=== PATIENT | male | born 1935 | race Caucasian/White ===

== ENCOUNTER 2017-08-29 20:12 | Emergency (ER) | payer MEDICARE, BC ==
[2017-08-29 20:33] VITALS: BP 126/62
--- NOTE | 2017-08-29 21:19 | EDM.PDOC ---
ED HPI GENERAL MEDICAL PROBLEM - General Chief Complaint: Syncope Stated Complaint: DIZZY Time Seen by Provider: 08/29/17 21:05 Source of Information: Reports: Patient, Family () History Limitations: Reports: No Limitations - History of Present Illness INITIAL COMMENTS - FREE TEXT/NARRATIVE: The patient states that he felt lightheaded around 19:40 this evening, while walking from the bathroom. The symptoms came on suddenly, but only lasted for about 5 minutes, resolving when he sat down. He had a second episode around 20: 30, also lasting about 5 minutes. The patient denies any other symptoms, such as headache, chest pain, palpitations, dyspnea, nausea, emesis, constipation, diarrhea, abdominal pain, or urinary symptoms. No prior similar symptoms. The patient's PCP is Dr. Pepper. - Related Data Allergies Allergy/AdvReac Type Severity Reaction Status Date / Time Fish Containing Products Allergy Airway Verified 08/29/17 20:26 Tightness fish derived Allergy Airway Verified 08/29/17 20:26 Tightness fish oil Allergy Airway Verified 08/29/17 20:26 Tightness fish Allergy Airway Uncoded 08/29/17 20:26 Tightness Home Meds: Home Meds Aspirin [Ecotrin] 1 tab PO DAILY 11/12/13 [History] Finasteride [Proscar] 1 tab PO DAILY 11/12/13 [History] Hyalur Ac/Chond Sul/Colg II/AA [Hyaluronic Acid 40 MG] 120 mg PO DAILY 11/12/13 [History] Hydrochlorothiazide 1 cap PO BID 11/12/13 [History] Lutein/Min/Vit C/Vit E Acetate [Ocuvite Lutein] 2 cap PO DAILY 11/12/13 [History ] Niacin 1 cap PO BID 11/12/13 [History] Tamsulosin [Flomax] 1 cap PO DAILY 11/12/13 [History] Past Medical History HEENT History: Reports: Cataract, Glaucoma Cardiovascular History: Reports: High Cholesterol (resolved after weight loss), Hypertension Genitourinary History: Reports: BPH Musculoskeletal History: Reports: Osteoarthritis - Past Surgical History HEENT Surgical History: Reports: Cataract Surgery, Oral Surgery ([place] teeth extraction), Tonsillectomy GI Surgical History: Reports: Appendectomy, Cholecystectomy Neurological Surgical History: Reports: Lumbar Spine (Laminectomy) Musculoskeletal Surgical History: Reports: Hip Replacement (right) Social & Family History - Tobacco Use Smoking Status *Q: Former Smoker Years of Tobacco use: 2 Packs/Tins Daily: 1 Second Hand Smoke Exposure: No - Caffeine Use Caffeine Use: Reports: Coffee - Alcohol Use Alcohol Use History: Yes Date/Time of Last Drink Comment: None since 2010 - Recreational Drug Use Recreational Drug Use: No - Living Situation & Occupation Living situation: Reports: , with Spouse Occupation: Retired ED ROS GENERAL - Review of Systems Review Of Systems: ROS reveals no pertinent complaints other than HPI. ED EXAM, DIZZINESS - Physical Exam Exam: See Below Exam Limited By: No Limitations General Appearance: Alert, WD/WN, No Apparent Distress Eye Exam: Bilateral Eye: Normal Inspection Ears: Normal External Exam Nose: Normal Inspection, No Blood Throat/Mouth: Normal Inspection, Normal Lips, Normal Teeth, Normal Gums, Normal Oropharynx, Normal Voice, No Airway Compromise Head Exam: Atraumatic Neck: Normal Inspection, Full Range of Motion Respiratory/Chest: No Respiratory Distress, Lungs Clear, Normal Breath Sounds, No Accessory Muscle Use Cardiovascular: Normal Peripheral Pulses, Regular Rate, Rhythm, No Gallop, No JVD, No Murmur, No Rub, Other (Trace bilateral pretibial edema) GI/Abdominal: Normal Bowel Sounds, Soft, Non-Tender, No Organomegaly, No Distention, No Abnormal Bruit, No Mass (Male) Exam: Deferred Rectal (Males) Exam: Deferred Neurological: Alert, No Motor/Sensory Deficits, Oriented x 3 Back Exam: Normal Inspection, Full Range of Motion, NT Extremities: Normal Inspection, Normal Range of Motion, No Pedal Edema, Normal Capillary Refill Psychiatric: Normal Affect Skin Exam: Warm, Dry, Intact, Normal Color, No Rash EKG INTERPRETATION EKG Date: 08/29/17 Time: 21:08 Rhythm: Other (Sinus bradycardia) Rate (Beats/Min): 57 [place]: Normal P-Wave: Present QRS: RBBB ST-T: Normal QT: Normal Comparison: No Change (11/12/2013) Course - Vital Signs Last Recorded V/S: Last Vital Signs Temp 36.1 C 08/29/17 20:28 Pulse 64 08/29/17 20:28 Resp 14 08/29/17 20:28 BP 126/62 08/29/17 20:28 Pulse Ox 96 08/29/17 20:28 Orthostatic Blood Pressure [ 142/67 Standing] Orthostatic Blood Pressure [ 149/78 Sitting] Orthostatic Blood Pressure [ 138/67 Supine] - Orders/Labs/Meds Orders: Active Orders 24 hr Category Date Time Status EKG Documentation Completion [RC] STAT Care 08/29/17 21:06 Active Orthostatic Vital Signs [RC] STAT Care 08/29/17 21:06 Active UA W/MICROSCOPIC [URIN] Stat Lab 08/29/17 21:56 Ordered Labs: Laboratory Tests 08/29/17 08/29/17 08/29/17 Range/Units 21:30 21:30 21:56 WBC 8.00 (4.23-9.07) K/mm3 RBC 4.27 L (4.63-6.08) M/mm3 Hgb 13.4 L (13.7-17.5) gm/L Hct 40.4 (40.1-51.0) % MCV 94.6 H (79.0-92.2) fl MCH 31.4 (25.7-32.2) pg MCHC 33.2 (32.2-35.5) g/dl RDW Std Deviation 44.4 H (35.1-43.9) fL Plt Count 200 (163-337) K/mm3 MPV 9.5 (9.4-12.3) fl Neutrophils % (Manual) 67 H (40-60) % Band Neutrophils % 0 (0-10) % Lymphocytes % (Manual) 24 (20-40) % Atypical Lymphs % 0 % Monocytes % (Manual) 5 (2-10) % Eosinophils % (Manual) 4 (0.8-7.0) % Basophils % (Manual) 0 L (0.2-1.2) Platelet Estimate Adequate RBC Morph Comment Normal Sodium 142 (136-145) mEq/L Potassium 3.3 L (3.5-5.1) mEq/L Chloride 108 H (98-107) mEq/L Carbon Dioxide 28 (21-32) mEq/L Anion Gap 9.3 (5-15) BUN 24 H (7-18) mg/dL Creatinine 1.0 (0.7-1.3) mg/dL Est Cr Clr Drug Dosing 61.70 mL/min Estimated GFR (MDRD) > 60 (>60) mL/min BUN/Creatinine Ratio 24.0 H (14-18) Glucose 102 (83-115) mg/dL Calcium 8.1 L (8.5-10.1) mg/dL Magnesium 1.8 (1.8-2.4) mg/dl Total Bilirubin 0.6 (0.2-1.0) mg/dL AST 17 (15-37) U/L ALT 16 (16-63) U/L Alkaline Phosphatase 71 (46-116) U/L Troponin I < 0.017 (0.00-0.056) ng/mL Total Protein 6.4 (6.4-8.2) g/dl Albumin 3.3 L (3.4-5.0) g/dl Globulin 3.1 gm/dL Albumin/Globulin Ratio 1.1 (1-2) Urine Color Yellow (Yellow) Urine Appearance Clear (Clear) Urine pH 7.0 (5.0-8.0) Ur Specific [place] 1.025 (1.005-1.030) Urine Protein Negative (Negative) Urine Glucose (UA) Negative (Negative) Urine Ketones Negative (Negative) Urine Occult Blood Negative (Negative) Urine Nitrite Negative (Negative) Urine Bilirubin Negative (Negative) Urine Urobilinogen 1.0 (0.2-1.0) Ur Leukocyte Esterase Negative (Negative) Urine RBC Not seen (0-5) /hpf Urine WBC 0-5 (0-5) /hpf Ur Epithelial Cells 0-5 (0-5) /hpf Urine Bacteria Not seen (FEW) /hpf Urine Mucus Not seen (FEW) /hpf - Re-Assessments/Exams Free Text/Narrative Re-Assessment/Exam: 08/29/17 21:08 The patient is not orthostatic. 08/29/17 22:28 Case discussed with the patient and his . Today's workup is unremarkable, and does not explain the cause of his symptoms. The patient feels well enough to go home. I am recommending that if his symptoms recur, that he either returns to the ED or follows up with his PCP, Dr. Pepper. Departure - Departure Time of Disposition: 22:30 Disposition: Home, Self-Care 01 Condition: Good Clinical Impression: Intermittent lightheadedness - Discharge Information Referrals: Trevor Pepper MD [Primary Care Provider] - Forms: ED Department Discharge Additional Instructions: You were seen in the emergency room for 2 brief episodes of lightheadedness. Workup in the ER included blood work, a urinalysis, positional blood pressure checks, and an ECG. Your entire workup was unremarkable, and does not explain the cause of your symptoms. If your symptoms persist, either return to the ER for reevaluation, or follow- up with your PCP, Dr. Pepper. - My Orders Last 24 Hours: My Active Orders 08/29/17 21:06 EKG Documentation Completion [RC] STAT Orthostatic Vital Signs [RC] STAT 08/29/17 21:56 UA W/MICROSCOPIC [URIN] Stat - Assessment/Plan Last 24 Hours: My Active Orders 08/29/17 21:06 EKG Documentation Completion [RC] STAT Orthostatic Vital Signs [RC] STAT 08/29/17 21:56 UA W/MICROSCOPIC [URIN] Stat
== END 2017-08-29 22:43 | disposition home or self-care (01) ==
LOC: JD.ED 20:12
DX: R42 Dizziness and giddiness (principal); E78.00 Pure hypercholesterolemia, unspecified; Z91.013 Allergy to seafood; Z79.82 Long term (current) use of aspirin; Z79.899 Other long term (current) drug therapy; Z87.891 Personal history of nicotine dependence
CPT/HCPCS: 36415; 80053; 81001; 83735; 84484; 85007; 85027; 93005; 93010; 99284-25

== ENCOUNTER 2017-10-21 17:45 | Emergency (ER) | payer MEDICARE, BC ==
[2017-10-21 17:55] VITALS: BP 148/74
[2017-10-21] MEDS ORDERED: Sodium Chloride 0.9% 10 ML Syringe FLUSH PRN (18:22)
[2017-10-21] MEDS ORDERED: Sodium Chloride 0.9% 500 ML IV ONE (18:30)
--- NOTE | 2017-10-21 18:33 | EDM.PDOC ---
ED HPI GENERAL MEDICAL PROBLEM - General Chief Complaint: General Stated Complaint: DIZZYNESS Time Seen by Provider: 10/21/17 18:22 Source of Information: Reports: Patient, RN Notes Reviewed - History of Present Illness INITIAL COMMENTS - FREE TEXT/NARRATIVE: 82-year-old male comes in with symptoms of weakness lightheadedness, near syncope. States this initially had him about an hour and a half ago when he had just stood up and walked into the kitchen. Started feeling lightheaded and dizzy and had to sit down. He felt better with some rest and time but then when he went towards a short time later sputum again. Vertigo. He denies chest pain or difficulty breathing. No abdominal pain nausea vomiting or diarrhea. He has no known history for coronary artery disease. He is on hydrochlorothiazide for hypertension. - Related Data Allergies Allergy/AdvReac Type Severity Reaction Status Date / Time Fish Containing Products Allergy Airway Verified 10/21/17 17:54 Tightness fish derived Allergy Airway Verified 10/21/17 17:54 Tightness fish oil Allergy Airway Verified 10/21/17 17:54 Tightness fish Allergy Airway Uncoded 10/21/17 17:54 Tightness Home Meds: Home Meds Finasteride [Proscar] 1 tab PO DAILY 11/12/13 [History] Tamsulosin [Flomax] 2 cap PO BEDTIME 11/12/13 [History] hydroCHLOROthiazide [Hydrochlorothiazide] 1 cap PO DAILY 11/12/13 [History] Bimatoprost [LUMIGAN 0.01% Ophth Soln] 1 drop EYERT DAILY 10/21/17 [History] Brimonidine [Alphagan 0.2% Ophth Soln] 1 drop EYEBOTH BID 10/21/17 [History] Ciprofloxacin [Ciprofloxacin 0.3% Ophth Soln] 1 drop EYERT TID 10/21/17 [History ] Flu Vaccin [id number] Up/Pf [Afluria [id number] Syringe] 1 injection INJECT ASDIRECTED 10/21/17 [History] Gentamicin [Gentak 0.3% Ophth Oint] 1 drop EYERT Q4H 10/21/17 [History] Ketoconazole [Nizoral 2% Crm] 1 applic TOP BID 10/21/17 [History] Latanoprost/Pf [Latanoprost 0.005% Eye Drop] 1 drop EYEBOTH BEDTIME 10/21/17 [ History] Timolol Maleate [Timoptic 0.5% Ophth Soln] 1 drop EYEBOTH DAILY 10/21/17 [ History] Triamcinolone Acetonide [Triamcinolone Acetonide 0.1% Crm] 1 applic TOP BID [History] Past Medical History HEENT History: Reports: Cataract, Glaucoma Cardiovascular History: Reports: High Cholesterol, Hypertension Other Cardiovascular History: Had hypercholesteremia but got his weight under control and no longer needed medication. Genitourinary History: Reports: BPH Musculoskeletal History: Reports: Osteoarthritis - Past Surgical History HEENT Surgical History: Reports: Cataract Surgery, Oral Surgery, Tonsillectomy GI Surgical History: Reports: Appendectomy, Cholecystectomy Neurological Surgical History: Reports: Lumbar Spine Musculoskeletal Surgical History: Reports: Hip Replacement Social & Family History - Tobacco Use Smoking Status *Q: Former Smoker Used Tobacco, but Quit: Yes Month/Year Tobacco Last Used: 30 years - Caffeine Use Caffeine Use: Reports: Coffee, Tea - Recreational Drug Use Recreational Drug Use: No - Living Situation & Occupation Living situation: Reports: , with Spouse Occupation: Retired ED ROS GENERAL - Review of Systems Review Of Systems: See Below Constitutional: Denies: Fever, Chills, Diaphoresis HEENT: Reports: No Symptoms Respiratory: Denies: Shortness of Breath Cardiovascular: Denies: Chest Pain GI/Abdominal: Denies: Abdominal Pain, Hematemesis, Hematochezia, Melena, Vomiting Musculoskeletal: Reports: No Symptoms Skin: Reports: No Symptoms Neurological: Reports: Dizziness. Denies: Numbness, Tingling, Trouble Speaking , Difficulty Walking ED EXAM, GENERAL - Physical Exam Exam: See Below General Appearance: Alert, No Apparent Distress Throat/Mouth: Normal Inspection, Normal Oropharynx Head: Atraumatic Neck: Supple, Full Range of Motion Respiratory/Chest: No Respiratory Distress, Lungs Clear, Normal Breath Sounds Cardiovascular: Regular Rate, Rhythm GI/Abdominal: Soft, Non-Tender Back Exam: No: CVA Tenderness (L), CVA Tenderness (R) Extremities: Normal Inspection. No: Pedal Edema, Leg Pain Neurological: Alert, Oriented, No Motor/Sensory Deficits Skin Exam: Warm, Dry, Normal Color EKG INTERPRETATION EKG Date: 10/21/17 Rhythm: NSR [place]: Normal P-Wave: Present QRS: RBBB ST-T: Other (T-wave inversion V2 and V3) Course - Vital Signs Last Recorded V/S: Last Vital Signs Temp 98.5 F 10/21/17 17:52 Pulse 63 10/21/17 17:52 Resp 18 10/21/17 17:52 BP 148/74 H 10/21/17 17:52 Pulse Ox 94 L 10/21/17 17:52 Orthostatic Blood Pressure [ 142/76 Standing] Orthostatic Blood Pressure [ 146/83 Sitting] Orthostatic Blood Pressure [ 146/74 Supine] - Orders/Labs/Meds Orders: Active Orders 24 hr Category Date Time Status EKG 12 Lead [EKG Documentation Completion] [RC] STAT Care 10/21/17 18:22 Active Orthostatic Vital Signs [RC] ASDIRECTED Care 10/21/17 18:03 Active Peripheral IV Care [RC] . DIRECTED Care 10/21/17 18:23 Active Sodium Chloride 0.9% [Saline Flush] Med 10/21/17 18:22 Active 10 ml FLUSH ASDIRECTED PRN Peripheral IV Insertion Adult [OM.PC] Stat Oth 10/21/17 18:22 Ordered Medication Orders Sodium Chloride (Saline Flush) 10 ml FLUSH ASDIRECTED PRN PRN Reason: Keep Vein Open Labs: Laboratory Tests 10/21/17 10/21/17 Range/Units 18:54 18:54 WBC 10.30 H (4.23-9.07) K/mm3 RBC 4.45 L (4.63-6.08) M/mm3 Hgb 14.0 (13.7-17.5) gm/L Hct 42.5 (40.1-51.0) % MCV 95.5 H (79.0-92.2) fl MCH 31.5 (25.7-32.2) pg MCHC 32.9 (32.2-35.5) g/dl RDW Std Deviation 45.2 H (35.1-43.9) fL Plt Count 208 (163-337) K/mm3 MPV 9.6 (9.4-12.3) fl Neut % (Auto) 71.5 H (34.0-67.9) % Lymph % (Auto) 16.5 L (21.8-53.1) % [place] % (Auto) 8.3 (5.3-12.2) % Eos % (Auto) 2.9 (0.8-7.0) Baso % (Auto) 0.4 (0.1-1.2) % Neut # (Auto) 7.37 H (1.78-5.38) K/mm3 Lymph # (Auto) 1.70 (1.32-3.57) K/mm3 [place] # (Auto) 0.85 H (0.30-0.82) K/mm3 Eos # (Auto) 0.30 (0.04-0.54) K/mm3 Baso # (Auto) 0.04 (0.01-0.08) K/mm3 Sodium 143 (136-145) mEq/L Potassium 3.8 (3.5-5.1) mEq/L Chloride 107 (98-107) mEq/L Carbon Dioxide 28 (21-32) mEq/L Anion Gap 11.8 (5-15) BUN 22 H (7-18) mg/dL Creatinine 0.9 (0.7-1.3) mg/dL Est Cr Clr Drug Dosing 68.56 mL/min Estimated GFR (MDRD) > 60 (>60) mL/min BUN/Creatinine Ratio 24.4 H (14-18) Glucose 107 (83-115) mg/dL Calcium 8.4 L (8.5-10.1) mg/dL Total Bilirubin 0.8 (0.2-1.0) mg/dL AST 17 (15-37) U/L ALT 20 (16-63) U/L Alkaline Phosphatase 74 (46-116) U/L Troponin I < 0.017 (0.00-0.056) ng/mL Total Protein 6.9 (6.4-8.2) g/dl Albumin 3.4 (3.4-5.0) g/dl Globulin 3.5 gm/dL Albumin/Globulin Ratio 1.0 (1-2) Meds: Medications Generic Name Dose Route Start Last Admin Trade Name Freq PRN Reason Stop Dose Admin Sodium Chloride 10 ml 10/21/17 18:22 Saline Flush FLUSH ASDIRECTED PRN Keep Vein Open Discontinued Medications Generic Name Dose Route Start Last Admin Trade Name Freq PRN Reason Stop Dose Admin Sodium Chloride 500 mls @ 999 mls/hr 10/21/17 18:30 08/16/18 19:10 Normal Saline IV 10/21/17 19:00 999 mls/hr .BOLUS ONE Administration Departure - Departure Time of Disposition: 19:37 Disposition: Home, Self-Care 01 Condition: Fair Clinical Impression: Near syncope - Discharge Information Referrals: Trevor Pepper MD [Primary Care Provider] - Forms: ED Department Discharge Additional Instructions: Drink plenty of water to maintain hydration, continue current medications as prescribed. Carotid ultrasound test to look for possible blockage of your carotid arteries. Order has been written and sent over to Radiology. They will call you in the morning to set up a time. You can than obtain results when you see Dr. Thompson later next week. If you do get dizzy standing at any time be sure to sit or lay down and be sure to get your head down as low as possible as discussed. Return to ED as needed if symptoms worsening in any way. - My Orders Last 24 Hours: My Active Orders 10/21/17 18:22 EKG 12 Lead [EKG Documentation Completion] [RC] STAT Sodium Chloride 0.9% [Saline Flush] 10 ml FLUSH ASDIRECTED PRN Peripheral IV Insertion Adult [OM.PC] Stat 10/21/17 18:23 Peripheral IV Care [RC] . DIRECTED - Assessment/Plan Last 24 Hours: My Active Orders 10/21/17 18:22 EKG 12 Lead [EKG Documentation Completion] [RC] STAT Sodium Chloride 0.9% [Saline Flush] 10 ml FLUSH ASDIRECTED PRN Peripheral IV Insertion Adult [OM.PC] Stat 10/21/17 18:23 Peripheral IV Care [RC] . DIRECTED
== END 2017-10-21 19:50 | disposition home or self-care (01) ==
LOC: JD.ED 17:45
DX: R55 Syncope and collapse (principal); I10 Essential (primary) hypertension; Z79.899 Other long term (current) drug therapy; Z87.891 Personal history of nicotine dependence; Z91.013 Allergy to seafood
CPT/HCPCS: 36415; 80053; 84484; 85025; 93005; 96360; 99284; J7040

== ENCOUNTER 2019-09-12 15:50 | Emergency (ER) | payer MEDICARE, BC ==
[2019-09-12] MEDS ORDERED: Sodium Chloride 0.9% 10 ML Syringe FLUSH PRN (16:06)
[2019-09-12] MEDS ORDERED: Diltiazem 50 MG/10 ML SDV IVPUSH ONE (16:08)
[2019-09-12] MEDS ORDERED: Diltiazem 100 MG in Sodium Chloride 0.9% 100 ML IV SCH (16:15)
--- NOTE | 2019-09-12 16:51 | CR ---
Chest: Portable view of the chest was obtained. Comparison: Prior chest x-ray of 02/03/18. Heart size is within normal limits for portable technique. Tortuous thoracic aorta is seen. Lungs are clear with no acute parenchymal change. Bony structures are grossly intact. Impression: 1. Nothing acute is identified on portable chest x-ray. 2. No change from previous chest x-ray is seen. Diagnostic code #1 This report was dictated in MDT
--- NOTE | 2019-09-12 17:57 | EDM.PDOC ---
ED HPI GENERAL MEDICAL PROBLEM - General Chief Complaint: Chest Pain Stated Complaint: CHEST PAIN Time Seen by Provider: 09/12/19 16:03 Source of Information: Reports: Patient History Limitations: Reports: No Limitations - History of Present Illness INITIAL COMMENTS - FREE TEXT/NARRATIVE: The patient presents with chest pain. He was picking weeds today and he developed some chest pain. He also has a fast heart rate. He did not notice it was fast. He has no fever, chills, cough, congestion, runny nose, shortness of breath, abdominal pain, nausea or vomiting. He has no history of A-fib or heart disease. He does have hypertension. Onset: Sudden Duration: Hour(s): Location: Reports: Chest Quality: Reports: Sharp Severity: Moderate Improves with: Reports: None Worsens with: Reports: None Associated Symptoms: Reports: Chest Pain. Denies: Confusion, Cough, Fever/Chills, Headaches, Nausea/Vomiting, Shortness of Breath Mid-Sternal Pain Score (Numeric/FACES): 6 - Related Data Allergies Allergy/AdvReac Type Severity Reaction Status Date / Time Fish Containing Products Allergy Airway Verified 02/03/18 07:41 Tightness fish derived Allergy Airway Verified 02/03/18 07:41 Tightness fish oil Allergy Airway Verified 02/03/18 07:41 Tightness fish Allergy Airway Uncoded 02/03/18 07:41 Tightness Home Meds: Home Meds Finasteride [Proscar] 5 mg PO DAILY 11/12/13 [History] Tamsulosin [Flomax] 0.8 mg PO BEDTIME 11/12/13 [History] hydroCHLOROthiazide [Hydrochlorothiazide] 1 cap PO DAILY 11/12/13 [History] Ketoconazole [Nizoral 2% Crm] 1 applic TOP BID 10/21/17 [History] Latanoprost/Pf [Latanoprost 0.005% Eye Drop] 1 drop EYEBOTH BEDTIME 10/21/17 [History] Aspirin 325 mg PO DAILY 02/03/18 [History] Niacin [Niacin ER] 750 mg PO BEDTIME 02/03/18 [History] Metoprolol Succinate 25 mg PO DAILY #30 tab.er.24h 09/12/19 [Rx] Rivaroxaban [Xarelto] 20 mg PO DAILY #30 tablet 09/12/19 [Rx] Past Medical History HEENT History: Reports: Cataract, Glaucoma Cardiovascular History: Reports: High Cholesterol, Hypertension Other Cardiovascular History: Had hypercholesteremia but got his weight under control and no longer needed medication. Genitourinary History: Reports: BPH Musculoskeletal History: Reports: Osteoarthritis Neurological History: Reports: Alzheimers Disease - Infectious Disease History Infectious Disease History: Reports: Chicken Pox, Measles, Mumps - Past Surgical History HEENT Surgical History: Reports: Cataract Surgery, Oral Surgery, Tonsillectomy GI Surgical History: Reports: Appendectomy, Cholecystectomy Neurological Surgical History: Reports: Lumbar Spine Musculoskeletal Surgical History: Reports: Hip Replacement Social & Family History - Family History Family Medical History: Noncontributory - Tobacco Use Smoking Status *Q: Never Smoker Second Hand Smoke Exposure: No - Caffeine Use Caffeine Use: Reports: Coffee, Tea - Living Situation & Occupation Living situation: Reports: , with Spouse Occupation: Retired ED ROS GENERAL - Review of Systems Review Of Systems: See Below Constitutional: Reports: No Symptoms HEENT: Reports: No Symptoms Respiratory: Reports: No Symptoms Cardiovascular: Reports: Chest Pain Endocrine: Reports: No Symptoms GI/Abdominal: Reports: No Symptoms : Reports: No Symptoms Musculoskeletal: Reports: No Symptoms ED EXAM, GENERAL - Physical Exam Exam: See Below Exam Limited By: No Limitations General Appearance: Alert, No Apparent Distress Ears: Normal External Exam Nose: Normal Inspection Head: Atraumatic, Normocephalic Neck: Normal Inspection Respiratory/Chest: No Respiratory Distress, Lungs Clear, Normal Breath Sounds Cardiovascular: Tachycardia, Irregularly Irregular GI/Abdominal: Soft, Non-Tender, No Organomegaly, No Mass Back Exam: Normal Inspection Extremities: Normal Inspection EKG INTERPRETATION EKG Date: 09/12/19 Time: 16:04 Rhythm: A-Fib Rate (Beats/Min): 120 [place]: Normal QRS: Normal ST-T: Normal QT: Normal Course - Vital Signs Last Recorded V/S: Last Vital Signs Temp 97.6 F 09/12/19 16:03 Pulse 125 H 09/12/19 16:03 Resp 23 H 09/12/19 16:03 BP 131/88 09/12/19 16:03 Pulse Ox 97 09/12/19 16:03 - Orders/Labs/Meds Orders: Active Orders 24 hr Category Date Time Status Cardiac Monitoring [RC] . DIRECTED Care 09/12/19 16:06 Active EKG Documentation Completion [RC] ASDIRECTED Care 09/12/19 17:46 Active EKG Documentation Completion [RC] STAT Care 09/12/19 16:07 Active Peripheral IV Care [RC] . DIRECTED Care 09/12/19 16:07 Active TROPONIN I [CHEM] Stat Lab 09/12/19 18:03 Ordered Diltiazem [Cardizem] 100 mg Med 09/12/19 16:15 Active Sodium Chloride 0.9% [Normal Saline] 100 ml IV TITRATE Sodium Chloride 0.9% [Saline Flush] Med 09/12/19 16:06 Active 10 ml FLUSH ASDIRECTED PRN Peripheral IV Insertion Adult [OM.PC] Stat Oth 09/12/19 16:06 Ordered EKG 12 Lead [EK] Stat Ther 09/12/19 17:46 Ordered Medication Orders Diltiazem HCl 100 mg/ Sodium (Chloride) 100 mls @ 10 mls/hr IV TITRATE KI; Protocol Last Admin: 09/12/19 16:42 Dose: 10 mg/hr, 10 mls/hr Documented by: HERMMIC Sodium Chloride (Saline Flush) 10 ml FLUSH ASDIRECTED PRN PRN Reason: Keep Vein Open Last Admin: 09/12/19 17:12 Dose: 10 ml Documented by: HERMMIC Labs: Laboratory Tests 09/12/19 09/12/19 Range/Units 16:00 16:00 WBC 6.49 (4.23-9.07) K/mm3 RBC 4.33 L (4.63-6.08) M/mm3 Hgb 13.6 L (13.7-17.5) gm/dl Hct 41.7 (40.1-51.0) % MCV 96.3 H (79.0-92.2) fl MCH 31.4 (25.7-32.2) pg MCHC 32.6 (32.2-35.5) g/dl RDW Std Deviation 45.1 H (35.1-43.9) fL Plt Count 206 (163-337) K/mm3 MPV 10.3 (9.4-12.3) fl Neut % (Auto) 63.6 (34.0-67.9) % Lymph % (Auto) 22.2 (21.8-53.1) % [place] % (Auto) 9.6 (5.3-12.2) % Eos % (Auto) 3.5 (0.8-7.0) Baso % (Auto) 0.6 (0.1-1.2) % Neut # (Auto) 4.13 (1.78-5.38) K/mm3 Lymph # (Auto) 1.44 (1.32-3.57) K/mm3 [place] # (Auto) 0.62 (0.30-0.82) K/mm3 Eos # (Auto) 0.23 (0.04-0.54) K/mm3 Baso # (Auto) 0.04 (0.01-0.08) K/mm3 Sodium 144 (136-145) mEq/L Potassium 3.3 L (3.5-5.1) mEq/L Chloride 107 (98-107) mEq/L Carbon Dioxide 28 (21-32) mEq/L Anion Gap 12.3 (5-15) BUN 20 H (7-18) mg/dL Creatinine 1.0 (0.7-1.3) mg/dL Est Cr Clr Drug Dosing 59.61 mL/min Estimated GFR (MDRD) > 60 (>60) mL/min BUN/Creatinine Ratio 20.0 H (14-18) Glucose 126 H (83-115) mg/dL Calcium 8.7 (8.5-10.1) mg/dL Total Bilirubin 1.0 (0.2-1.0) mg/dL AST 16 (15-37) U/L ALT 20 (16-63) U/L Alkaline Phosphatase 64 (46-116) U/L Troponin I < 0.017 (0.00-0.056) ng/mL Total Protein 7.0 (6.4-8.2) g/dl Albumin 3.5 (3.4-5.0) g/dl Globulin 3.5 gm/dL Albumin/Globulin Ratio 1.0 (1-2) TSH 3rd Generation 1.582 (0.358-3.74) uIU/mL Meds: Medications Generic Name Dose Route Start Last Admin Trade Name Freq PRN Reason Stop Dose Admin Diltiazem HCl 100 mg/ Sodium 100 mls @ 10 mls/hr 09/12/19 16:15 09/12/19 16:42 Chloride IV 10 mg/hr TITRATE KI 10 mls/hr Administration Protocol 10 MG/HR Sodium Chloride 10 ml 09/12/19 16:06 09/12/19 17:12 Saline Flush FLUSH 10 ml ASDIRECTED PRN Administration Keep Vein Open Discontinued Medications Generic Name Dose Route Start Last Admin Trade Name [place] PRN Reason Stop Dose Admin Diltiazem HCl 10 mg 09/12/19 16:08 09/12/19 16:28 Cardizem IVPUSH 09/12/19 16:09 10 mg ONETIME ONE Administration Metoprolol Tartrate 25 mg 09/12/19 18:07 Lopressor PO 09/12/19 18:08 ONETIME ONE Rivaroxaban 20 mg 09/12/19 18:06 Xarelto PO 09/12/19 18:07 ONETIME ONE - Re-Assessments/Exams Free Text/Narrative Re-Assessment/Exam: 09/12/19 18:19 I ordered an IV saline lock, EKG, CXR, labs, cardizem bolus of 10mg IV and a drip at 10mg/hr. His EKG shows atrial fibrillation at 120. His CXR looks good. His CBC and CMP look good. His troponin is negative. His TSH is normal. 09/12/19 18:20 He converted to a NSR with RBBB. He is feeling good now. I will get a repeat troponin. I will give him a dose of xarelto and some lopressor. I will discharge him home and get him on those medications and have him follow up with Dr Thompson. Departure - Departure Time of Disposition: 18:25 Disposition: Home, Self-Care 01 Condition: Good Clinical Impression: Atrial fibrillation with RVR Prescriptions: Metoprolol Succinate 25 mg PO DAILY #30 tab.er.24h Rivaroxaban [Xarelto] 20 mg PO DAILY #30 tablet Referrals: Trevor Pepper MD [Primary Care Provider] - 3 Days Forms: ED Department Discharge Additional Instructions: Drink plenty of fluids. Take your medications as prescribed. Take the xarelto at dinner. Take the metoprlol 25mg daily. Follow up with Dr Thompson. Please return if you are worse. Sepsis Event Note (ED) - Evaluation Sepsis Screening Result: No Definite Risk - Focused Exam Vital Signs: Vital Signs Temp Pulse Resp BP Pulse Ox 09/12/19 16:03 97.6 F 125 H 23 H 131/88 97 - My Orders Last 24 Hours: My Active Orders 09/12/19 16:06 Cardiac Monitoring [RC] . DIRECTED Sodium Chloride 0.9% [Saline Flush] 10 ml FLUSH ASDIRECTED PRN Peripheral IV Insertion Adult [OM.PC] Stat 09/12/19 16:07 EKG Documentation Completion [RC] STAT Peripheral IV Care [RC] . DIRECTED 09/12/19 16:15 Diltiazem [Cardizem] 100 mg Sodium Chloride 0.9% [Normal Saline] 100 ml IV TITRATE 09/12/19 17:46 EKG Documentation Completion [RC] ASDIRECTED EKG 12 Lead [EK] Stat 09/12/19 18:03 TROPONIN I [CHEM] Stat - Assessment/Plan Last 24 Hours: My Active Orders 09/12/19 16:06 Cardiac Monitoring [RC] . DIRECTED Sodium Chloride 0.9% [Saline Flush] 10 ml FLUSH ASDIRECTED PRN Peripheral IV Insertion Adult [OM.PC] Stat 09/12/19 16:07 EKG Documentation Completion [RC] STAT Peripheral IV Care [RC] . DIRECTED 09/12/19 16:15 Diltiazem [Cardizem] 100 mg Sodium Chloride 0.9% [Normal Saline] 100 ml IV TITRATE 09/12/19 17:46 EKG Documentation Completion [RC] ASDIRECTED EKG 12 Lead [EK] Stat 09/12/19 18:03 TROPONIN I [CHEM] Stat
[2019-09-12] MEDS ORDERED: Rivaroxaban 10 MG Tab PO ONE (18:06)
[2019-09-12] MEDS ORDERED: Metoprolol Tartrate 25 MG Tab PO ONE (18:07)
[2019-09-12 18:49] VITALS: BP 140/74; PULSE 60
== END 2019-09-12 19:00 | disposition home or self-care (01) ==
LOC: JD.ED 15:50
DX: I48.91 Unspecified atrial fibrillation (principal); I10 Essential (primary) hypertension; M19.90 Unspecified osteoarthritis, unspecified site; G30.9 Alzheimer's disease, unspecified; F02.80 Dementia in other diseases classified elsewhere, unspecified severity, without behavioral disturbance, psychotic disturbance, mood disturbance, and anxiety; Z91.013 Allergy to seafood; Z79.82 Long term (current) use of aspirin; Z79.899 Other long term (current) drug therapy; Z79.01 Long term (current) use of anticoagulants
CPT/HCPCS: 36415; 71045; 80053; 84443; 84484; 85025; 93005; 96365; 96366; 96376; 99285; A9270; J3490; J7050; 93010; 99284

== ENCOUNTER 2019-09-27 16:22 | Emergency (ER) | payer MEDICARE, BC ==
[2019-09-27 16:37] VITALS: BP 147/67; PULSE 58
[2019-09-27] MEDS ORDERED: Sodium Chloride 0.9% 10 ML Syringe FLUSH PRN (16:47)
--- NOTE | 2019-09-27 17:08 | EDM.PDOC ---
<Lam Jacobson - Last Filed: 09/27/19 17:00> ED HPI GENERAL MEDICAL PROBLEM - General Chief Complaint: Chest Pain Stated Complaint: CHEST PAIN Time Seen by Provider: 09/27/19 16:38 Source of Information: Reports: Patient, Family History Limitations: Reports: No Limitations - History of Present Illness INITIAL COMMENTS - FREE TEXT/NARRATIVE: Mr. Pérez is an 84 YO male that presents to the ED with a sudden onset of crushing chest pain while playing cards. Pain started approximately 30 minutes prior to arrival. Nothing makes pain better or worse. When asked to rate the pain he stated, "the pain is pretty much gone now." Does not radiate to other locations. There was a brief period of shortness of breath when pain began. He was seen approximately 4 weeks ago for a similar event. Diagnosed with atrial fibrillation at that time and was prescribed Xeralto and metoprolol. At today's visit, he denies dizziness, syncope, fatigue, diaphoresis, nausea, vomiting, abdominal pain, orthopnea, PND, dyspnea on exertion. Has not taken OTC medication for pain relief. No history of cardiovascular disease or heart failure. Onset: Today, Sudden Onset Date: 09/27/19 Onset Time: 16:00 Duration: Hour(s): Location: Reports: Chest Quality: Reports: Dull, Pressure Severity: Mild Associated Symptoms: Reports: Shortness of Breath Middle Chest Pain Score (Numeric/FACES): 3 - Related Data Allergies Allergy/AdvReac Type Severity Reaction Status Date / Time Fish Containing Products Allergy Severe Airway Verified 09/27/19 16:37 Tightness fish derived Allergy Severe Airway Verified 09/27/19 16:37 Tightness fish oil Allergy Severe Airway Verified 09/27/19 16:37 Tightness fish Allergy Severe Airway Uncoded 09/27/19 16:37 Tightness Home Meds: Home Meds Finasteride [Proscar] 5 mg PO DAILY 11/12/13 [History] Tamsulosin [Flomax] 0.8 mg PO BEDTIME 11/12/13 [History] hydroCHLOROthiazide [Hydrochlorothiazide] 1 cap PO DAILY 11/12/13 [History] Ketoconazole [Nizoral 2% Crm] 1 applic TOP BID 10/21/17 [History] Latanoprost/Pf [Latanoprost 0.005% Eye Drop] 1 drop EYEBOTH BEDTIME 10/21/17 [History] Aspirin 325 mg PO DAILY 02/03/18 [History] Niacin [Niacin ER] 750 mg PO BEDTIME 02/03/18 [History] Metoprolol Succinate 25 mg PO DAILY #30 tab.er.24h 09/12/19 [Rx] Rivaroxaban [Xarelto] 20 mg PO DAILY #30 tablet 09/12/19 [Rx] Past Medical History HEENT History: Reports: Cataract, Glaucoma Cardiovascular History: Reports: High Cholesterol, Hypertension Other Cardiovascular History: Had hypercholesteremia but got his weight under control and no longer needed medication. Genitourinary History: Reports: BPH Musculoskeletal History: Reports: Osteoarthritis Neurological History: Reports: Alzheimers Disease - Infectious Disease History Infectious Disease History: Reports: Chicken Pox, Measles, Mumps - Past Surgical History HEENT Surgical History: Reports: Cataract Surgery, Oral Surgery, Tonsillectomy GI Surgical History: Reports: Appendectomy, Cholecystectomy Neurological Surgical History: Reports: Lumbar Spine Musculoskeletal Surgical History: Reports: Hip Replacement Social & Family History - Family History Family Medical History: Noncontributory - Caffeine Use Caffeine Use: Reports: Coffee, Tea - Living Situation & Occupation Living situation: Reports: , with Spouse Occupation: Retired ED ROS GENERAL - Review of Systems Review Of Systems: See Below Constitutional: Denies: Fatigue, Diaphoresis, Decreased Appetite, Weight Loss, Weight Gain Respiratory: Reports: Shortness of Breath Cardiovascular: Reports: Chest Pain. Denies: Dyspnea on Exertion, Lightheadedness, Orthopnea, PND, Syncope GI/Abdominal: Denies: Abdominal Pain, Nausea, Vomiting Skin: Denies: Diaphoresis Neurological: Denies: Dizziness, Syncope ED EXAM, GENERAL - Physical Exam Exam: See Below Exam Limited By: No Limitations General Appearance: Alert, No Apparent Distress Head: Atraumatic, Normocephalic Respiratory/Chest: No Respiratory Distress, Lungs Clear, Normal Breath Sounds, No Accessory Muscle Use, Chest Non-Tender Cardiovascular: Regular Rate, Rhythm, No Gallop, No Murmur, No Rub Peripheral Pulses: 2+: Posterior Tibial (L), Posterior Tibial (R), Dorsalis Pedis (L), Dorsalis Pedis (R) GI/Abdominal: Normal Bowel Sounds, Soft, Non-Tender, No Distention Extremities: Pedal Edema (Minor edema up to ankles bilaterally.) Neurological: Alert, Oriented Skin Exam: Warm, Dry, Intact, Normal Color Departure - Departure Disposition: Home, Self-Care 01 Clinical Impression: Atypical chest pain Referrals: Trevor Pepper MD [Primary Care Provider] - 1 Week Forms: ED Department Discharge Additional Instructions: Take your medication as prescribed. Follow up with Dr Thompson within a week. Please return if you are worse. Sepsis Event Note (ED) - Evaluation Sepsis Screening Result: No Definite Risk <Terry Lee - Last Filed: 09/27/19 18:08> EKG INTERPRETATION EKG Date: 09/27/19 Time: 16:30 Rhythm: Other (sinus bradycardia) Rate (Beats/Min): 59 [place]: Normal P-Wave: Present QRS: RBBB ST-T: Normal QT: Normal Course - Vital Signs Last Recorded V/S: Last Vital Signs Temp 97.7 F 09/27/19 16:33 Pulse 58 L 09/27/19 16:33 Resp 22 H 09/27/19 16:33 BP 147/67 H 09/27/19 16:33 Pulse Ox 99 09/27/19 16:33 - Orders/Labs/Meds Orders: Active Orders 24 hr Category Date Time Status Cardiac Monitoring [RC] . DIRECTED Care 09/27/19 16:47 Active EKG Documentation Completion [RC] STAT Care 09/27/19 16:47 Active Peripheral IV Care [RC] . DIRECTED Care 09/27/19 16:47 Active Chest 1V Frontal [CR] Stat Exams 09/27/19 16:48 Taken Sodium Chloride 0.9% [Saline Flush] Med 09/27/19 16:47 Active 10 ml FLUSH ASDIRECTED PRN Peripheral IV Insertion Adult [OM.PC] Stat Oth 09/27/19 16:47 Ordered Medication Orders Sodium Chloride (Saline Flush) 10 ml FLUSH ASDIRECTED PRN PRN Reason: Keep Vein Open Last Admin: 09/27/19 17:00 Dose: 10 ml Documented by: VAISHNAVI Labs: Laboratory Tests 09/27/19 09/27/19 Range/Units 16:42 16:42 WBC 9.67 H (4.23-9.07) K/mm3 RBC 4.02 L (4.63-6.08) M/mm3 Hgb 12.9 L (13.7-17.5) gm/dl Hct 38.8 L (40.1-51.0) % MCV 96.5 H (79.0-92.2) fl MCH 32.1 (25.7-32.2) pg MCHC 33.2 (32.2-35.5) g/dl RDW Std Deviation 44.7 H (35.1-43.9) fL Plt Count 208 (163-337) K/mm3 MPV 10.0 (9.4-12.3) fl Neut % (Auto) 72.5 H (34.0-67.9) % Lymph % (Auto) 14.8 L (21.8-53.1) % [place] % (Auto) 8.6 (5.3-12.2) % Eos % (Auto) 3.5 (0.8-7.0) Baso % (Auto) 0.4 (0.1-1.2) % Neut # (Auto) 7.01 H (1.78-5.38) K/mm3 Lymph # (Auto) 1.43 (1.32-3.57) K/mm3 [place] # (Auto) 0.83 H (0.30-0.82) K/mm3 Eos # (Auto) 0.34 (0.04-0.54) K/mm3 Baso # (Auto) 0.04 (0.01-0.08) K/mm3 Sodium 141 (136-145) mEq/L Potassium 3.4 L (3.5-5.1) mEq/L Chloride 103 (98-107) mEq/L Carbon Dioxide 33 H (21-32) mEq/L Anion Gap 8.4 (5-15) BUN 17 (7-18) mg/dL Creatinine 0.9 (0.7-1.3) mg/dL Est Cr Clr Drug Dosing 72.31 mL/min Estimated GFR (MDRD) > 60 (>60) mL/min BUN/Creatinine Ratio 18.9 H (14-18) Glucose 93 (83-115) mg/dL Calcium 8.6 (8.5-10.1) mg/dL Total Bilirubin 1.3 H (0.2-1.0) mg/dL AST 16 (15-37) U/L ALT 21 (16-63) U/L Alkaline Phosphatase 62 (46-116) U/L Troponin I < 0.017 (0.00-0.056) ng/mL Total Protein 6.9 (6.4-8.2) g/dl Albumin 3.5 (3.4-5.0) g/dl Globulin 3.4 gm/dL Albumin/Globulin Ratio 1.0 (1-2) Meds: Medications Generic Name Dose Route Start Last Admin Trade Name Freq PRN Reason Stop Dose Admin Sodium Chloride 10 ml 09/27/19 16:47 09/27/19 17:00 Saline Flush FLUSH 10 ml ASDIRECTED PRN Administration Keep Vein Open - Re-Assessments/Exams Free Text/Narrative Re-Assessment/Exam: 09/27/19 18:04 I examined the patient myself and I agree with Lam's assessment and plan. I ordered an IV saline lock, EKG, CXR and labs. His EKG shows a sinus bradycardia and RBBB. His CXR looks good. His WBC was elevated slightly at 9.67. His Hgb was 12.9. His K was a little low at 3.4. His troponin is negative. He still feels good. I will discharge him home and he has an echocardiogram tomorrow. Departure - Departure Time of Disposition: 18:10 Condition: Good Sepsis Event Note (ED) - Focused Exam Vital Signs: Vital Signs Temp Pulse Resp BP Pulse Ox 09/27/19 16:33 97.7 F 58 L 22 H 147/67 H 99 - My Orders Last 24 Hours: My Active Orders 09/27/19 16:47 Cardiac Monitoring [RC] . DIRECTED EKG Documentation Completion [RC] STAT Peripheral IV Care [RC] . DIRECTED Sodium Chloride 0.9% [Saline Flush] 10 ml FLUSH ASDIRECTED PRN Peripheral IV Insertion Adult [OM.PC] Stat 09/27/19 16:48 Chest 1V Frontal [CR] Stat - Assessment/Plan Last 24 Hours: My Active Orders 09/27/19 16:47 Cardiac Monitoring [RC] . DIRECTED EKG Documentation Completion [RC] STAT Peripheral IV Care [RC] . DIRECTED Sodium Chloride 0.9% [Saline Flush] 10 ml FLUSH ASDIRECTED PRN Peripheral IV Insertion Adult [OM.PC] Stat 09/27/19 16:48 Chest 1V Frontal [CR] Stat
--- NOTE | 2019-09-28 08:20 | CR ---
Chest: Portable view of the chest was obtained. Comparison: Prior chest x-ray of 09/12/19. Heart size is normal. Upper mediastinum is normal. Stable tortuosity of the thoracic aorta is seen. Lungs are clear with no acute parenchymal change. Bony structures are grossly intact. Impression: 1. Nothing acute is seen on portable chest x-ray. Diagnostic code #1 This report was dictated in MDT
== END 2019-09-27 18:19 | disposition home or self-care (01) ==
LOC: JD.ED 16:22
DX: R07.89 Other chest pain (principal); M19.90 Unspecified osteoarthritis, unspecified site; G30.9 Alzheimer's disease, unspecified; F02.80 Dementia in other diseases classified elsewhere, unspecified severity, without behavioral disturbance, psychotic disturbance, mood disturbance, and anxiety; I10 Essential (primary) hypertension; Z91.013 Allergy to seafood; Z79.82 Long term (current) use of aspirin; Z79.01 Long term (current) use of anticoagulants; Z79.899 Other long term (current) drug therapy
CPT/HCPCS: 36415; 71045; 71045-26; 80053; 84484; 85025; 93005; 93010; 99283; 99285-25

== ENCOUNTER 2020-02-05 11:01 | Emergency (ER) | payer MEDICARE, BC ==
[2020-02-05] MEDS ORDERED: HYDROmorphone 0.5 MG/0.5 ML Syringe IVPUSH ONE (11:33)
[2020-02-05] MEDS ORDERED: Ondansetron 4 MG/2 ML SDV IVPUSH ONE (11:33)
[2020-02-05] MEDS ORDERED: Sodium Chloride 0.9% 1,000 ML IV SCH (11:45)
--- NOTE | 2020-02-05 11:47 | EDM.PDOC ---
ED HPI GENERAL MEDICAL PROBLEM - General Chief Complaint: Trauma Stated Complaint: FALL /RIB INJURY Time Seen by Provider: 02/05/20 11:30 Source of Information: Reports: Patient History Limitations: Reports: No Limitations - History of Present Illness INITIAL COMMENTS - FREE TEXT/NARRATIVE: 85-year-old male presents to the ED after falling outside on concrete sidewalk this morning. Patient has impaired vision with impaired depth perception and macular degeneration and diplopia. He does not usually walk with a cane or a walker although this has been suggested to him in the past. He states he went to reach for the wall at the [employer] this morning and missed falling flat on his back. He did strike the back of his head on the concrete as well as injured his neck and mid back. No reported loss of consciousness but patient was dazed and slightly confused apparently after the injury. Most of his pain however is in his posterior lateral and anterior ribs particular on the left side. Apparently he could walk after the people helped him up from the concrete but he was unable to get up on his own volition. Of concern the patient is on Xarelto 20 mg once daily. Trauma alert was called on this fellow. Of note this fellow is a very poor historian. He states his knows most of his history and has the answers to my questions. For example he does not know that he is on Xarelto or why he is taking this medication. Onset: Today, Sudden Onset Date: 02/05/20 Onset Time: 11:00 Duration: Minutes:, Getting Worse Location: Reports: Head, Neck, Chest (Severe pain posterior lateral chest wall left side), Back (Thoracic and lumbar spine pain.) Quality: Reports: Ache, Sharp, Stabbing, Other Severity: Moderate (Pleuritic type pain when he tries to breathe deeply due to injury to his left ribs.) Improves with: Reports: Rest Worsens with: Reports: Other, Movement Context: Reports: Trauma (Fall outside on concrete sidewalk this morning). Denies: Activity, Exercise (Deep breathing or coughing.), Lifting, Sick Contact Associated Symptoms: Reports: Chest Pain, Malaise, Shortness of Breath, Weakness. Denies: Confusion, Cough, cough w sputum, Diaphoresis, Fever/Chills, Headaches, Loss of Appetite, Nausea/Vomiting, Rash, Seizure, Syncope (Panting respirations cannot take a full deep breath due to pain in his left ribs.) Treatments MILL MANAGER: Reports: Other (see below) (None.) Right Chest Pain Score (Numeric/FACES): 8 - Related Data Allergies Allergy/AdvReac Type Severity Reaction Status Date / Time Fish Containing Products Allergy Severe Airway Verified 02/05/20 11:28 Tightness fish derived Allergy Severe Airway Verified 02/05/20 11:28 Tightness fish oil Allergy Severe Airway Verified 02/05/20 11:28 Tightness fish Allergy Severe Airway Uncoded 09/27/19 16:37 Tightness Home Meds: Home Meds Finasteride [Proscar] 5 mg PO DAILY 11/12/13 [History] Tamsulosin [Flomax] 0.4 mg PO BEDTIME 11/12/13 [History] hydroCHLOROthiazide [Hydrochlorothiazide] 12.5 mg PO DAILY 11/12/13 [History] Latanoprost/Pf [Latanoprost 0.005% Eye Drop] 1 drop EYEBOTH BEDTIME 10/21/17 [History] Metoprolol Succinate 25 mg PO DAILY #30 tab.er.24h 09/12/19 [Rx] Rivaroxaban [Xarelto] 20 mg PO DAILY #30 tablet 09/12/19 [Rx] Acetaminophen/HYDROcodone [Winfield 325-5 MG] 1 tab PO Q4H #20 tablet 02/05/20 [Rx] Citalopram Hydrobromide [Celexa] 10 mg PO DAILY 02/05/20 [History] Donepezil [Aricept] 5 mg PO BEDTIME 02/05/20 [History] Netarsudil Mesylate [Rhopressa] 1 drop EYERT DAILY 02/05/20 [History] Past Medical History HEENT History: Reports: Cataract, Glaucoma, Impaired Vision (Large diplopia and associated macular degeneration. This impairs his depth perception.) Cardiovascular History: Reports: Afib (She has a history of paroxysmal atrial fibrillation and therefore he is on Xarelto 20 mg daily.), High Cholesterol, Hypertension Other Cardiovascular History: Had hypercholesteremia but got his weight under control and no longer needed medication. Genitourinary History: Reports: BPH Musculoskeletal History: Reports: Osteoarthritis Neurological History: Reports: Alzheimers Disease Psychiatric History: Reports: Dementia - Infectious Disease History Infectious Disease History: Reports: Chicken Pox, Measles, Mumps - Past Surgical History HEENT Surgical History: Reports: Cataract Surgery, Oral Surgery, Tonsillectomy GI Surgical History: Reports: Appendectomy, Cholecystectomy Neurological Surgical History: Reports: Lumbar Spine Musculoskeletal Surgical History: Reports: Hip Replacement Other Musculoskeletal Surgeries/Procedures:: spurs taken off of back Social & Family History - Family History Family Medical History: No Pertinent Family History - Tobacco Use Tobacco Use Status *Q: Never Tobacco User - Caffeine Use Caffeine Use: Reports: Coffee - Recreational Drug Use Recreational Drug Use: No - Living Situation & Occupation Living situation: Reports: , with Spouse Occupation: Retired Review of Systems - Review of Systems Review Of Systems: See Below Constitutional: Reports: Weakness. Denies: Chills, Diaphoresis, Fever Eyes: Reports: Decreased Acuity (Chronically due to combination of macular degeneration and diplopia of unclear etiology. He doesn't report a occipital lobe infarct to his knowledge.), Glasses Ears: Reports: No Symptoms, Other Nose: Reports: No Symptoms (No blood or blood behind the tympanic membranes.) Mouth/Throat: Reports: Other (No evidence of) Respiratory: Reports: Shortness of Breath, Cough (Patient no sputum production in the mornings. Primarily cough in the morning.), Sputum. Denies: Wheezing, Pleuritic Chest Pain Cardiovascular: Reports: Chest Pain (Chest pain since falling today.), Palpitations (History of paroxysmal atrial fibrillation.). Denies: Lightheadedness GI/Abdominal: Denies: Abdominal Pain, Bloody Stool, Hematemesis Genitourinary: Reports: Other (Urinary frequency with known BPH. Nocturia usually x3.) Musculoskeletal: Reports: Back Pain, Joint Pain (He sips shoulders and neck.) Skin: Reports: No Symptoms Neurological: Reports: Confusion (Poor memory.), Dizziness ( States his knows all the answers.), Headache, Difficulty Walking, Weakness. Denies: Syncope, Tingling Psychiatric: Reports: No Symptoms ED EXAM, GENERAL - Physical Exam Exam: See Below Exam Limited By: Other General Appearance: Alert, WD/WN (Poor historian.), Moderate Distress, Other (Patient is splinting respirations. Temperature is 37.2. He does feel mildly warm to palpation particularly his anterior chest. Heart rate was 68 and regular on the monitor. Respiratory to 16 with O2 sats of 94 to 95% room air. BP 133/73.) Eye Exam: Bilateral Eye: Normal Inspection (Patient does not clinically to have a peer to have a gaze palsy.), PERRL Ears: Normal TMs (There was no blood behind either tympanic membrane on exam.) Nose: Normal Inspection Throat/Mouth: Other (No evidence of dental or tongue injury.) Head: Other (He has some tenderness to the scalp left occipital area. No hematoma evident.) Neck: Limited Range of Motion (Patient has significant limited range of motion of cervical spine with loss of 10 degrees to 15 degrees of lateral flexion. Lost to 10 degrees flexion and 10 degrees extension.), Tender Lateral ( Crepitus on examination), Tender Midline ( tender laterally as well is tender in the midline on examination. Particularly lower mid cervical spine.) Respiratory/Chest: Decreased Breath Sounds (Decreased air entry to the lower 30% lung gonzalez bilaterally.), Splinting (Splinting respirations.). No: Rhonchi, Wheezing Cardiovascular: Regular Rate, Rhythm, No Edema, No Gallop, No Murmur, No Rub, Other (History has). No: Normal Peripheral Pulses Course - Vital Signs Last Recorded V/S: Last Vital Signs Temp 36.8 C 02/05/20 12:33 Pulse 69 02/05/20 12:33 Resp 14 02/05/20 12:33 BP 119/61 02/05/20 12:33 Pulse Ox 91 L 02/05/20 12:33 - Orders/Labs/Meds Labs: Laboratory Tests 02/05/20 02/05/20 02/05/20 Range/Units 11:36 11:40 11:40 WBC 6.03 (4.23-9.07) K/mm3 RBC 4.18 L (4.63-6.08) M/mm3 Hgb 13.4 L (13.7-17.5) gm/dl Hct 39.3 L (40.1-51.0) % MCV 94.0 H (79.0-92.2) fl MCH 32.1 (25.7-32.2) pg MCHC 34.1 (32.2-35.5) g/dl RDW Std Deviation 44.8 H (35.1-43.9) fL Plt Count 166 (163-337) K/mm3 MPV 9.9 (9.4-12.3) fl Neut % (Auto) 67.0 (34.0-67.9) % Lymph % (Auto) 14.9 L (21.8-53.1) % Dale % (Auto) 14.9 H (5.3-12.2) % Eos % (Auto) 2.5 (0.8-7.0) Baso % (Auto) 0.7 (0.1-1.2) % Neut # (Auto) 4.04 (1.78-5.38) K/mm3 Lymph # (Auto) 0.90 L (1.32-3.57) K/mm3 Dale # (Auto) 0.90 H (0.30-0.82) K/mm3 Eos # (Auto) 0.15 (0.04-0.54) K/mm3 Baso # (Auto) 0.04 (0.01-0.08) K/mm3 PT (9.7-12.0) SECONDS INR APTT (21.7-31.4) SECONDS Sodium 141 (136-145) mEq/L Potassium 3.4 L (3.5-5.1) mEq/L Chloride 102 (98-107) mEq/L Carbon Dioxide 30 (21-32) mEq/L Anion Gap 12.4 (5-15) BUN 15 (7-18) mg/dL Creatinine 1.1 (0.7-1.3) mg/dL Est Cr Clr Drug Dosing 53.24 mL/min Estimated GFR (MDRD) > 60 (>60) mL/min BUN/Creatinine Ratio 13.6 L (14-18) Glucose 100 (83-115) mg/dL Calcium 8.8 (8.5-10.1) mg/dL Magnesium 1.9 (1.8-2.4) mg/dl Total Bilirubin 1.1 H (0.2-1.0) mg/dL AST 16 (15-37) U/L ALT 17 (16-63) U/L Alkaline Phosphatase 65 (46-116) U/L Troponin I 0.018 (0.00-0.056) ng/mL C-Reactive Protein 1.9 H* (<1.0) mg/dL NT-Pro-B Natriuret Pep 2390 H (0-450) pg/mL Total Protein 6.8 (6.4-8.2) g/dl Albumin 3.4 (3.4-5.0) g/dl Globulin 3.4 gm/dL Albumin/Globulin Ratio 1.0 (1-2) Urine Color (Yellow) Urine Appearance (Clear) Urine pH (5.0-8.0) Ur Specific Henry (1.005-1.030) Urine Protein (Negative) Urine Glucose (UA) (Negative) Urine Ketones (Negative) Urine Occult Blood (Negative) Urine Nitrite (Negative) Urine Bilirubin (Negative) Urine Urobilinogen (0.2-1.0) Ur Leukocyte Esterase (Negative) Urine RBC (0-5) /hpf Urine WBC (0-5) /hpf Ur Squamous Epith Cells (0-5) /hpf Urine Bacteria (FEW) /hpf Urine Mucus (FEW) /hpf SARS-CoV-2 RNA (HOWARD) (NEGATIVE) 02/05/20 02/05/20 02/05/20 Range/Units 12:05 12:15 13:28 WBC (4.23-9.07) K/mm3 RBC (4.63-6.08) M/mm3 Hgb (13.7-17.5) gm/dl Hct (40.1-51.0) % MCV (79.0-92.2) fl MCH (25.7-32.2) pg MCHC (32.2-35.5) g/dl RDW Std Deviation (35.1-43.9) fL Plt Count (163-337) K/mm3 MPV (9.4-12.3) fl Neut % (Auto) (34.0-67.9) % Lymph % (Auto) (21.8-53.1) % Dale % (Auto) (5.3-12.2) % Eos % (Auto) (0.8-7.0) Baso % (Auto) (0.1-1.2) % Neut # (Auto) (1.78-5.38) K/mm3 Lymph # (Auto) (1.32-3.57) K/mm3 Dale # (Auto) (0.30-0.82) K/mm3 Eos # (Auto) (0.04-0.54) K/mm3 Baso # (Auto) (0.01-0.08) K/mm3 PT 14.0 H (9.7-12.0) SECONDS INR 1.32 APTT 31.3 (21.7-31.4) SECONDS Sodium (136-145) mEq/L Potassium (3.5-5.1) mEq/L Chloride (98-107) mEq/L Carbon Dioxide (21-32) mEq/L Anion Gap (5-15) BUN (7-18) mg/dL Creatinine (0.7-1.3) mg/dL Est Cr Clr Drug Dosing mL/min Estimated GFR (MDRD) (>60) mL/min BUN/Creatinine Ratio (14-18) Glucose (83-115) mg/dL Calcium (8.5-10.1) mg/dL Magnesium (1.8-2.4) mg/dl Total Bilirubin (0.2-1.0) mg/dL AST (15-37) U/L ALT (16-63) U/L Alkaline Phosphatase (46-116) U/L Troponin I (0.00-0.056) ng/mL C-Reactive Protein (<1.0) mg/dL NT-Pro-B Natriuret Pep (0-450) pg/mL Total Protein (6.4-8.2) g/dl Albumin (3.4-5.0) g/dl Globulin gm/dL Albumin/Globulin Ratio (1-2) Urine Color Yellow (Yellow) Urine Appearance Clear (Clear) Urine pH 5.5 (5.0-8.0) Ur Specific Henry > or = 1.030 (1.005-1.030) Urine Protein Trace H (Negative) Urine Glucose (UA) Negative (Negative) Urine Ketones 1+ H (Negative) Urine Occult Blood Negative (Negative) Urine Nitrite Negative (Negative) Urine Bilirubin Negative (Negative) Urine Urobilinogen 0.2 (0.2-1.0) Ur Leukocyte Esterase Negative (Negative) Urine RBC 0-5 (0-5) /hpf Urine WBC 0-5 (0-5) /hpf Ur Squamous Epith Cells 0-5 (0-5) /hpf Urine Bacteria Few (FEW) /hpf Urine Mucus Few (FEW) /hpf SARS-CoV-2 RNA (HOWARD) Negative (NEGATIVE) Meds: Medications Discontinued Medications Generic Name Dose Route Start Last Admin Trade Name Freq PRN Reason Stop Dose Admin Hydromorphone HCl 0.5 mg 02/05/20 11:33 02/05/20 12:16 Dilaudid IVPUSH 02/05/20 11:34 0.5 mg ONETIME ONE Administration Sodium Chloride 1,000 mls @ 100 mls/hr 02/05/20 11:45 02/05/20 12:16 Normal Saline IV 100 mls/hr ASDIRECTED KI Administration Ondansetron HCl 4 mg 02/05/20 11:33 02/05/20 12:16 Zofran IVPUSH 02/05/20 11:34 4 mg ONETIME ONE Administration - Radiology Interpretation Free Text/Narrative:: 85-year-old male presents to the ED after suffering a fall outside the [employer] this morning.Patient has visual impairment. He states he often sees double and has depth perception problems. He states he went to put his hand up on the wall outside of the bank and missed it. Ended up falling hard on his back on the concrete sidewalk. States that knocked the wind out of him for short period of time. He does remember hitting his head on the concrete but did not lose consciousness. Of concern the patient is on Xarelto 20 mg once daily for intermittent atrial fibrillation. He is complaining of pain primarily in his anterior thorax particular ribs 9 and 10 adjacent to the lower sternum. Denies any significant pain in his left lateral ribs. He does have cervical neck pain mid thoracic back pain. Plan he will have CT head, CT cervical, thoracic, lumbar spine performed. We will also have CT of the chest performed without contrast. - Re-Assessments/Exams Free Text/Narrative Re-Assessment/Exam: 02/05/20 13:24 Hematology reveals a normal white count at 6.03. Differential shows 67% neutrophils. Hemoglobin is 13.4 with a hematocrit of 39.3. Platelet count is 166,000. PT is 14.0 with an INR of 1.32 i.e. mildly elevated. PTT is 31.3. Sodium 141 with potassium low normal at 3.4. Chloride 102 with a bicarb of 30. Anion gap is 12.4 with a BUN of 15 and a creatinine of 1.1. GFR remains greater than 60. Glucose 100 with a calcium of 8.8. Magnesium 1.9. Total bilirubin is mildly elevated at 1.1. AST is 16 with an ALT of 17 and alk phosphatase of 65. Troponin I is less than 0.018. C-reactive protein 1.9. BNP is elevated at 2390. Total protein is 6.8 albumin is normal at 3.4. Urinalysis shows trace of protein 1+ ketones negative for any signs of infection and COVID-19 screen is negative. 02/05/20 14:00: CT of the head reveals a moderate amount of decreased attenuation consistent with diffuse periventricular white matter ischemic change. No acute hemorrhage or infarct identified. There is no intracranial mass, mass-effect or midline shift or edema. There are no abnormal extra-axial fluid collections. No fractures of the skull appreciated.CT cervical spine reveals body height and alignment are well-maintained. Large flowing anterior osteophytes are present combined with diffuse idiopathic skeletal hyperostosis. No fractures are identified. Facet joints remain in anatomic alignment. C1-C2 relationship is preserved. There is no significant disc protrusion, severe spinal canal stenosis or neuroforaminal narrowing at any level. CT of the thoracic spine carried out shows mild to moderate grade degenerative changes throughout the thoracic spine.No compression fractures identified. There are flowing anterior osteophytes compared with diffuse idiopathic skeletal hyperostosis. Facet joints remain in anatomic alignment. No facet fractures appreciated. There is no significant disc protrusion, spinal severe spinal canal stenosis or neuroforaminal narrowing at any level. CT of the lumbar spine reveals mild to moderate grade degenerative changes throughout the lumbar spine with disc space narrowing and endplate osteophyte formation. No compression fractures identified. Facet joints are in anatomic alignment.There is no significant disc protrusion, severe spinal canal stenosis or significant neuroforaminal narrowing at any level. CT of the chest done without contrast reveals the lungs to appear unremarkable with no consolidation or masses. Pleural space is unremarkable with no pneumothorax no pleural effusion. Heart size is mildly prominent with diffuse mild coronary atherosclerosis evident.Aorta is unremarkable with no aortic aneurysm. Lymph nodes are normal no fractured ribs were identified or injury to the sternum on CT exam. Patient advised of the findings including a negative COVID-19 screen to account for his weakness. Plan Dean wrap to support his lower ribs. Incentive spirometer sent home with the patient to be used every 2-3 hours while awake. He will use Tylenol primarily for pain relief however Winfield tabs 07/08/2024 were also sent home with the patient.To be taken 1 or 2 tablets every 4-6 hours if needed for pain. Advised they will cause constipation and he has an issue with this already. He will stay on stool softeners on a daily basis. Advised follow-up with his primary care physician if not markedly improved in 10 to 12 days time. Departure - Departure Time of Disposition: 14:15 Disposition: Home, Self-Care 01 Condition: Fair Clinical Impression: Fall Qualifiers: Encounter type: initial encounter Qualified Code(s): W19.XXXA - Unspecified fall, initial encounter Contusion of chest wall Qualifiers: Encounter type: initial encounter Laterality: left Qualified Code(s): S20.212A - Contusion of left front wall of thorax, initial encounter - Discharge Information *PRESCRIPTION DRUG MONITORING PROGRAM REVIEWED*: Not Applicable *COPY OF PRESCRIPTION DRUG MONITORING REPORT IN PATIENT ADRIANO: Not Applicable Prescriptions: Acetaminophen/HYDROcodone [Winfield 325-5 MG] 1 tab PO Q4H #20 tablet Instructions: Contusion, [id number] Referrals: Trevor Pepper MD [Primary Care Provider] - Forms: ED Department Discharge Additional Instructions: Evaluation in the emergency room this morning in regards to a fall outside the [employer] [facility] [employer] today. Landed hard on the concrete on your back. Noted that you may have banged the back of your head as well although no loss of consciousness occurred. Due to being on Xarelto 20 mg a day which places you at high risk of bleeding internally CT scan of your head was performed which does not show any intracranial bleeding or skull fractures. CT scan of your neck mid back and low back was carried out and revealed diffuse degenerative arthritic changes throughout all levels but no significant disc herniation or entrapment of the nerve as it exits the spinal cord. No fractures were identified. Primary injury was to the chest wall particularly anterior left side adjacent to your lower breastbone or sternum. CT scan of the chest revealed heart to be mildly enlarged.But no fractures were identified in the ribs and the heart and lungs otherwise looked okay. Expect to have increased pain over the next 48 hours due to swelling inside from the fall today. May use Tylenol 650 mg every 4 hours as needed for pain relief. If Tylenol is not strong enough may use prescribed medication Winfield 5/325 mg 1 tablet every 4 to 6 hours as needed. Follow-up with personal care physician if not markedly improved in 10 days time. Suggest using a spirometer at home to make sure that you inflate your lower lungs and prevent pneumonia from occurring. Suggest using it once every 2-3 hours while awake. Dean wrap may be used around her lower ribs for comfort until feeling better. Sepsis Event Note (ED) - Evaluation Sepsis Screening Result: No Definite Risk - Focused Exam Vital Signs: Vital Signs Temp Pulse Resp BP Pulse Ox 02/05/20 12:33 36.8 C 69 14 119/61 91 L 02/05/20 11:23 37.2 C 68 16 133/73 95
[2020-02-05 12:34] VITALS: BP 119/61; PULSE 69
--- NOTE | 2020-02-05 14:18 | CT ---
PROCEDURE INFORMATION: Exam: CT Cervical Spine Without Contrast Exam date and time: 02/05/2020 11:54 AM Age: 85 years old Clinical indication: Patient HX: Patient fell and hit head, complaining of neck pain TECHNIQUE: Imaging protocol: Computed tomography images of the cervical spine without contrast. COMPARISON: CT Cervical Spine wo Cont 11/12/2013 7:55 PM FINDINGS: Vertebrae: Cervical vertebral body height and alignment are well maintained. Large flowing anterior osteophytes are present compatible with diffuse idiopathic skeletal hyperostosis. No fractures are identified. Facet joints remain in anatomic alignment. C1-C2 relationship is well preserved. C2-C3: No significant disc protrusion. No severe spinal canal stenosis. No significant neural foraminal narrowing. C3-C4: No significant disc protrusion. No severe spinal canal stenosis. No significant neural foraminal narrowing. C4-C5: No significant disc protrusion. No severe spinal canal stenosis. No significant neural foraminal narrowing. C5-C6: No significant disc protrusion. No severe spinal canal stenosis. No significant neural foraminal narrowing. C6-C7: No significant disc protrusion. No severe spinal canal stenosis. No significant neural foraminal narrowing. C7-T1: No significant disc protrusion. No severe spinal canal stenosis. No significant neural foraminal narrowing. Soft tissues: Unremarkable. Lungs: Lung apices are normal. IMPRESSION: 1. Degenerative change and diffuse idiopathic skeletal hyperostosis. No acute fracture or subluxation present. Thank you for allowing us to participate in the care of your patient. Dictated and Authenticated by: Paul Lehman MD 02/05/2020 1:34 PM Central Time ([place] & [place]) RAVI
--- NOTE | 2020-02-05 14:19 | CT ---
PROCEDURE INFORMATION: Exam: CT Head Without Contrast Exam date and time: 02/05/2020 11:54 AM Age: 85 years old Clinical indication: Pain; Other: Fell and hit head TECHNIQUE: Imaging protocol: Computed tomography of the head without contrast. COMPARISON: CT Cervical Spine wo Cont 11/12/2013 7:55 PM FINDINGS: Brain: A mild amount of decreased attenuation is present within the periventricular white matter. Finding is nonspecific but most often seen in chronic small-vessel ischemic change. No acute hemorrhage or infarct identified. There is no intracranial mass, mass effect, midline shift or edema. There are no abnormal extra-axial fluid collections. Cerebral ventricles: The ventricles and sulci are mildly prominent consistent with global volume loss/atrophy. Bones/joints: Unremarkable. No acute fracture. Paranasal sinuses: Visualized sinuses are unremarkable. No fluid levels. Mastoid air cells: Visualized mastoid air cells are well aerated. Soft tissues: Unremarkable. IMPRESSION: 1. Atrophy and nonspecific chronic white matter change. No acute intracranial injury present. Thank you for allowing us to participate in the care of your patient. Dictated and Authenticated by: Paul Lehman MD 02/05/2020 1:33 PM Central Time ([place] & [place]) RAVI
--- NOTE | 2020-02-05 14:19 | CT ---
PROCEDURE INFORMATION: Exam: CT Chest Without Contrast; Diagnostic Exam date and time: 02/05/2020 11:54 AM Age: 85 years old Clinical indication: Chest pain; Patient HX: Patient fell and complaining of rib pain TECHNIQUE: Imaging protocol: Diagnostic computed tomography of the chest without contrast. COMPARISON: CR Chest 1V Frontal 09/27/2019 4:47 PM FINDINGS: Lungs: Unremarkable. No consolidation. No masses. Pleural space: Unremarkable. No pneumothorax. No pleural effusion. Heart: Heart size is mildly prominent with mild coronary atherosclerosis noted. Aorta: Unremarkable. No aortic aneurysm. Lymph nodes: Unremarkable. No enlarged lymph nodes. Bones/joints: Unremarkable. No acute fracture. Soft tissues: Unremarkable. IMPRESSION: 1. No acute intrathoracic injury identified. 2. Mild cardiomegaly and coronary atherosclerosis. Thank you for allowing us to participate in the care of your patient. Dictated and Authenticated by: Paul Lehman MD 02/05/2020 1:38 PM Central Time ([place] & [place]) RAVI
--- NOTE | 2020-02-05 14:21 | CT ---
PROCEDURE INFORMATION: Exam: CT Lumbar Spine Without Contrast Exam date and time: 02/05/2020 11:54 AM Age: 85 years old Clinical indication: Low back pain; Patient HX: Fell outside, back PX TECHNIQUE: Imaging protocol: Computed tomography images of the lumbar spine without contrast. COMPARISON: MR Lumbar Spine Comp wo Cont 06/25/2014 2:55 PM FINDINGS: Vertebrae: [id number] grade degenerative changes are present within the lumbar spine with disc space narrowing and endplate osteophyte formation. No compression fractures identified. Facet joints are in anatomic alignment. L1-L2: No significant disc protrusion. No severe spinal canal stenosis. No significant neural foraminal narrowing. L2-L3: No significant disc protrusion. No spinal canal stenosis. No neural foraminal narrowing. L3-L4: No significant disc protrusion. No severe spinal canal stenosis. No significant neural foraminal narrowing. L4-L5: No significant disc protrusion. No severe spinal canal stenosis. No significant neural foraminal narrowing. L5-S1: No significant disc protrusion. No severe spinal canal stenosis. No significant neural foraminal narrowing. Soft tissues: Unremarkable. IMPRESSION: 1. Moderate grade degenerative change. No acute fracture or subluxation present. Thank you for allowing us to participate in the care of your patient. Dictated and Authenticated by: Paul Lehman MD 02/05/2020 1:43 PM Central Time ([place] & [place]) [facility]
--- NOTE | 2020-02-05 14:22 | CT ---
PROCEDURE INFORMATION: Exam: CT Thoracic Spine Without Contrast Exam date and time: 02/05/2020 11:54 AM Age: 85 years old Clinical indication: Pain in thoracic spine; Patient HX: Patient fell complaining of back/rib px TECHNIQUE: Imaging protocol: Computed tomography images of the thoracic spine without contrast. COMPARISON: No relevant prior studies available. FINDINGS: Vertebrae: Moderate grade degenerative changes are present within the thoracic spine. No compression fracture is identified. There are flowing anterior osteophytes compatible with diffuse idiopathic skeletal hyperostosis. Facet joints remain in anatomic alignment. No facet fracture present. T1-T2: No significant disc protrusion. No severe spinal canal stenosis. No significant neural foraminal narrowing. T2-T3: No significant disc protrusion. No severe spinal canal stenosis. No significant neural foraminal narrowing. T3-T4: No significant disc protrusion. No severe spinal canal stenosis. No significant neural foraminal narrowing. T4-T5: No significant disc protrusion. No severe spinal canal stenosis. No significant neural foraminal narrowing. T5-T6: No significant disc protrusion. No severe spinal canal stenosis. No significant neural foraminal narrowing. T6-T7: No significant disc protrusion. No severe spinal canal stenosis. No significant neural foraminal narrowing. T7-T8: No significant disc protrusion. No severe spinal canal stenosis. No significant neural foraminal narrowing. T8-T9: No significant disc protrusion. No severe spinal canal stenosis. No significant neural foraminal narrowing. T9-T10: No significant disc protrusion. No severe spinal canal stenosis. No significant neural foraminal narrowing. T10-T11: No significant disc protrusion. No severe spinal canal stenosis. No significant neural foraminal narrowing. T11-T12: No significant disc protrusion. No severe spinal canal stenosis. No significant neural foraminal narrowing. T12-L1: No significant disc protrusion. No severe spinal canal stenosis. No significant neural foraminal narrowing. IMPRESSION: 1. Degenerative change without acute thoracic spine injury or subluxation present. Thank you for allowing us to participate in the care of your patient. Dictated and Authenticated by: Paul Lehman MD 02/05/2020 1:40 PM Central Time ([place] & [place]) [facility]
== END 2020-02-05 14:43 | disposition home or self-care (01) ==
LOC: JD.ED 11:01
DX: S20.212A Contusion of left front wall of thorax, initial encounter (principal); N40.0 Benign prostatic hyperplasia without lower urinary tract symptoms; I48.91 Unspecified atrial fibrillation; I10 Essential (primary) hypertension; G30.9 Alzheimer's disease, unspecified; F02.80 Dementia in other diseases classified elsewhere, unspecified severity, without behavioral disturbance, psychotic disturbance, mood disturbance, and anxiety; Z91.018 Allergy to other foods; Z79.01 Long term (current) use of anticoagulants; Z79.899 Other long term (current) drug therapy; Z20.828 Contact with and (suspected) exposure to other viral communicable diseases; W10.1XXA Fall (on)(from) sidewalk curb, initial encounter
CPT/HCPCS: 36415; 70450; 71250; 72125; 72128; 72131; 80053; 81001; 83735; 83880; 84484; 85025; 85610; 85730; 86140; 93005; 96374; 96375; 99284; J1170; J2405; J7030; U0002; 93010

== ENCOUNTER 2021-01-02 00:10 | Emergency (ER) | payer MEDICARE, BC ==
[2021-01-02 00:37] VITALS: BP 143/62; PULSE 73
--- NOTE | 2021-01-02 01:05 | EDM.PDOC ---
ED HPI GENERAL MEDICAL PROBLEM - General Chief Complaint: Chest Pain Stated Complaint: UPPER ABDOMINAL/CHEST/LEFT ARM PAIN Time Seen by Provider: 01/02/21 00:59 - History of Present Illness INITIAL COMMENTS - FREE TEXT/NARRATIVE: 85-year-old male presents the emergency room with some upper abdominal pain and some chest concerns. Shortly before arrival patient had some upper abdominal discomfort. Patient has had a history of going into [employer] when he has gotten upset in the past and the was concerned that maybe that is what was going on. Gentleman does have some dementia but he is pleasant at this time and answers q uestions reasonably well. At this moment he denies any pain or concerns he has no breathing difficulties chest pain or shortness of breath. Apparently the patient and his ate at [employer] this evening and they wonder if maybe this caused some brief stomach upset for him. The patient had to be awoken after he fell asleep to take some medications that he became upset which may have triggered everything. He has not had any diarrhea nausea or vomiting or difficulty voiding Chest Pain Score (Numeric/FACES): 2 - Related Data Allergies Allergy/AdvReac Type Severity Reaction Status Date / Time Fish Containing Products Allergy Severe Airway Verified 01/02/21 00:37 Tightness fish derived Allergy Severe Airway Verified 01/02/21 00:37 Tightness fish oil Allergy Severe Airway Verified 01/02/21 00:37 Tightness fish Allergy Severe Airway Uncoded 01/02/21 00:37 Tightness Home Meds: Home Meds Finasteride [Proscar] 5 mg PO DAILY 11/12/13 [History] Tamsulosin [Flomax] 0.4 mg PO BEDTIME 11/12/13 [History] hydroCHLOROthiazide [Hydrochlorothiazide] 12.5 mg PO DAILY 11/12/13 [History] Latanoprost/Pf [Latanoprost 0.005% Eye Drop] 1 drop EYEBOTH BEDTIME 10/21/17 [History] Metoprolol Succinate 25 mg PO DAILY #30 tab.er.24h 09/12/19 [Rx] Rivaroxaban [Xarelto] 20 mg PO DAILY #30 tablet 09/12/19 [Rx] Acetaminophen/HYDROcodone [[place] 325-5 MG] 1 tab PO Q4H #20 tablet 02/05/20 [Rx] Citalopram Hydrobromide [Celexa] 10 mg PO DAILY 02/05/20 [History] Donepezil [Aricept] 5 mg PO BEDTIME 02/05/20 [History] Netarsudil Mesylate [Rhopressa] 1 drop EYERT DAILY 02/05/20 [History] Past Medical History HEENT History: Reports: Cataract, Glaucoma, Impaired Vision (Large diplopia and associated macular degeneration. This impairs his depth perception.) Cardiovascular History: Reports: Afib (She has a history of paroxysmal atrial fibrillation and therefore he is on Xarelto 20 mg daily.), High Cholesterol, Hypertension Other Cardiovascular History: Had hypercholesteremia but got his weight under control and no longer needed medication. Genitourinary History: Reports: BPH Musculoskeletal History: Reports: Osteoarthritis Neurological History: Reports: Alzheimers Disease Psychiatric History: Reports: Dementia - Infectious Disease History Infectious Disease History: Reports: Chicken Pox, Measles, Mumps - Past Surgical History HEENT Surgical History: Reports: Cataract Surgery, Oral Surgery, Tonsillectomy GI Surgical History: Reports: Appendectomy, Cholecystectomy Neurological Surgical History: Reports: Lumbar Spine Musculoskeletal Surgical History: Reports: Hip Replacement Other Musculoskeletal Surgeries/Procedures:: spurs taken off of back Social & Family History - Family History Family Medical History: No Pertinent Family History - Caffeine Use Caffeine Use: Reports: Coffee - Living Situation & Occupation Living situation: Reports: , with Spouse Occupation: Retired ED ROS GENERAL - Review of Systems Review Of Systems: See Below Constitutional: Reports: No Symptoms HEENT: Reports: No Symptoms Respiratory: Reports: No Symptoms Cardiovascular: Reports: No Symptoms Endocrine: Reports: No Symptoms, Polyuria GI/Abdominal: Reports: Abdominal Pain (He had some stomach upset that has already resolved) : Reports: No Symptoms Musculoskeletal: Reports: No Symptoms Skin: Reports: No Symptoms ED EXAM, GENERAL - Physical Exam Exam: See Below Exam Limited By: No Limitations General Appearance: Alert, No Apparent Distress Head: Atraumatic, Normocephalic Neck: Normal Inspection, Supple, Non-Tender, Full Range of Motion Respiratory/Chest: No Respiratory Distress, Lungs Clear, Normal Breath Sounds Cardiovascular: Regular Rate, Rhythm, No Edema, No Murmur GI/Abdominal: Normal Bowel Sounds, Soft, Non-Tender Back Exam: Normal Inspection. No: CVA Tenderness (L), CVA Tenderness (R) Extremities: Normal Inspection Skin Exam: Warm, Dry, Intact Course - Vital Signs Last Recorded V/S: Last Vital Signs Temp 36.0 C L 01/02/21 00:29 Pulse 73 01/02/21 00:29 Resp 22 H 01/02/21 00:29 BP 143/62 H 01/02/21 00:29 Pulse Ox 95 01/02/21 00:29 - Re-Assessments/Exams Free Text/Narrative Re-Assessment/Exam: 01/02/21 01:08 The patient is doing well at this time there is no changes on his EKG. Offered to do blood work and further evaluation however the patient think he is okay to go home. We will discharge at this time Departure - Departure Time of Disposition: 01:09 Disposition: Home, Self-Care 01 Clinical Impression: Upset stomach - Discharge Information Referrals: Trevor Pepper MD [Primary Care Provider] - Additional Instructions: Return to the emergency room with any questions problems or worsening symptoms. Follow-up with your regular healthcare provider as needed and as scheduled. Sepsis Event Note (ED) - Focused Exam Vital Signs: Vital Signs Temp Pulse Resp BP Pulse Ox 01/02/21 00:29 36.0 C L 73 22 H 143/62 H 95
== END 2021-01-02 01:38 | disposition home or self-care (01) ==
LOC: JD.ED 00:10
DX: R10.10 Upper abdominal pain, unspecified (principal); I48.0 Paroxysmal atrial fibrillation; E78.00 Pure hypercholesterolemia, unspecified; I10 Essential (primary) hypertension; M19.90 Unspecified osteoarthritis, unspecified site; N40.0 Benign prostatic hyperplasia without lower urinary tract symptoms; Z91.013 Allergy to seafood; Z79.01 Long term (current) use of anticoagulants; Z79.899 Other long term (current) drug therapy
CPT/HCPCS: 93005; 99284-25

== ENCOUNTER 2021-03-03 17:33 | Observation (INO) | payer MEDICARE, BC ==
[2021-03-03] MEDS ORDERED: Lactated Ringers 1,000 ML IV ONE (19:28)
[2021-03-03 19:35] LABS: CORONAVIRUS COVID-19 NAA NEGATIVE (NEGATIVE)
--- NOTE | 2021-03-03 20:22 | EDM.PDOC ---
ED HPI GENERAL MEDICAL PROBLEM - General Chief Complaint: General Stated Complaint: FAINT, WEAKNESS Time Seen by Provider: 03/03/21 20:19 Source of Information: Reports: Patient History Limitations: Reports: No Limitations - History of Present Illness INITIAL COMMENTS - FREE TEXT/NARRATIVE: Patient is an 86-year-old male presented to the emergency room with a chief complaint of weakness. Patient states the weakness occurred and started this evening. He reports feeling weak in his legs and barely able to walk. He states this morning, he shoveled snow for about 30 minutes and reports no chest pain, lightheadedness, shortness of breath with this. He went to play cards with friends and after leaving where he started feeling weak. He states that he has no pain anywhere. He states he maybe felt a little lightheaded but denies any palpitations. His is present with him and states that he does not drink enough water. He also did not eat very much today and only had a bowl of cereal for breakfast. Otherwise, has not been sick recently. Not experiencing any vomiting or diarrhea. - Related Data Allergies Allergy/AdvReac Type Severity Reaction Status Date / Time Fish Containing Products Allergy Severe Airway Verified 03/04/21 01:38 Tightness fish derived Allergy Severe Airway Verified 03/04/21 01:38 Tightness fish oil Allergy Severe Airway Verified 03/04/21 01:38 Tightness fish Allergy Severe Airway Uncoded 03/03/21 21:39 Tightness Home Meds: Home Meds Finasteride [Proscar] 5 mg PO DAILY 11/12/13 [History] Tamsulosin [Flomax] 0.4 mg PO BEDTIME 11/12/13 [History] hydroCHLOROthiazide [Hydrochlorothiazide] 12.5 mg PO DAILY 11/12/13 [History] Metoprolol Succinate 25 mg PO DAILY #30 tab.er.24h 09/12/19 [Rx] Rivaroxaban [Xarelto] 20 mg PO DAILY #30 tablet 09/12/19 [Rx] Citalopram Hydrobromide [Celexa] 10 mg PO DAILY 02/05/20 [History] Donepezil [Aricept] 5 mg PO BEDTIME 02/05/20 [History] Brimonidine Tartrate [Brimonidine Tartrate 0.2% Ophth Soln] 1 drop EYEBOTH ASDIRECTED 03/03/21 [History] Triamcinolone Acetonide [Kenalog 0.1% Crm] 1 applic TOP ASDIRECTED 03/03/21 [History] Past Medical History HEENT History: Reports: Cataract, Glaucoma, Impaired Vision Cardiovascular History: Reports: Afib, High Cholesterol, Hypertension Other Cardiovascular History: Had hypercholesteremia but got his weight under control and no longer needed medication. Genitourinary History: Reports: BPH Musculoskeletal History: Reports: Osteoarthritis Neurological History: Reports: Alzheimers Disease Psychiatric History: Reports: Dementia - Infectious Disease History Infectious Disease History: Reports: Chicken Pox, Measles, Mumps - Past Surgical History HEENT Surgical History: Reports: Cataract Surgery, Oral Surgery, Tonsillectomy GI Surgical History: Reports: Appendectomy, Cholecystectomy Neurological Surgical History: Reports: Lumbar Spine Musculoskeletal Surgical History: Reports: Hip Replacement Other Musculoskeletal Surgeries/Procedures:: spurs taken off of back Social & Family History - Family History Family Medical History: No Pertinent Family History - Tobacco Use Tobacco Use Status *Q: Former Tobacco User Used Tobacco, but Quit: Yes Month/Year Tobacco Last Used: 03/1979 - Caffeine Use Caffeine Use: Reports: Coffee, Soda - Recreational Drug Use Recreational Drug Use: No - Living Situation & Occupation Living situation: Reports: , with Spouse Occupation: Retired ED ROS GENERAL - Review of Systems Review Of Systems: See Below Free Text/Narrative/Comment: In addition to that documented in the HPI above, the additional ROS was obtained: Constitutional: Denies fevers or chills Eyes: Denies vision changes ENMT: Denies sore throat CV: Denies chest pain Resp: Denies SOB GI: Denies vomiting or diarrhea : Denies painful urination MSK: Denies recent trauma Skin: Denies new rashes Neuro: Denies new numbness or tingling or weakness Endocrine: Denies unexpected weight loss Heme: Denies bleeding disorders ED EXAM, GENERAL - Physical Exam Exam: See Below Free Text/Narrative:: I have reviewed the triage vital signs Const: Well nourished, well developed, appears stated age Eyes: Pupils Equal and reactive to light bilaterally, no conjunctival injection HENT: No signs of trauma or swelling, Neck supple without meningismus CV: Regular Rate Rhythm, Warm, well-perfused extremities RESP: Unlabored respiratory effort GI: soft, non-tender, non-distended, no masses MSK: No gross deformities appreciated Skin: Warm, dry. No rashes Neuro: Alert, family worker II-XII grossly intact. Sensation and motor function of extremities grossly intact. Psych: Appropriate mood and affect. #1 Interpretation EKG Date: 03/03/21 Time: 19:44 Rhythm: NSR Rate (Beats/Min): 49 [place]: RAD-Right [place] Deviation P-Wave: Present QRS: RBBB ST-T: Normal QT: Normal Comparison: No Change EKG Interpretation Comments: Abnormal EKG Course - Vital Signs Last Recorded V/S: Last Vital Signs Temp 36.4 C 03/04/21 02:42 Pulse 55 L 03/04/21 02:42 Resp 17 03/04/21 02:42 BP 136/80 03/04/21 02:42 Pulse Ox 97 03/04/21 02:42 - Orders/Labs/Meds Orders: Active Orders 24 hr Category Date Time Status Head wo Cont [CT] Stat Exams 03/03/21 21:11 Taken Brimonidine Tartrate Med 03/03/21 23:00 Pending 1 drop EYEBOTH ASDIRECTED Citalopram [Celexa] Med 03/04/21 09:00 Active 10 mg PO DAILY Donepezil [Aricept] Med 03/04/21 21:00 Active 5 mg PO BEDTIME Finasteride [Proscar] Med 03/04/21 09:00 Active 5 mg PO DAILY Metoprolol Succinate [Toprol XL] Med 03/04/21 09:00 Active 25 mg PO DAILY Rivaroxaban [Xarelto] Med 03/04/21 09:00 Active 20 mg PO DAILY Tamsulosin [Flomax] Med 03/04/21 21:00 Active 0.4 mg PO BEDTIME Triamcinolone Acetonide Med 03/03/21 23:00 Pending 1 applic TOP ASDIRECTED Medication Orders Acetaminophen (Acetaminophen 325 Mg Tab) 650 mg PO Q6H PRN PRN Reason: Pain (Mild 1-3)/fever Albuterol/Ipratropium (Albuterol/Ipratropium 3.0-0.5 Mg/3 Ml Neb Soln) 3 ml NEB Q4H PRN PRN Reason: Shortness Of Breath/wheezing Amlodipine Besylate (Amlodipine 5 Mg Tab) 2.5 mg PO DAILY KI Last Admin: 03/03/21 23:43 Dose: 2.5 mg Documented by: WAIDMIC Aspirin (Aspirin 81 Mg Tab.Ec) 81 mg PO DAILY [facility] Last Admin: 03/03/21 23:43 Dose: 81 mg Documented by: WAIDMIC Atorvastatin Calcium (Atorvastatin 40 Mg Tab) 40 mg PO BEDTIME [facility] Citalopram Hydrobromide (Citalopram 10 Mg Tab) 10 mg PO DAILY [facility] Donepezil HCl (Donepezil 10 Mg Tab) 5 mg PO BEDTIME [facility] Finasteride (Finasteride 5 Mg Tab) 5 mg PO DAILY [facility] Hydralazine HCl (Hydralazine 20 Mg/Ml Sdv) 10 mg IVPUSH Q4H PRN PRN Reason: Hypertension Lactated Ringer's (Ringers, Lactated) 1,000 mls @ 65 mls/hr IV ASDIRECTED [facility] Last Admin: 03/03/21 23:45 Dose: 65 mls/hr Documented by: WAIDMIC Metoprolol Succinate (Metoprolol Succinate 25 Mg Tab.Er) 25 mg PO DAILY [facility] Morphine Sulfate (Morphine 2 Mg/Ml Syringe) 2 mg IVPUSH Q4H PRN PRN Reason: Pain (severe 7-10) Stop: 03/04/21 23:01 Non-Formulary Medication (Brimonidine Tartrate) 1 drop EYEBOTH ASDIRECTED [facility] Non-Formulary Medication (Triamcinolone Acetonide) 1 applic TOP ASDIRECTED [facility] Ondansetron HCl (Ondansetron 4 Mg/2 Ml Sdv) 4 mg IV Q6H PRN PRN Reason: Nausea/Vomiting Oxycodone HCl (Oxycodone 5 Mg Tab) 5 mg PO Q4H PRN PRN Reason: Pain (moderate 4-6) Rivaroxaban (Rivaroxaban 10 Mg Tab) 20 mg PO DAILY [facility] Tamsulosin HCl (Tamsulosin 0.4 Mg Cap.Er) 0.4 mg PO BEDTIME [facility] Labs: Laboratory Tests 03/03/21 03/03/21 03/03/21 Range/Units 18:47 19:40 19:40 WBC 6.13 (4.23-9.07) K/mm3 RBC 3.73 L (4.63-6.08) M/mm3 Hgb 11.4 L D (13.7-17.5) gm/dl Hct 35.8 L (40.1-51.0) % MCV 96.0 H (79.0-92.2) fl MCH 30.6 (25.7-32.2) pg MCHC 31.8 L (32.2-35.5) g/dl RDW Std Deviation 48.2 H (35.1-43.9) fL Plt Count 179 (163-337) K/mm3 MPV 9.7 (9.4-12.3) fl Neut % (Auto) 60.6 (34.0-67.9) % Lymph % (Auto) 24.6 (21.8-53.1) % [place] % (Auto) 10.0 (5.3-12.2) % Eos % (Auto) 4.1 (0.8-7.0) Baso % (Auto) 0.5 (0.1-1.2) % Neut # (Auto) 3.72 (1.78-5.38) K/mm3 Lymph # (Auto) 1.51 (1.32-3.57) K/mm3 [place] # (Auto) 0.61 (0.30-0.82) K/mm3 Eos # (Auto) 0.25 (0.04-0.54) K/mm3 Baso # (Auto) 0.03 (0.01-0.08) K/mm3 Sodium 143 (136-145) mEq/L Potassium 3.9 (3.5-5.1) mEq/L Chloride 104 (98-107) mEq/L Carbon Dioxide 32 (21-32) mEq/L Anion Gap 10.9 (5-15) BUN 18 (7-18) mg/dL Creatinine 0.8 (0.7-1.3) mg/dL Est Cr Clr Drug Dosing 74.10 mL/min Estimated GFR (MDRD) > 60 (>60) mL/min BUN/Creatinine Ratio 22.5 H (14-18) Glucose 111 H (70-99) mg/dL Calcium 8.1 L (8.5-10.1) mg/dL Total Bilirubin 1.4 H (0.2-1.0) mg/dL AST 16 (15-37) U/L ALT 20 (16-63) U/L Alkaline Phosphatase 61 (46-116) U/L Troponin I < 0.017 (0.00-0.056) ng/mL Total Protein 6.2 L (6.4-8.2) g/dl Albumin 3.2 L (3.4-5.0) g/dl Globulin 3.0 gm/dL Albumin/Globulin Ratio 1.1 (1-2) Vitamin B12 (193-986) pg/ml Folate (8.6-58.9) ng/mL Urine Color (Yellow) Urine Appearance (Clear) Urine pH (5.0-8.0) Ur Specific [place] (1.005-1.030) Urine Protein (Negative) Urine Glucose (UA) (Negative) Urine Ketones (Negative) Urine Occult Blood (Negative) Urine Nitrite (Negative) Urine Bilirubin (Negative) Urine Urobilinogen (0.2-1.0) Ur Leukocyte Esterase (Negative) Influenza Type A RNA Negative (NEGATIVE) Influenza Type B RNA Negative (NEGATIVE) SARS-CoV-2 RNA (HOWARD) Negative (NEGATIVE) 03/03/21 03/03/21 Range/Units 19:40 19:42 WBC (4.23-9.07) K/mm3 RBC (4.63-6.08) M/mm3 Hgb (13.7-17.5) gm/dl Hct (40.1-51.0) % MCV (79.0-92.2) fl MCH (25.7-32.2) pg MCHC (32.2-35.5) g/dl RDW Std Deviation (35.1-43.9) fL Plt Count (163-337) K/mm3 MPV (9.4-12.3) fl Neut % (Auto) (34.0-67.9) % Lymph % (Auto) (21.8-53.1) % [place] % (Auto) (5.3-12.2) % Eos % (Auto) (0.8-7.0) Baso % (Auto) (0.1-1.2) % Neut # (Auto) (1.78-5.38) K/mm3 Lymph # (Auto) (1.32-3.57) K/mm3 [place] # (Auto) (0.30-0.82) K/mm3 Eos # (Auto) (0.04-0.54) K/mm3 Baso # (Auto) (0.01-0.08) K/mm3 Sodium (136-145) mEq/L Potassium (3.5-5.1) mEq/L Chloride (98-107) mEq/L Carbon Dioxide (21-32) mEq/L Anion Gap (5-15) BUN (7-18) mg/dL Creatinine (0.7-1.3) mg/dL Est Cr Clr Drug Dosing mL/min Estimated GFR (MDRD) (>60) mL/min BUN/Creatinine Ratio (14-18) Glucose (70-99) mg/dL Calcium (8.5-10.1) mg/dL Total Bilirubin (0.2-1.0) mg/dL AST (15-37) U/L ALT (16-63) U/L Alkaline Phosphatase (46-116) U/L Troponin I (0.00-0.056) ng/mL Total Protein (6.4-8.2) g/dl Albumin (3.4-5.0) g/dl Globulin gm/dL Albumin/Globulin Ratio (1-2) Vitamin B12 326 (193-986) pg/ml Folate 13.8 (8.6-58.9) ng/mL Urine Color Yellow (Yellow) Urine Appearance Clear (Clear) Urine pH 7.0 (5.0-8.0) Ur Specific [place] 1.020 (1.005-1.030) Urine Protein Negative (Negative) Urine Glucose (UA) Negative (Negative) Urine Ketones Negative (Negative) Urine Occult Blood Negative (Negative) Urine Nitrite Negative (Negative) Urine Bilirubin Negative (Negative) Urine Urobilinogen 2.0 H (0.2-1.0) Ur Leukocyte Esterase Negative (Negative) Influenza Type A RNA (NEGATIVE) Influenza Type B RNA (NEGATIVE) SARS-CoV-2 RNA (HOWARD) (NEGATIVE) Meds: Medications Generic Name Dose Route Start Last Admin Trade Name Freq PRN Reason Stop Dose Admin Acetaminophen 650 mg 03/03/21 22:57 Acetaminophen 325 Mg Tab PO Q6H PRN Pain (Mild 1-3)/fever Albuterol/Ipratropium 3 ml 03/03/21 22:57 Albuterol/Ipratropium 3.0-0.5 Mg/3 Ml Neb Soln NEB Q4H PRN Shortness Of Breath/wheezing Amlodipine Besylate 2.5 mg 03/03/21 23:15 03/03/21 23:43 Amlodipine 5 Mg Tab PO 2.5 mg DAILY KI Administration Aspirin 81 mg 03/03/21 23:15 03/03/21 23:43 Aspirin 81 Mg Tab.Ec PO 81 mg DAILY KI Administration Atorvastatin Calcium 40 mg 03/04/21 21:00 Atorvastatin 40 Mg Tab PO BEDTIME [facility] Citalopram Hydrobromide 10 mg 03/04/21 09:00 Citalopram 10 Mg Tab PO DAILY [facility] Donepezil HCl 5 mg 03/04/21 21:00 Donepezil 10 Mg Tab PO BEDTIME KI Finasteride 5 mg 03/04/21 09:00 Finasteride 5 Mg Tab PO DAILY [facility] Hydralazine HCl 10 mg 03/03/21 23:09 Hydralazine 20 Mg/Ml Sdv IVPUSH Q4H PRN Hypertension Lactated Ringer's 1,000 mls @ 65 mls/hr 03/03/21 23:00 03/03/21 23:45 Ringers, Lactated IV 65 mls/hr ASDIRECTED [facility] Administration Metoprolol Succinate 25 mg 03/04/21 09:00 Metoprolol Succinate 25 Mg Tab.Er PO DAILY [facility] Morphine Sulfate 2 mg 03/03/21 22:57 Morphine 2 Mg/Ml Syringe IVPUSH 03/04/21 23:01 Q4H PRN Pain (severe 7-10) Non-Formulary Medication 1 drop 03/03/21 23:00 Brimonidine Tartrate EYEBOTH ASDIRECTED [facility] Non-Formulary Medication 1 applic 03/03/21 23:00 Triamcinolone Acetonide TOP ASDIRECTED [facility] Ondansetron HCl 4 mg 03/03/21 22:57 Ondansetron 4 Mg/2 Ml Sdv IV Q6H PRN Nausea/Vomiting Oxycodone HCl 5 mg 03/03/21 22:57 Oxycodone 5 Mg Tab PO Q4H PRN Pain (moderate 4-6) Rivaroxaban 20 mg 03/04/21 09:00 Rivaroxaban 10 Mg Tab PO DAILY [facility] Tamsulosin HCl 0.4 mg 03/04/21 21:00 Tamsulosin 0.4 Mg Cap.Er PO BEDTIME KI Discontinued Medications Generic Name Dose Route Start Last Admin Trade Name Freq PRN Reason Stop Dose Admin Lactated Ringer's 1,000 mls @ 1,000 mls/hr 03/03/21 19:28 03/03/21 20:00 Ringers, Lactated IV 03/03/21 20:27 1,000 mls/hr .BOLUS ONE Administration Departure - Departure Time of Disposition: 22:00 Disposition: Admitted As Inpatient 67 Clinical Impression: Unsteady gait, Ataxia - Discharge Information Sepsis Event Note (ED) - Focused Exam Vital Signs: Vital Signs Temp Pulse Resp BP Pulse Ox 03/03/21 18:30 36.4 C 56 L 20 172/82 H 100 - My Orders Last 24 Hours: My Active Orders 03/03/21 21:11 Head wo Cont [CT] Stat - Assessment/Plan Last 24 Hours: My Active Orders 03/03/21 21:11 Head wo Cont [CT] Stat Assessment:: Patient 86-year-old male presenting to the emergency room with difficulty ambulating and unsteady gait. His work-up in the emergency room was entirely unremarkable. His neuro exam demonstrates a NIH stroke scale of 0. However, on ambulation, he was extremely unsteady on his feet. His laboratory studies and CT scan were unremarkable. At this point, I do believe patient needs admission to the hospital for MRI and PT OT evaluation. There is not appear to be e vidence of presyncope or syncope. No indication for emergent TPA administration. Patient was informed of this and is in agreement with this plan. Discussed this case with Dr. Marte who agreed accept patient for inpatient admission.
[2021-03-03] MEDS ORDERED: Albuterol/Ipratropium 3.0-0.5 MG/3 ML Neb Soln NEB PRN (22:57)
[2021-03-03] MEDS ORDERED: oxyCODONE 5 MG Tab PO PRN (22:57)
[2021-03-03] MEDS ORDERED: Ondansetron 4 MG/2 ML SDV IV PRN (22:57)
[2021-03-03] MEDS ORDERED: Morphine 2 MG/ML SYRINGE IVPUSH PRN (22:57)
[2021-03-03] MEDS ORDERED: Acetaminophen 325 MG Tab PO PRN (22:57)
[2021-03-03] MEDS ORDERED: Non-Formulary Medication 1 Each (Triamcinolone Acetonide 80 GM Tube) TOP SCH (23:00)
[2021-03-03] MEDS ORDERED: BRIMONIDINE TARTRATE EYEBOTH SCH (23:00)
[2021-03-03] MEDS ORDERED: Lactated Ringers 1,000 ML IV SCH (23:00)
[2021-03-03] MEDS ORDERED: hydrALAZINE 20 MG/ML SDV IVPUSH PRN (23:09)
--- NOTE | 2021-03-03 23:20 | PCM.HP.2 ---
H&P History of Present Illness - General Date of Service: 03/03/21 Admit Problem/Dx: Admission Diagnosis/Problem Admission Diagnosis/Problem Lightheadedness Source of Information: Patient, Provider - History of Present Illness Initial Comments - Free Text/Narative: Pt is an 86 year old male with a hx of HTN who was brought to the ER due to weakness of legs and lightheadedness. As per pt and ER provider, pt started to feel weak in his both legs this evening, causing difficulty walking. He also com [place] of highhandedness. He shoveled snow this morning but at that time he did not have chest pain, sob or palpitation. He has not been drinking and eating well today. He otherwise denies headache, chest pain, sob, abd pain, n/v/d, fever or chills. Denies hearing loss, tinnitus, or ear pain. In the ER, NIH score zero. His BP was not controlled. CT of head negative for acute change. - Related Data Allergies/Adverse Reactions: Allergies Allergy/AdvReac Type Severity Reaction Status Date / Time Fish Containing Products Allergy Severe Airway Verified 03/03/21 21:39 Tightness fish derived Allergy Severe Airway Verified 03/03/21 21:39 Tightness fish oil Allergy Severe Airway Verified 03/03/21 21:39 Tightness fish Allergy Severe Airway Uncoded 03/03/21 21:39 Tightness Home Medications: Home Meds Finasteride [Proscar] 5 mg PO DAILY 11/12/13 [History] Tamsulosin [Flomax] 0.4 mg PO BEDTIME 11/12/13 [History] hydroCHLOROthiazide [Hydrochlorothiazide] 12.5 mg PO DAILY 11/12/13 [History] Metoprolol Succinate 25 mg PO DAILY #30 tab.er.24h 09/12/19 [Rx] Rivaroxaban [Xarelto] 20 mg PO DAILY #30 tablet 09/12/19 [Rx] Citalopram Hydrobromide [Celexa] 10 mg PO DAILY 02/05/20 [History] Donepezil [Aricept] 5 mg PO BEDTIME 02/05/20 [History] Brimonidine Tartrate [Brimonidine Tartrate 0.2% Ophth Soln] 1 drop EYEBOTH ASDIRECTED 03/03/21 [History] Triamcinolone Acetonide [Kenalog 0.1% Crm] 1 applic TOP ASDIRECTED 03/03/21 [History] Past Medical History HEENT History: Reports: Cataract, Glaucoma, Impaired Vision Cardiovascular History: Reports: Afib, High Cholesterol, Hypertension Other Cardiovascular History: Had hypercholesteremia but got his weight under control and no longer needed medication. Genitourinary History: Reports: BPH Musculoskeletal History: Reports: Osteoarthritis Neurological History: Reports: Alzheimers Disease Psychiatric History: Reports: Dementia - Infectious Disease History Infectious Disease History: Reports: Chicken Pox, Measles, Mumps - Past Surgical History HEENT Surgical History: Reports: Cataract Surgery, Oral Surgery, Tonsillectomy GI Surgical History: Reports: Appendectomy, Cholecystectomy Neurological Surgical History: Reports: Lumbar Spine Musculoskeletal Surgical History: Reports: Hip Replacement Other Musculoskeletal Surgeries/Procedures:: spurs taken off of back Social & Family History - Family History Family Medical History: No Pertinent Family History (denies genetic disease in family) - Tobacco Use Tobacco Use Status *Q: Former Tobacco User Used Tobacco, but Quit: Yes Month/Year Tobacco Last Used: 03/1979 - Caffeine Use Caffeine Use: Reports: Coffee, Soda - Recreational Drug Use Recreational Drug Use: No - Living Situation & Occupation Living situation: Reports: , with Spouse Occupation: Retired H&P Review of Systems - Review of Systems: Review Of Systems: See Below General: Reports: Weakness HEENT: Reports: Other (lightheadedness) Pulmonary: Reports: No Symptoms Cardiovascular: Reports: Lightheadedness Gastrointestinal: Reports: No Symptoms Genitourinary: Reports: No Symptoms Musculoskeletal: Reports: No Symptoms Skin: Reports: No Symptoms Psychiatric: Reports: No Symptoms Neurological: Reports: No Symptoms Hematologic/Lymphatic: Reports: No Symptoms Immunologic: Reports: No Symptoms Exam - Exam Exam: See Below - Vital Signs Vital Signs: Last Vital Signs Temp 36.4 C 03/03/21 18:30 Pulse 56 L 03/03/21 18:30 Resp 20 03/03/21 18:30 BP 172/82 H 03/03/21 18:30 Pulse Ox 100 03/03/21 18:30 Weight: 83.915 kg - Exam General: Alert, Oriented, Cooperative HEENT: Conjunctiva Clear, EOMI, Pupils Equal, Pupils Reactive Neck: Supple, Full Range of Motion Lungs: Clear to Auscultation, Normal Respiratory Effort Cardiovascular: Irregular Rhythm, Bradycardia GI/Abdominal Exam: Normal Bowel Sounds, Soft, Non-Tender, No Organomegaly, No Distention Extremities: Normal Inspection, Normal Range of Motion, Non-Tender, No Pedal Edema Skin: Warm, Dry, Intact Neurological: Reflexes Equal Bilateral, Strength Equal Bilateral, Normal Tone, Sensation Intact Neuro Extensive - Mental Status: Normal Mood/Affect Psychiatric: Normal Mood - Patient Data Lab Results Last 24 hrs: Laboratory Results - last 24 hr 03/03/21 03/03/21 03/03/21 Range/Units 18:47 19:40 19:40 WBC 6.13 (4.23-9.07) K/mm3 RBC 3.73 L (4.63-6.08) M/mm3 Hgb 11.4 L D (13.7-17.5) gm/dl Hct 35.8 L (40.1-51.0) % MCV 96.0 H (79.0-92.2) fl MCH 30.6 (25.7-32.2) pg MCHC 31.8 L (32.2-35.5) g/dl RDW Std Deviation 48.2 H (35.1-43.9) fL Plt Count 179 (163-337) K/mm3 MPV 9.7 (9.4-12.3) fl Neut % (Auto) 60.6 (34.0-67.9) % Lymph % (Auto) 24.6 (21.8-53.1) % [place] % (Auto) 10.0 (5.3-12.2) % Eos % (Auto) 4.1 (0.8-7.0) Baso % (Auto) 0.5 (0.1-1.2) % Neut # (Auto) 3.72 (1.78-5.38) K/mm3 Lymph # (Auto) 1.51 (1.32-3.57) K/mm3 [place] # (Auto) 0.61 (0.30-0.82) K/mm3 Eos # (Auto) 0.25 (0.04-0.54) K/mm3 Baso # (Auto) 0.03 (0.01-0.08) K/mm3 Sodium 143 (136-145) mEq/L Potassium 3.9 (3.5-5.1) mEq/L Chloride 104 (98-107) mEq/L Carbon Dioxide 32 (21-32) mEq/L Anion Gap 10.9 (5-15) BUN 18 (7-18) mg/dL Creatinine 0.8 (0.7-1.3) mg/dL Est Cr Clr Drug Dosing 74.10 mL/min Estimated GFR (MDRD) > 60 (>60) mL/min BUN/Creatinine Ratio 22.5 H (14-18) Glucose 111 H (70-99) mg/dL Calcium 8.1 L (8.5-10.1) mg/dL Total Bilirubin 1.4 H (0.2-1.0) mg/dL AST 16 (15-37) U/L ALT 20 (16-63) U/L Alkaline Phosphatase 61 (46-116) U/L Troponin I < 0.017 (0.00-0.056) ng/mL Total Protein 6.2 L (6.4-8.2) g/dl Albumin 3.2 L (3.4-5.0) g/dl Globulin 3.0 gm/dL Albumin/Globulin Ratio 1.1 (1-2) Vitamin B12 (193-986) pg/ml Folate (8.6-58.9) ng/mL Urine Color (Yellow) Urine Appearance (Clear) Urine pH (5.0-8.0) Ur Specific [place] (1.005-1.030) Urine Protein (Negative) Urine Glucose (UA) (Negative) Urine Ketones (Negative) Urine Occult Blood (Negative) Urine Nitrite (Negative) Urine Bilirubin (Negative) Urine Urobilinogen (0.2-1.0) Ur Leukocyte Esterase (Negative) Influenza Type A RNA Negative (NEGATIVE) Influenza Type B RNA Negative (NEGATIVE) SARS-CoV-2 RNA (HOWARD) Negative (NEGATIVE) 03/03/21 03/03/21 Range/Units 19:40 19:42 WBC (4.23-9.07) K/mm3 RBC (4.63-6.08) M/mm3 Hgb (13.7-17.5) gm/dl Hct (40.1-51.0) % MCV (79.0-92.2) fl MCH (25.7-32.2) pg MCHC (32.2-35.5) g/dl RDW Std Deviation (35.1-43.9) fL Plt Count (163-337) K/mm3 MPV (9.4-12.3) fl Neut % (Auto) (34.0-67.9) % Lymph % (Auto) (21.8-53.1) % [place] % (Auto) (5.3-12.2) % Eos % (Auto) (0.8-7.0) Baso % (Auto) (0.1-1.2) % Neut # (Auto) (1.78-5.38) K/mm3 Lymph # (Auto) (1.32-3.57) K/mm3 [place] # (Auto) (0.30-0.82) K/mm3 Eos # (Auto) (0.04-0.54) K/mm3 Baso # (Auto) (0.01-0.08) K/mm3 Sodium (136-145) mEq/L Potassium (3.5-5.1) mEq/L Chloride (98-107) mEq/L Carbon Dioxide (21-32) mEq/L Anion Gap (5-15) BUN (7-18) mg/dL Creatinine (0.7-1.3) mg/dL Est Cr Clr Drug Dosing mL/min Estimated GFR (MDRD) (>60) mL/min BUN/Creatinine Ratio (14-18) Glucose (70-99) mg/dL Calcium (8.5-10.1) mg/dL Total Bilirubin (0.2-1.0) mg/dL AST (15-37) U/L ALT (16-63) U/L Alkaline Phosphatase (46-116) U/L Troponin I (0.00-0.056) ng/mL Total Protein (6.4-8.2) g/dl Albumin (3.4-5.0) g/dl Globulin gm/dL Albumin/Globulin Ratio (1-2) Vitamin B12 326 (193-986) pg/ml Folate 13.8 (8.6-58.9) ng/mL Urine Color Yellow (Yellow) Urine Appearance Clear (Clear) Urine pH 7.0 (5.0-8.0) Ur Specific [place] 1.020 (1.005-1.030) Urine Protein Negative (Negative) Urine Glucose (UA) Negative (Negative) Urine Ketones Negative (Negative) Urine Occult Blood Negative (Negative) Urine Nitrite Negative (Negative) Urine Bilirubin Negative (Negative) Urine Urobilinogen 2.0 H (0.2-1.0) Ur Leukocyte Esterase Negative (Negative) Influenza Type A RNA (NEGATIVE) Influenza Type B RNA (NEGATIVE) SARS-CoV-2 RNA (HOWARD) (NEGATIVE) Result Diagrams: 03/03/21 19:40 03/03/21 19:40 Sepsis Event Note - Focused Exam Vital Signs: Vital Signs Temp Pulse Resp BP Pulse Ox 03/03/21 18:30 36.4 C 56 L 20 172/82 H 100 Problem List Initiated/Reviewed/Updated: Yes Orders Last 24hrs: Active Orders 24 hr Category Date Time Status Patient Status [ADT] Routine ADT 03/03/21 22:57 Active Bedrest Bedside Commode [RC] ASDIRECTED Care 03/03/21 22:57 Active Cardiac Monitoring [RC] CONTINUOUS Care 03/03/21 22:59 Active Intake and Output [RC] 04,16 Care 03/03/21 22:59 Active Oxygen Therapy [RC] PRN Care 03/03/21 22:57 Active Pulse Oximetry [RC] CONTINUOUS Care 03/03/21 22:59 Active RT Aerosol Therapy [RC] ASDIRECTED Care 03/03/21 23:02 Active VTE/DVT Education [RC] PER UNIT ROUTINE Care 03/03/21 22:57 Active Vital Signs [RC] Q4HR Care 03/03/21 22:57 Active OT Evaluation and Treatment [CONS] Routine Cons 03/03/21 22:57 Active PT Evaluation and Treatment [CONS] Routine Cons 03/03/21 22:57 Active HEALTH SERVICES COORDINATOR Evaluation and Treatment [CONS] Routine Cons 03/03/21 22:57 Active Heart Healthy Diet [DIET] Diet 03/03/21 Breakfast Active Brain wo Cont [MR] Stat Exams 03/03/21 23:05 Ordered Carotid Comp [US] Stat Exams 03/03/21 23:08 Ordered Echo Comp wo Cont [US] Routine Exams 03/04/21 23:06 Ordered Head wo Cont [CT] Stat Exams 03/03/21 21:11 Taken A1C [GLYCOSYLATED HEMOGLOBIN,HGBA1C] [CHEM] Stat Lab 03/04/21 05:00 Ordered CBC WITH AUTO DIFF [HEME] DAILY Lab 03/08/21 05:00 Ordered CBC WITH AUTO DIFF [HEME] DAILY Lab 03/04/21 05:00 Ordered CBC WITH AUTO DIFF [HEME] DAILY Lab 03/05/21 05:00 Ordered CBC WITH AUTO DIFF [HEME] DAILY Lab 03/06/21 05:00 Ordered CBC WITH AUTO DIFF [HEME] DAILY Lab 03/07/21 05:00 Ordered COMPREHENSIVE METABOLIC PN,CMP [CHEM] DAILY Lab 03/08/21 05:00 Ordered COMPREHENSIVE METABOLIC PN,CMP [CHEM] DAILY Lab 03/04/21 05:00 Ordered COMPREHENSIVE METABOLIC PN,CMP [CHEM] DAILY Lab 03/05/21 05:00 Ordered COMPREHENSIVE METABOLIC PN,CMP [CHEM] DAILY Lab 03/06/21 05:00 Ordered COMPREHENSIVE METABOLIC PN,CMP [CHEM] DAILY Lab 03/07/21 05:00 Ordered INR,PT,PROTHROMBIN TIME [COAG] Routine Lab 03/03/21 22:57 Ordered LIPID PANEL [CHEM] Stat Lab 03/04/21 05:00 Ordered MAGNESIUM [CHEM] Routine Lab 03/03/21 22:57 Ordered PTT,PARTIAL THROMBOPLSTIN TIME [COAG] Routine Lab 03/03/21 22:57 Ordered TROPONIN I [CHEM] Routine Lab 03/03/21 22:57 Ordered Acetaminophen [TylenoL] Med 03/03/21 22:57 Active 650 mg PO Q6H PRN Albuterol/Ipratropium [DuoNeb 3.0-0.5 MG/3 ML] Med 03/03/21 22:57 Active 3 ml NEB Q4H PRN Aspirin [Halfprin] Med 03/03/21 23:15 Active 81 mg PO DAILY Brimonidine Tartrate Med 03/03/21 23:00 Pending 1 drop EYEBOTH ASDIRECTED Citalopram [Celexa] Med 03/04/21 09:00 Active 10 mg PO DAILY Donepezil [Aricept] Med 03/04/21 21:00 Active 5 mg PO BEDTIME Finasteride [Proscar] Med 03/04/21 09:00 Active 5 mg PO DAILY Lactated Ringers [Ringers, Lactated] 1,000 ml Med 03/03/21 23:00 Active IV ASDIRECTED Metoprolol Succinate [Toprol XL] Med 03/04/21 09:00 Active 25 mg PO DAILY Morphine Med 03/03/21 22:57 Active 2 mg IVPUSH Q4H PRN Ondansetron [Zofran] Med 03/03/21 22:57 Active 4 mg IV Q6H PRN Rivaroxaban [Xarelto] Med 03/04/21 09:00 Active 20 mg PO DAILY Tamsulosin [Flomax] Med 03/04/21 21:00 Active 0.4 mg PO BEDTIME Triamcinolone Acetonide Med 03/03/21 23:00 Pending 1 applic TOP ASDIRECTED amLODIPine [Norvasc] Med 03/03/21 23:15 Ordered 2.5 mg PO DAILY atorvaSTATin [Lipitor] Med 03/04/21 21:00 Active 40 mg PO BEDTIME hydrALAZINE [Apresoline] Med 03/03/21 23:09 Active 10 mg IVPUSH Q4H PRN oxyCODONE Med 03/03/21 22:57 Active 5 mg PO Q4H PRN Medication Orders Acetaminophen (Acetaminophen 325 Mg Tab) 650 mg PO Q6H PRN PRN Reason: Pain (Mild 1-3)/fever Albuterol/Ipratropium (Albuterol/Ipratropium 3.0-0.5 Mg/3 Ml Neb Soln) 3 ml NEB Q4H PRN PRN Reason: Shortness Of Breath/wheezing Amlodipine Besylate (Amlodipine 5 Mg Tab) 2.5 mg PO DAILY [facility] Aspirin (Aspirin 81 Mg Tab.Ec) 81 mg PO DAILY [facility] Atorvastatin Calcium (Atorvastatin 40 Mg Tab) 40 mg PO BEDTIME [facility] Citalopram Hydrobromide (Citalopram 10 Mg Tab) 10 mg PO DAILY [facility] Donepezil HCl (Donepezil 10 Mg Tab) 5 mg PO BEDTIME [facility] Finasteride (Finasteride 5 Mg Tab) 5 mg PO DAILY [facility] Hydralazine HCl (Hydralazine 20 Mg/Ml Sdv) 10 mg IVPUSH Q4H PRN PRN Reason: Hypertension Lactated Ringer's (Ringers, Lactated) 1,000 mls @ 65 mls/hr IV ASDIRECTED [facility] Metoprolol Succinate (Metoprolol Succinate 25 Mg Tab.Er) 25 mg PO DAILY [facility] Morphine Sulfate (Morphine 2 Mg/Ml Syringe) 2 mg IVPUSH Q4H PRN PRN Reason: Pain (severe 7-10) Stop: 03/04/21 23:01 Non-Formulary Medication (Brimonidine Tartrate) 1 drop EYEBOTH ASDIRECTED [facility] Non-Formulary Medication (Triamcinolone Acetonide) 1 applic TOP ASDIRECTED [facility] Ondansetron HCl (Ondansetron 4 Mg/2 Ml Sdv) 4 mg IV Q6H PRN PRN Reason: Nausea/Vomiting Oxycodone HCl (Oxycodone 5 Mg Tab) 5 mg PO Q4H PRN PRN Reason: Pain (moderate 4-6) Rivaroxaban (Rivaroxaban 10 Mg Tab) 20 mg PO DAILY [facility] Tamsulosin HCl (Tamsulosin 0.4 Mg Cap.Er) 0.4 mg PO BEDTIME [facility]I Assessment/Plan Comment:: Pt is an 86 year old male with a hx of HTN who was brought to the ER due to weakness of legs and lightheadedness. Assessment and plan: Lightheadedness Weakness, legs Etilogies unknown, including but not limited to TIA/stroke, infection, dehydration, drug abuse Influenza A and B negative Covid negative CT of head negative (formal report pending) NIH score 0 in the ER UDS Lipid panel A1c PT/INR, PTT Carotid artery, US doppler Echo MRI brain aspirin and lipitor PT/OT/SP Atrial fibrillation on Xaelto Bradycardia, 56 in the ER Continue metoprolol 25mg daily Continue Xarelto 20mg daily HTN, uncontrolled HCTZ 12.5mg daily is on hold Continue metoprolol 25mg daily added amlodipine 2.5mg daily Hydralazine prn Dehydration 1L was given in the ER Continue IVF Hyperbilirubinemia, 1.4 in the ER Repeat Bilirubin and liver function in am Dementia Continue donepezil 5mg at bedtime DVT prophylaxis: Xarelto Disposition: observation - Mortality Measure Prognosis:: Good
[2021-03-03] MEDS: Aspirin 81 MG Tab.EC PO SCH (23:43)
[2021-03-03] MEDS: amLODIPine 5 MG Tab PO SCH (23:43)
[2021-03-04 06:49] LABS: HEMOGLOBIN A1C 5.4 %
--- NOTE | 2021-03-04 08:00 | PCM.PN ---
<Nikolay Mclean - Last Filed: 03/04/21 13:06> - General Info Date of Service: 03/04/21 Admission Dx/Problem (Free Text): Admission Diagnosis/Problem Admission Diagnosis/Problem Lightheadedness - Patient Data Vitals - Most Recent: Last Vital Signs Temp 97.5 F 03/04/21 02:42 Pulse 55 L 03/04/21 02:42 Resp 17 03/04/21 02:42 BP 136/80 03/04/21 02:42 Pulse Ox 97 03/04/21 02:42 Weight - Most Recent: 81.783 kg I&O - Last 24 Hours: Intake & Output 03/03/21 03/04/21 03/04/21 22:59 06:59 14:59 Intake Total 325 Output Total 600 Balance -275 Lab Results Last 24 Hours: Laboratory Results - last 24 hr 03/03/21 03/03/21 03/03/21 Range/Units 18:47 19:40 19:40 WBC 6.13 (4.23-9.07) K/mm3 RBC 3.73 L (4.63-6.08) M/mm3 Hgb 11.4 L D (13.7-17.5) gm/dl Hct 35.8 L (40.1-51.0) % MCV 96.0 H (79.0-92.2) fl MCH 30.6 (25.7-32.2) pg MCHC 31.8 L (32.2-35.5) g/dl RDW Std Deviation 48.2 H (35.1-43.9) fL Plt Count 179 (163-337) K/mm3 MPV 9.7 (9.4-12.3) fl Neut % (Auto) 60.6 (34.0-67.9) % Lymph % (Auto) 24.6 (21.8-53.1) % [place] % (Auto) 10.0 (5.3-12.2) % Eos % (Auto) 4.1 (0.8-7.0) Baso % (Auto) 0.5 (0.1-1.2) % Neut # (Auto) 3.72 (1.78-5.38) K/mm3 Lymph # (Auto) 1.51 (1.32-3.57) K/mm3 [place] # (Auto) 0.61 (0.30-0.82) K/mm3 Eos # (Auto) 0.25 (0.04-0.54) K/mm3 Baso # (Auto) 0.03 (0.01-0.08) K/mm3 PT (9.7-12.0) SECONDS INR APTT (21.7-31.4) SECONDS Sodium 143 (136-145) mEq/L Potassium 3.9 (3.5-5.1) mEq/L Chloride 104 (98-107) mEq/L Carbon Dioxide 32 (21-32) mEq/L Anion Gap 10.9 (5-15) BUN 18 (7-18) mg/dL Creatinine 0.8 (0.7-1.3) mg/dL Est Cr Clr Drug Dosing 74.10 mL/min Estimated GFR (MDRD) > 60 (>60) mL/min BUN/Creatinine Ratio 22.5 H (14-18) Glucose 111 H (70-99) mg/dL Hemoglobin A1c ( - 5.6) % Calcium 8.1 L (8.5-10.1) mg/dL Magnesium (1.8-2.4) mg/dL Total Bilirubin 1.4 H (0.2-1.0) mg/dL AST 16 (15-37) U/L ALT 20 (16-63) U/L Alkaline Phosphatase 61 (46-116) U/L Troponin I < 0.017 (0.00-0.056) ng/mL NT-Pro-B Natriuret Pep (0-450) pg/mL Total Protein 6.2 L (6.4-8.2) g/dl Albumin 3.2 L (3.4-5.0) g/dl Globulin 3.0 gm/dL Albumin/Globulin Ratio 1.1 (1-2) Triglycerides (<150) mg/dL Cholesterol (<200) mg/dL LDL Cholesterol Direct (<100) mg/dL HDL Cholesterol (40-59) mg/dL Vitamin B12 (193-986) pg/ml Folate (8.6-58.9) ng/mL Urine Color (Yellow) Urine Appearance (Clear) Urine pH (5.0-8.0) Ur Specific [place] (1.005-1.030) Urine Protein (Negative) Urine Glucose (UA) (Negative) Urine Ketones (Negative) Urine Occult Blood (Negative) Urine Nitrite (Negative) Urine Bilirubin (Negative) Urine Urobilinogen (0.2-1.0) Ur Leukocyte Esterase (Negative) Influenza Type A RNA Negative (NEGATIVE) Influenza Type B RNA Negative (NEGATIVE) SARS-CoV-2 RNA (HOWARD) Negative (NEGATIVE) 03/03/21 03/03/21 03/03/21 Range/Units 19:40 19:42 23:19 WBC (4.23-9.07) K/mm3 RBC (4.63-6.08) M/mm3 Hgb (13.7-17.5) gm/dl Hct (40.1-51.0) % MCV (79.0-92.2) fl MCH (25.7-32.2) pg MCHC (32.2-35.5) g/dl RDW Std Deviation (35.1-43.9) fL Plt Count (163-337) K/mm3 MPV (9.4-12.3) fl Neut % (Auto) (34.0-67.9) % Lymph % (Auto) (21.8-53.1) % [place] % (Auto) (5.3-12.2) % Eos % (Auto) (0.8-7.0) Baso % (Auto) (0.1-1.2) % Neut # (Auto) (1.78-5.38) K/mm3 Lymph # (Auto) (1.32-3.57) K/mm3 [place] # (Auto) (0.30-0.82) K/mm3 Eos # (Auto) (0.04-0.54) K/mm3 Baso # (Auto) (0.01-0.08) K/mm3 PT 11.8 (9.7-12.0) SECONDS INR 1.07 APTT 29.3 (21.7-31.4) SECONDS Sodium (136-145) mEq/L Potassium (3.5-5.1) mEq/L Chloride (98-107) mEq/L Carbon Dioxide (21-32) mEq/L Anion Gap (5-15) BUN (7-18) mg/dL Creatinine (0.7-1.3) mg/dL Est Cr Clr Drug Dosing mL/min Estimated GFR (MDRD) (>60) mL/min BUN/Creatinine Ratio (14-18) Glucose (70-99) mg/dL Hemoglobin A1c ( - 5.6) % Calcium (8.5-10.1) mg/dL Magnesium (1.8-2.4) mg/dL Total Bilirubin (0.2-1.0) mg/dL AST (15-37) U/L ALT (16-63) U/L Alkaline Phosphatase (46-116) U/L Troponin I (0.00-0.056) ng/mL NT-Pro-B Natriuret Pep (0-450) pg/mL Total Protein (6.4-8.2) g/dl Albumin (3.4-5.0) g/dl Globulin gm/dL Albumin/Globulin Ratio (1-2) Triglycerides (<150) mg/dL Cholesterol (<200) mg/dL LDL Cholesterol Direct (<100) mg/dL HDL Cholesterol (40-59) mg/dL Vitamin B12 326 (193-986) pg/ml Folate 13.8 (8.6-58.9) ng/mL Urine Color Yellow (Yellow) Urine Appearance Clear (Clear) Urine pH 7.0 (5.0-8.0) Ur Specific [place] 1.020 (1.005-1.030) Urine Protein Negative (Negative) Urine Glucose (UA) Negative (Negative) Urine Ketones Negative (Negative) Urine Occult Blood Negative (Negative) Urine Nitrite Negative (Negative) Urine Bilirubin Negative (Negative) Urine Urobilinogen 2.0 H (0.2-1.0) Ur Leukocyte Esterase Negative (Negative) Influenza Type A RNA (NEGATIVE) Influenza Type B RNA (NEGATIVE) SARS-CoV-2 RNA (HOWARD) (NEGATIVE) 03/03/21 03/04/21 03/04/21 Range/Units 23:19 05:10 05:10 WBC 5.36 (4.23-9.07) K/mm3 RBC 3.71 L (4.63-6.08) M/mm3 Hgb 11.3 L (13.7-17.5) gm/dl Hct 35.7 L (40.1-51.0) % MCV 96.2 H (79.0-92.2) fl MCH 30.5 (25.7-32.2) pg MCHC 31.7 L (32.2-35.5) g/dl RDW Std Deviation 48.0 H (35.1-43.9) fL Plt Count 177 (163-337) K/mm3 MPV 10.1 (9.4-12.3) fl Neut % (Auto) 55.5 (34.0-67.9) % Lymph % (Auto) 26.3 (21.8-53.1) % [place] % (Auto) 11.4 (5.3-12.2) % Eos % (Auto) 6.0 (0.8-7.0) Baso % (Auto) 0.6 (0.1-1.2) % Neut # (Auto) 2.98 (1.78-5.38) K/mm3 Lymph # (Auto) 1.41 (1.32-3.57) K/mm3 [place] # (Auto) 0.61 (0.30-0.82) K/mm3 Eos # (Auto) 0.32 (0.04-0.54) K/mm3 Baso # (Auto) 0.03 (0.01-0.08) K/mm3 PT (9.7-12.0) SECONDS INR APTT (21.7-31.4) SECONDS Sodium 144 (136-145) mEq/L Potassium 3.6 (3.5-5.1) mEq/L Chloride 105 (98-107) mEq/L Carbon Dioxide 30 (21-32) mEq/L Anion Gap 12.6 (5-15) BUN 15 (7-18) mg/dL Creatinine 0.9 (0.7-1.3) mg/dL Est Cr Clr Drug Dosing 63.91 mL/min Estimated GFR (MDRD) > 60 (>60) mL/min BUN/Creatinine Ratio 16.7 (14-18) Glucose 93 (70-99) mg/dL Hemoglobin A1c ( - 5.6) % Calcium 8.4 L (8.5-10.1) mg/dL Magnesium 2.2 (1.8-2.4) mg/dL Total Bilirubin 1.3 H (0.2-1.0) mg/dL AST 18 (15-37) U/L ALT 15 L (16-63) U/L Alkaline Phosphatase 55 (46-116) U/L Troponin I < 0.017 (0.00-0.056) ng/mL NT-Pro-B Natriuret Pep (0-450) pg/mL Total Protein 5.9 L (6.4-8.2) g/dl Albumin 3.1 L (3.4-5.0) g/dl Globulin 2.8 gm/dL Albumin/Globulin Ratio 1.1 (1-2) Triglycerides 47 (<150) mg/dL Cholesterol 125 (<200) mg/dL LDL Cholesterol Direct 78 (<100) mg/dL HDL Cholesterol 38.0 L (40-59) mg/dL Vitamin B12 (193-986) pg/ml Folate (8.6-58.9) ng/mL Urine Color (Yellow) Urine Appearance (Clear) Urine pH (5.0-8.0) Ur Specific [place] (1.005-1.030) Urine Protein (Negative) Urine Glucose (UA) (Negative) Urine Ketones (Negative) Urine Occult Blood (Negative) Urine Nitrite (Negative) Urine Bilirubin (Negative) Urine Urobilinogen (0.2-1.0) Ur Leukocyte Esterase (Negative) Influenza Type A RNA (NEGATIVE) Influenza Type B RNA (NEGATIVE) SARS-CoV-2 RNA (HOWARD) (NEGATIVE) 03/04/21 03/04/21 Range/Units 05:10 05:10 WBC (4.23-9.07) K/mm3 RBC (4.63-6.08) M/mm3 Hgb (13.7-17.5) gm/dl Hct (40.1-51.0) % MCV (79.0-92.2) fl MCH (25.7-32.2) pg MCHC (32.2-35.5) g/dl RDW Std Deviation (35.1-43.9) fL Plt Count (163-337) K/mm3 MPV (9.4-12.3) fl Neut % (Auto) (34.0-67.9) % Lymph % (Auto) (21.8-53.1) % [place] % (Auto) (5.3-12.2) % Eos % (Auto) (0.8-7.0) Baso % (Auto) (0.1-1.2) % Neut # (Auto) (1.78-5.38) K/mm3 Lymph # (Auto) (1.32-3.57) K/mm3 [place] # (Auto) (0.30-0.82) K/mm3 Eos # (Auto) (0.04-0.54) K/mm3 Baso # (Auto) (0.01-0.08) K/mm3 PT (9.7-12.0) SECONDS INR APTT (21.7-31.4) SECONDS Sodium (136-145) mEq/L Potassium (3.5-5.1) mEq/L Chloride (98-107) mEq/L Carbon Dioxide (21-32) mEq/L Anion Gap (5-15) BUN (7-18) mg/dL Creatinine (0.7-1.3) mg/dL Est Cr Clr Drug Dosing mL/min Estimated GFR (MDRD) (>60) mL/min BUN/Creatinine Ratio (14-18) Glucose (70-99) mg/dL Hemoglobin A1c 5.4 ( - 5.6) % Calcium (8.5-10.1) mg/dL Magnesium (1.8-2.4) mg/dL Total Bilirubin (0.2-1.0) mg/dL AST (15-37) U/L ALT (16-63) U/L Alkaline Phosphatase (46-116) U/L Troponin I (0.00-0.056) ng/mL NT-Pro-B Natriuret Pep 832 H (0-450) pg/mL Total Protein (6.4-8.2) g/dl Albumin (3.4-5.0) g/dl Globulin gm/dL Albumin/Globulin Ratio (1-2) Triglycerides (<150) mg/dL Cholesterol (<200) mg/dL LDL Cholesterol Direct (<100) mg/dL HDL Cholesterol (40-59) mg/dL Vitamin B12 (193-986) pg/ml Folate (8.6-58.9) ng/mL Urine Color (Yellow) Urine Appearance (Clear) Urine pH (5.0-8.0) Ur Specific [place] (1.005-1.030) Urine Protein (Negative) Urine Glucose (UA) (Negative) Urine Ketones (Negative) Urine Occult Blood (Negative) Urine Nitrite (Negative) Urine Bilirubin (Negative) Urine Urobilinogen (0.2-1.0) Ur Leukocyte Esterase (Negative) Influenza Type A RNA (NEGATIVE) Influenza Type B RNA (NEGATIVE) SARS-CoV-2 RNA (HOWARD) (NEGATIVE) Med Orders - Current: Current Medications Acetaminophen (Acetaminophen 325 Mg Tab) 650 mg PO Q6H PRN PRN Reason: Pain (Mild 1-3)/fever Albuterol/Ipratropium (Albuterol/Ipratropium 3.0-0.5 Mg/3 Ml Neb Soln) 3 ml NEB Q4H PRN PRN Reason: Shortness Of Breath/wheezing Amlodipine Besylate (Amlodipine 5 Mg Tab) 2.5 mg PO DAILY [facility] Last Admin: 03/03/21 23:43 Dose: 2.5 mg Documented by: Aspirin (Aspirin 81 Mg Tab.Ec) 81 mg PO DAILY [facility] Last Admin: 03/03/21 23:43 Dose: 81 mg Documented by: Atorvastatin Calcium (Atorvastatin 40 Mg Tab) 40 mg PO BEDTIME [facility] Citalopram Hydrobromide (Citalopram 10 Mg Tab) 10 mg PO DAILY [facility] Donepezil HCl (Donepezil 10 Mg Tab) 5 mg PO BEDTIME [facility] Finasteride (Finasteride 5 Mg Tab) 5 mg PO DAILY [facility] Hydralazine HCl (Hydralazine 20 Mg/Ml Sdv) 10 mg IVPUSH Q4H PRN PRN Reason: Hypertension Lactated Ringer's (Ringers, Lactated) 1,000 mls @ 65 mls/hr IV ASDIRECTED [facility] Last Admin: 03/03/21 23:45 Dose: 65 mls/hr Documented by: Metoprolol Succinate (Metoprolol Succinate 25 Mg Tab.Er) 25 mg PO DAILY [facility] Morphine Sulfate (Morphine 2 Mg/Ml Syringe) 2 mg IVPUSH Q4H PRN PRN Reason: Pain (severe 7-10) Stop: 03/04/21 23:01 Ondansetron HCl (Ondansetron 4 Mg/2 Ml Sdv) 4 mg IV Q6H PRN PRN Reason: Nausea/Vomiting Oxycodone HCl (Oxycodone 5 Mg Tab) 5 mg PO Q4H PRN PRN Reason: Pain (moderate 4-6) Brimonidine Tartrate (15 Ml Bottle) 0 each EYEBOTH ASDIRECTED [facility] Rivaroxaban (Rivaroxaban 10 Mg Tab) 20 mg PO DAILY [facility] Tamsulosin HCl (Tamsulosin 0.4 Mg Cap.Er) 0.4 mg PO BEDTIME [facility] Discontinued Medications Lactated Ringer's (Ringers, Lactated) 1,000 mls @ 1,000 mls/hr IV .BOLUS ONE Stop: 03/03/21 20:27 Last Admin: 03/03/21 20:00 Dose: 1,000 mls/hr Documented by: Non-Formulary Medication (Triamcinolone Acetonide) 1 applic TOP ASDIRECTED [facility] - Patient Data Lab Results Last 24 hrs: Laboratory Results - last 24 hr 03/03/21 03/03/21 03/03/21 Range/Units 18:47 19:40 19:40 WBC 6.13 (4.23-9.07) K/mm3 RBC 3.73 L (4.63-6.08) M/mm3 Hgb 11.4 L D (13.7-17.5) gm/dl Hct 35.8 L (40.1-51.0) % MCV 96.0 H (79.0-92.2) fl MCH 30.6 (25.7-32.2) pg MCHC 31.8 L (32.2-35.5) g/dl RDW Std Deviation 48.2 H (35.1-43.9) fL Plt Count 179 (163-337) K/mm3 MPV 9.7 (9.4-12.3) fl Neut % (Auto) 60.6 (34.0-67.9) % Lymph % (Auto) 24.6 (21.8-53.1) % [place] % (Auto) 10.0 (5.3-12.2) % Eos % (Auto) 4.1 (0.8-7.0) Baso % (Auto) 0.5 (0.1-1.2) % Neut # (Auto) 3.72 (1.78-5.38) K/mm3 Lymph # (Auto) 1.51 (1.32-3.57) K/mm3 [place] # (Auto) 0.61 (0.30-0.82) K/mm3 Eos # (Auto) 0.25 (0.04-0.54) K/mm3 Baso # (Auto) 0.03 (0.01-0.08) K/mm3 PT (9.7-12.0) SECONDS INR APTT (21.7-31.4) SECONDS Sodium 143 (136-145) mEq/L Potassium 3.9 (3.5-5.1) mEq/L Chloride 104 (98-107) mEq/L Carbon Dioxide 32 (21-32) mEq/L Anion Gap 10.9 (5-15) BUN 18 (7-18) mg/dL Creatinine 0.8 (0.7-1.3) mg/dL Est Cr Clr Drug Dosing 74.10 mL/min Estimated GFR (MDRD) > 60 (>60) mL/min BUN/Creatinine Ratio 22.5 H (14-18) Glucose 111 H (70-99) mg/dL Hemoglobin A1c ( - 5.6) % Calcium 8.1 L (8.5-10.1) mg/dL Magnesium (1.8-2.4) mg/dL Total Bilirubin 1.4 H (0.2-1.0) mg/dL AST 16 (15-37) U/L ALT 20 (16-63) U/L Alkaline Phosphatase 61 (46-116) U/L Troponin I < 0.017 (0.00-0.056) ng/mL NT-Pro-B Natriuret Pep (0-450) pg/mL Total Protein 6.2 L (6.4-8.2) g/dl Albumin 3.2 L (3.4-5.0) g/dl Globulin 3.0 gm/dL Albumin/Globulin Ratio 1.1 (1-2) Triglycerides (<150) mg/dL Cholesterol (<200) mg/dL LDL Cholesterol Direct (<100) mg/dL HDL Cholesterol (40-59) mg/dL Vitamin B12 (193-986) pg/ml Folate (8.6-58.9) ng/mL Urine Color (Yellow) Urine Appearance (Clear) Urine pH (5.0-8.0) Ur Specific [place] (1.005-1.030) Urine Protein (Negative) Urine Glucose (UA) (Negative) Urine Ketones (Negative) Urine Occult Blood (Negative) Urine Nitrite (Negative) Urine Bilirubin (Negative) Urine Urobilinogen (0.2-1.0) Ur Leukocyte Esterase (Negative) Influenza Type A RNA Negative (NEGATIVE) Influenza Type B RNA Negative (NEGATIVE) SARS-CoV-2 RNA (HOWARD) Negative (NEGATIVE) 03/03/21 03/03/21 03/03/21 Range/Units 19:40 19:42 23:19 WBC (4.23-9.07) K/mm3 RBC (4.63-6.08) M/mm3 Hgb (13.7-17.5) gm/dl Hct (40.1-51.0) % MCV (79.0-92.2) fl MCH (25.7-32.2) pg MCHC (32.2-35.5) g/dl RDW Std Deviation (35.1-43.9) fL Plt Count (163-337) K/mm3 MPV (9.4-12.3) fl Neut % (Auto) (34.0-67.9) % Lymph % (Auto) (21.8-53.1) % [place] % (Auto) (5.3-12.2) % Eos % (Auto) (0.8-7.0) Baso % (Auto) (0.1-1.2) % Neut # (Auto) (1.78-5.38) K/mm3 Lymph # (Auto) (1.32-3.57) K/mm3 [place] # (Auto) (0.30-0.82) K/mm3 Eos # (Auto) (0.04-0.54) K/mm3 Baso # (Auto) (0.01-0.08) K/mm3 PT 11.8 (9.7-12.0) SECONDS INR 1.07 APTT 29.3 (21.7-31.4) SECONDS Sodium (136-145) mEq/L Potassium (3.5-5.1) mEq/L Chloride (98-107) mEq/L Carbon Dioxide (21-32) mEq/L Anion Gap (5-15) BUN (7-18) mg/dL Creatinine (0.7-1.3) mg/dL Est Cr Clr Drug Dosing mL/min Estimated GFR (MDRD) (>60) mL/min BUN/Creatinine Ratio (14-18) Glucose (70-99) mg/dL Hemoglobin A1c ( - 5.6) % Calcium (8.5-10.1) mg/dL Magnesium (1.8-2.4) mg/dL Total Bilirubin (0.2-1.0) mg/dL AST (15-37) U/L ALT (16-63) U/L Alkaline Phosphatase (46-116) U/L Troponin I (0.00-0.056) ng/mL NT-Pro-B Natriuret Pep (0-450) pg/mL Total Protein (6.4-8.2) g/dl Albumin (3.4-5.0) g/dl Globulin gm/dL Albumin/Globulin Ratio (1-2) Triglycerides (<150) mg/dL Cholesterol (<200) mg/dL LDL Cholesterol Direct (<100) mg/dL HDL Cholesterol (40-59) mg/dL Vitamin B12 326 (193-986) pg/ml Folate 13.8 (8.6-58.9) ng/mL Urine Color Yellow (Yellow) Urine Appearance Clear (Clear) Urine pH 7.0 (5.0-8.0) Ur Specific [place] 1.020 (1.005-1.030) Urine Protein Negative (Negative) Urine Glucose (UA) Negative (Negative) Urine Ketones Negative (Negative) Urine Occult Blood Negative (Negative) Urine Nitrite Negative (Negative) Urine Bilirubin Negative (Negative) Urine Urobilinogen 2.0 H (0.2-1.0) Ur Leukocyte Esterase Negative (Negative) Influenza Type A RNA (NEGATIVE) Influenza Type B RNA (NEGATIVE) SARS-CoV-2 RNA (HOWARD) (NEGATIVE) 03/03/21 03/04/21 03/04/21 Range/Units 23:19 05:10 05:10 WBC 5.36 (4.23-9.07) K/mm3 RBC 3.71 L (4.63-6.08) M/mm3 Hgb 11.3 L (13.7-17.5) gm/dl Hct 35.7 L (40.1-51.0) % MCV 96.2 H (79.0-92.2) fl MCH 30.5 (25.7-32.2) pg MCHC 31.7 L (32.2-35.5) g/dl RDW Std Deviation 48.0 H (35.1-43.9) fL Plt Count 177 (163-337) K/mm3 MPV 10.1 (9.4-12.3) fl Neut % (Auto) 55.5 (34.0-67.9) % Lymph % (Auto) 26.3 (21.8-53.1) % [place] % (Auto) 11.4 (5.3-12.2) % Eos % (Auto) 6.0 (0.8-7.0) Baso % (Auto) 0.6 (0.1-1.2) % Neut # (Auto) 2.98 (1.78-5.38) K/mm3 Lymph # (Auto) 1.41 (1.32-3.57) K/mm3 [place] # (Auto) 0.61 (0.30-0.82) K/mm3 Eos # (Auto) 0.32 (0.04-0.54) K/mm3 Baso # (Auto) 0.03 (0.01-0.08) K/mm3 PT (9.7-12.0) SECONDS INR APTT (21.7-31.4) SECONDS Sodium 144 (136-145) mEq/L Potassium 3.6 (3.5-5.1) mEq/L Chloride 105 (98-107) mEq/L Carbon Dioxide 30 (21-32) mEq/L Anion Gap 12.6 (5-15) BUN 15 (7-18) mg/dL Creatinine 0.9 (0.7-1.3) mg/dL Est Cr Clr Drug Dosing 63.91 mL/min Estimated GFR (MDRD) > 60 (>60) mL/min BUN/Creatinine Ratio 16.7 (14-18) Glucose 93 (70-99) mg/dL Hemoglobin A1c ( - 5.6) % Calcium 8.4 L (8.5-10.1) mg/dL Magnesium 2.2 (1.8-2.4) mg/dL Total Bilirubin 1.3 H (0.2-1.0) mg/dL AST 18 (15-37) U/L ALT 15 L (16-63) U/L Alkaline Phosphatase 55 (46-116) U/L Troponin I < 0.017 (0.00-0.056) ng/mL NT-Pro-B Natriuret Pep (0-450) pg/mL Total Protein 5.9 L (6.4-8.2) g/dl Albumin 3.1 L (3.4-5.0) g/dl Globulin 2.8 gm/dL Albumin/Globulin Ratio 1.1 (1-2) Triglycerides 47 (<150) mg/dL Cholesterol 125 (<200) mg/dL LDL Cholesterol Direct 78 (<100) mg/dL HDL Cholesterol 38.0 L (40-59) mg/dL Vitamin B12 (193-986) pg/ml Folate (8.6-58.9) ng/mL Urine Color (Yellow) Urine Appearance (Clear) Urine pH (5.0-8.0) Ur Specific [place] (1.005-1.030) Urine Protein (Negative) Urine Glucose (UA) (Negative) Urine Ketones (Negative) Urine Occult Blood (Negative) Urine Nitrite (Negative) Urine Bilirubin (Negative) Urine Urobilinogen (0.2-1.0) Ur Leukocyte Esterase (Negative) Influenza Type A RNA (NEGATIVE) Influenza Type B RNA (NEGATIVE) SARS-CoV-2 RNA (HOWARD) (NEGATIVE) 03/04/21 03/04/21 Range/Units 05:10 05:10 WBC (4.23-9.07) K/mm3 RBC (4.63-6.08) M/mm3 Hgb (13.7-17.5) gm/dl Hct (40.1-51.0) % MCV (79.0-92.2) fl MCH (25.7-32.2) pg MCHC (32.2-35.5) g/dl RDW Std Deviation (35.1-43.9) fL Plt Count (163-337) K/mm3 MPV (9.4-12.3) fl Neut % (Auto) (34.0-67.9) % Lymph % (Auto) (21.8-53.1) % [place] % (Auto) (5.3-12.2) % Eos % (Auto) (0.8-7.0) Baso % (Auto) (0.1-1.2) % Neut # (Auto) (1.78-5.38) K/mm3 Lymph # (Auto) (1.32-3.57) K/mm3 [place] # (Auto) (0.30-0.82) K/mm3 Eos # (Auto) (0.04-0.54) K/mm3 Baso # (Auto) (0.01-0.08) K/mm3 PT (9.7-12.0) SECONDS INR APTT (21.7-31.4) SECONDS Sodium (136-145) mEq/L Potassium (3.5-5.1) mEq/L Chloride (98-107) mEq/L Carbon Dioxide (21-32) mEq/L Anion Gap (5-15) BUN (7-18) mg/dL Creatinine (0.7-1.3) mg/dL Est Cr Clr Drug Dosing mL/min Estimated GFR (MDRD) (>60) mL/min BUN/Creatinine Ratio (14-18) Glucose (70-99) mg/dL Hemoglobin A1c 5.4 ( - 5.6) % Calcium (8.5-10.1) mg/dL Magnesium (1.8-2.4) mg/dL Total Bilirubin (0.2-1.0) mg/dL AST (15-37) U/L ALT (16-63) U/L Alkaline Phosphatase (46-116) U/L Troponin I (0.00-0.056) ng/mL NT-Pro-B Natriuret Pep 832 H (0-450) pg/mL Total Protein (6.4-8.2) g/dl Albumin (3.4-5.0) g/dl Globulin gm/dL Albumin/Globulin Ratio (1-2) Triglycerides (<150) mg/dL Cholesterol (<200) mg/dL LDL Cholesterol Direct (<100) mg/dL HDL Cholesterol (40-59) mg/dL Vitamin B12 (193-986) pg/ml Folate (8.6-58.9) ng/mL Urine Color (Yellow) Urine Appearance (Clear) Urine pH (5.0-8.0) Ur Specific [place] (1.005-1.030) Urine Protein (Negative) Urine Glucose (UA) (Negative) Urine Ketones (Negative) Urine Occult Blood (Negative) Urine Nitrite (Negative) Urine Bilirubin (Negative) Urine Urobilinogen (0.2-1.0) Ur Leukocyte Esterase (Negative) Influenza Type A RNA (NEGATIVE) Influenza Type B RNA (NEGATIVE) SARS-CoV-2 RNA (HOWARD) (NEGATIVE) Result Diagrams: 03/04/21 05:10 03/04/21 05:10 Sepsis Event Note - Evaluation Sepsis Screening Result: No Definite Risk - Focused Exam Vital Signs: Vital Signs Temp Pulse Resp BP Pulse Ox 03/04/21 02:42 97.5 F 55 L 17 136/80 97 03/03/21 23:43 154/76 H 03/03/21 23:35 97.3 F 52 L 14 154/76 H 98 - Problem List & Annotations (1) Lightheadedness SNOMED Code(s): 422258574 Code(s): R42 - DIZZINESS AND GIDDINESS Status: Resolved Priority: High Current Visit: Yes (2) Lower extremity weakness SNOMED Code(s): 576197908, 944212548 Code(s): R29.898 - OTH SYMPTOMS AND SIGNS INVOLVING THE MUSCULOSKELETAL SYSTEM Status: Resolved Priority: High Current Visit: Yes Qualifiers: Laterality: bilateral Qualified Code(s): R29.898 - Other symptoms and signs involving the musculoskeletal system (3) Alzheimer's dementia SNOMED Code(s): 95762602 Code(s): G30.9 - ALZHEIMER'S DISEASE, UNSPECIFIED; F02.80 - DEMENTIA IN OTH DISEASES CLASSD ELSWHR W/O BEHAVRL DISTURB Status: Chronic Priority: Medium Current Visit: Yes Qualifiers: Alzheimer's disease onset: unspecified onset Dementia behavioral disturbance: without behavioral disturbance Qualified Code(s): G30.9 - Alzheimer's disease, unspecified; F02.80 - Dementia in other diseases classified elsewhere without behavioral disturbance (4) A-fib SNOMED Code(s): 24138046 Code(s): I48.91 - UNSPECIFIED ATRIAL FIBRILLATION Status: Chronic Priority: Low Current Visit: No Qualifiers: Atrial fibrillation type: unspecified Qualified Code(s): I48.91 - Unspecified atrial fibrillation (5) Chronic anticoagulation SNOMED Code(s): 968287153 Code(s): Z79.01 - FPC (CURRENT) USE OF ANTICOAGULANTS Status: Chronic Priority: Low Current Visit: No (6) HTN (hypertension) SNOMED Code(s): 13155294 Code(s): I10 - ESSENTIAL (PRIMARY) HYPERTENSION Status: Chronic Priority: Medium Current Visit: Yes Qualifiers: Hypertension type: unspecified Qualified Code(s): I10 - Essential (primary) hypertension (7) Dehydration SNOMED Code(s): 00691785 Code(s): E86.0 - DEHYDRATION Status: Resolved Priority: High Current Visit: Yes (8) Hyperbilirubinemia SNOMED Code(s): 89276366 Code(s): E80.6 - OTHER DISORDERS OF BILIRUBIN METABOLISM Status: Chronic Priority: Low Current Visit: No - Problem List Review Problem List Initiated/Reviewed/Updated: Yes - My Orders Last 24 Hours: My Active Orders 03/04/21 07:38 Consult to Case Management/Track Repair Supervisor [CONS] Routine - Assessment Assessment:: 03/03/2021 Pt is an 86 year old male with a hx of HTN who was brought to the ER due to weakness of legs and lightheadedness. Assessment and plan: Lightheadedness Weakness, legs Etilogies unknown, including but not limited to TIA/stroke, infection, dehydration, drug abuse Influenza A and B negative Covid negative CT of head negative (formal report pending) NIH score 0 in the ER UDS Lipid panel A1c PT/INR, PTT Carotid artery, US doppler Echo MRI brain aspirin and lipitor PT/OT/SP Atrial fibrillation on Xaelto Bradycardia, 56 in the ER Continue metoprolol 25mg daily Continue Xarelto 20mg daily HTN, uncontrolled HCTZ 12.5mg daily is on hold Continue metoprolol 25mg daily added amlodipine 2.5mg daily Hydralazine prn Dehydration 1L was given in the ER Continue IVF Hyperbilirubinemia, 1.4 in the ER Repeat Bilirubin and liver function in am Dementia Continue donepezil 5mg at bedtime DVT prophylaxis: Xarelto Disposition: observation 03/04/2021 86-year-old male admitted to the floor due to weakness in his lower extremities. CT scan in the ED showed senescent change and sinus disease but nothing acute. Patient was admitted to the floor for TIA/CVA work-up. Labs today show a WBC of 5.36. Hemoglobin is 11.3. Platelet 177,000. Neutrophils are normal at 55.5%. INR obtained yesterday evening was 1.07 with a PTT of 29.3. Magnesium yesterday was 2.2 and repeat troponin was less than 0.017. Sodium 144. Potassium 3.6. Chloride 105. Carbon dioxide 30. Anion gap is 12.6. BUN is 15. Creatinine 0.9. GFR greater than 60. Glucose 93. A1c was 5.4. Calcium 8.4. Total bilirubin 1.3. AST is 18, ALT 15, alkaline phosphatase 55. proBNP was 832. Protein is 5.9. Albumin 3.1. Lipid panel showed triglycerides of 47, cholesterol 125. LDL was 78. HDL was 38.0. B12 obtained yesterday was 326. Folate 13.8. Will take patient off continuous pulse oximetry today. MRI of the brain was obtained showing senescent change and minimal sinus findings which are likely chronic but no acute diffusion abnormality is seen. Patient will undergo carotid artery ultrasound and echocardiogram today. Consider discharge tomorrow pending results of testing. - Plan Plan:: Lightheadedness Lower extremity weakness * CVA/TIA work-up * MRI obtainedsenescent change and chronic sinus findings. Nothing acute. * Lipid panel -within normal limits * Obtain bilateral carotid artery ultrasound * Telemetry -history of A. fib but no acute concerns * Obtain echocardiogram * PT/OT * [employer] C[employer]TER evaluation * A1C - WNL * Started on 81 mg aspirin and 40 mg Lipitorcontinue Alzheimer's dementia * Continue home Aricept * Let patient sleep protocol A-fib Chronic anticoagulation * No acute concerns * Telemetry * Continue home Xarelto HTN (hypertension) * Poorly controlled * Hold home HCTZ * Started on 2.5 mg Norvasc * PCP follow-up Dehydration * Resolved * Discontinue IV fluids Hyperbilirubinemia * Monitor daily labs Code status: Full code PCP: Dr. Pepper DVT prophylaxis: Home Xarelto Social: Patient resides at home with his . Disposition: Patient will remain in observation status pending further work-up to rule out CVA/TIA. Likely discharge tomorrow pending imaging results. <Abdullahi Mann E - Last Filed: 03/04/21 14:24> - Patient Data Vitals - Most Recent: Last Vital Signs Temp 36.4 C 03/04/21 02:42 Pulse 64 03/04/21 08:54 Resp 17 03/04/21 02:42 BP 155/88 H 03/04/21 08:59 Pulse Ox 97 03/04/21 02:42 I&O - Last 24 Hours: Intake & Output 03/03/21 03/04/21 03/04/21 23:59 07:59 15:59 Intake Total 325 0 Output Total 600 Balance -275 0 Lab Results Last 24 Hours: Laboratory Results - last 24 hr 03/03/21 03/03/2103/03/21 Range/Units 18:47 19:40 19:40 WBC 6.13 (4.23-9.07) K/mm3 RBC 3.73 L (4.63-6.08) M/mm3 Hgb 11.4 L D (13.7-17.5) gm/dl Hct 35.8 L (40.1-51.0) % MCV 96.0 H (79.0-92.2) fl MCH 30.6 (25.7-32.2) pg MCHC 31.8 L (32.2-35.5) g/dl RDW Std Deviation 48.2 H (35.1-43.9) fL Plt Count 179 (163-337) K/mm3 MPV 9.7 (9.4-12.3) fl Neut % (Auto) 60.6 (34.0-67.9) % Lymph % (Auto) 24.6 (21.8-53.1) % [place] % (Auto) 10.0 (5.3-12.2) % Eos % (Auto) 4.1 (0.8-7.0) Baso % (Auto) 0.5 (0.1-1.2) % Neut # (Auto) 3.72 (1.78-5.38) K/mm3 Lymph # (Auto) 1.51 (1.32-3.57) K/mm3 [place] # (Auto) 0.61 (0.30-0.82) K/mm3 Eos # (Auto) 0.25 (0.04-0.54) K/mm3 Baso # (Auto) 0.03 (0.01-0.08) K/mm3 PT (9.7-12.0) SECONDS INR APTT (21.7-31.4) SECONDS Sodium 143 (136-145) mEq/L Potassium 3.9 (3.5-5.1) mEq/L Chloride 104 (98-107) mEq/L Carbon Dioxide 32 (21-32) mEq/L Anion Gap 10.9 (5-15) BUN 18 (7-18) mg/dL Creatinine 0.8 (0.7-1.3) mg/dL Est Cr Clr Drug Dosing 74.10 mL/min Estimated GFR (MDRD) > 60 (>60) mL/min BUN/Creatinine Ratio 22.5 H (14-18) Glucose 111 H (70-99) mg/dL Hemoglobin A1c ( - 5.6) % Calcium 8.1 L (8.5-10.1) mg/dL Magnesium (1.8-2.4) mg/dL Total Bilirubin 1.4 H (0.2-1.0) mg/dL AST 16 (15-37) U/L ALT 20 (16-63) U/L Alkaline Phosphatase 61 (46-116) U/L Troponin I < 0.017 (0.00-0.056) ng/mL NT-Pro-B Natriuret Pep (0-450) pg/mL Total Protein 6.2 L (6.4-8.2) g/dl Albumin 3.2 L (3.4-5.0) g/dl Globulin 3.0 gm/dL Albumin/Globulin Ratio 1.1 (1-2) Triglycerides (<150) mg/dL Cholesterol (<200) mg/dL LDL Cholesterol Direct (<100) mg/dL HDL Cholesterol (40-59) mg/dL Vitamin B12 (193-986) pg/ml Folate (8.6-58.9) ng/mL Urine Color (Yellow) Urine Appearance (Clear) Urine pH (5.0-8.0) Ur Specific [place] (1.005-1.030) Urine Protein (Negative) Urine Glucose (UA) (Negative) Urine Ketones (Negative) Urine Occult Blood (Negative) Urine Nitrite (Negative) Urine Bilirubin (Negative) Urine Urobilinogen (0.2-1.0) Ur Leukocyte Esterase (Negative) Influenza Type A RNA Negative (NEGATIVE) Influenza Type B RNA Negative (NEGATIVE) SARS-CoV-2 RNA (HOWARD) Negative (NEGATIVE) 03/03/21 03/03/21 03/03/21 Range/Units 19:40 19:42 23:19 WBC (4.23-9.07) K/mm3 RBC (4.63-6.08) M/mm3 Hgb (13.7-17.5) gm/dl Hct (40.1-51.0) % MCV (79.0-92.2) fl MCH (25.7-32.2) pg MCHC (32.2-35.5) g/dl RDW Std Deviation (35.1-43.9) fL Plt Count (163-337) K/mm3 MPV (9.4-12.3) fl Neut % (Auto) (34.0-67.9) % Lymph % (Auto) (21.8-53.1) % [place] % (Auto) (5.3-12.2) % Eos % (Auto) (0.8-7.0) Baso % (Auto) (0.1-1.2) % Neut # (Auto) (1.78-5.38) K/mm3 Lymph # (Auto) (1.32-3.57) K/mm3 [place] # (Auto) (0.30-0.82) K/mm3 Eos # (Auto) (0.04-0.54) K/mm3 Baso # (Auto) (0.01-0.08) K/mm3 PT 11.8 (9.7-12.0) SECONDS INR 1.07 APTT 29.3 (21.7-31.4) SECONDS Sodium (136-145) mEq/L Potassium (3.5-5.1) mEq/L Chloride (98-107) mEq/L Carbon Dioxide (21-32) mEq/L Anion Gap (5-15) BUN (7-18) mg/dL Creatinine (0.7-1.3) mg/dL Est Cr Clr Drug Dosing mL/min Estimated GFR (MDRD) (>60) mL/min BUN/Creatinine Ratio (14-18) Glucose (70-99) mg/dL Hemoglobin A1c ( - 5.6) % Calcium (8.5-10.1) mg/dL Magnesium (1.8-2.4) mg/dL Total Bilirubin (0.2-1.0) mg/dL AST (15-37) U/L ALT (16-63) U/L Alkaline Phosphatase (46-116) U/L Troponin I (0.00-0.056) ng/mL NT-Pro-B Natriuret Pep (0-450) pg/mL Total Protein (6.4-8.2) g/dl Albumin (3.4-5.0) g/dl Globulin gm/dL Albumin/Globulin Ratio (1-2) Triglycerides (<150) mg/dL Cholesterol (<200) mg/dL LDL Cholesterol Direct (<100) mg/dL HDL Cholesterol (40-59) mg/dL Vitamin B12 326 (193-986) pg/ml Folate 13.8 (8.6-58.9) ng/mL Urine Color Yellow (Yellow) Urine Appearance Clear (Clear) Urine pH 7.0 (5.0-8.0) Ur Specific [place] 1.020 (1.005-1.030) Urine Protein Negative (Negative) Urine Glucose (UA) Negative (Negative) Urine Ketones Negative (Negative) Urine Occult Blood Negative (Negative) Urine Nitrite Negative (Negative) Urine Bilirubin Negative (Negative) Urine Urobilinogen 2.0 H (0.2-1.0) Ur Leukocyte Esterase Negative (Negative) Influenza Type A RNA (NEGATIVE) Influenza Type B RNA (NEGATIVE) SARS-CoV-2 RNA (HOWARD) (NEGATIVE) 03/03/21 03/04/21 03/04/21 Range/Units 23:19 05:10 05:10 WBC 5.36 (4.23-9.07) K/mm3 RBC 3.71 L (4.63-6.08) M/mm3 Hgb 11.3 L (13.7-17.5) gm/dl Hct 35.7 L (40.1-51.0) % MCV 96.2 H (79.0-92.2) fl MCH 30.5 (25.7-32.2) pg MCHC 31.7 L (32.2-35.5) g/dl RDW Std Deviation 48.0 H (35.1-43.9) fL Plt Count 177 (163-337) K/mm3 MPV 10.1 (9.4-12.3) fl Neut % (Auto) 55.5 (34.0-67.9) % Lymph % (Auto) 26.3 (21.8-53.1) % [place] % (Auto) 11.4 (5.3-12.2) % Eos % (Auto) 6.0 (0.8-7.0) Baso % (Auto) 0.6 (0.1-1.2) % Neut # (Auto) 2.98 (1.78-5.38) K/mm3 Lymph # (Auto) 1.41 (1.32-3.57) K/mm3 [place] # (Auto) 0.61 (0.30-0.82) K/mm3 Eos # (Auto) 0.32 (0.04-0.54) K/mm3 Baso # (Auto) 0.03 (0.01-0.08) K/mm3 PT (9.7-12.0) SECONDS INR APTT (21.7-31.4) SECONDS Sodium 144 (136-145) mEq/L Potassium 3.6 (3.5-5.1) mEq/L Chloride 105 (98-107) mEq/L Carbon Dioxide 30 (21-32) mEq/L Anion Gap 12.6 (5-15) BUN 15 (7-18) mg/dL Creatinine 0.9 (0.7-1.3) mg/dL Est Cr Clr Drug Dosing 63.91 mL/min Estimated GFR (MDRD) > 60 (>60) mL/min BUN/Creatinine Ratio 16.7 (14-18) Glucose 93 (70-99) mg/dL Hemoglobin A1c ( - 5.6) % Calcium 8.4 L (8.5-10.1) mg/dL Magnesium 2.2 (1.8-2.4) mg/dL Total Bilirubin 1.3 H (0.2-1.0) mg/dL AST 18 (15-37) U/L ALT 15 L (16-63) U/L Alkaline Phosphatase 55 (46-116) U/L Troponin I < 0.017 (0.00-0.056) ng/mL NT-Pro-B Natriuret Pep (0-450) pg/mL Total Protein 5.9 L (6.4-8.2) g/dl Albumin 3.1 L (3.4-5.0) g/dl Globulin 2.8 gm/dL Albumin/Globulin Ratio 1.1 (1-2) Triglycerides 47 (<150) mg/dL Cholesterol 125 (<200) mg/dL LDL Cholesterol Direct 78 (<100) mg/dL HDL Cholesterol 38.0 L (40-59) mg/dL Vitamin B12 (193-986) pg/ml Folate (8.6-58.9) ng/mL Urine Color (Yellow) Urine Appearance (Clear) Urine pH (5.0-8.0) Ur Specific [place] (1.005-1.030) Urine Protein (Negative) Urine Glucose (UA) (Negative) Urine Ketones (Negative) Urine Occult Blood (Negative) Urine Nitrite (Negative) Urine Bilirubin (Negative) Urine Urobilinogen (0.2-1.0) Ur Leukocyte Esterase (Negative) Influenza Type A RNA (NEGATIVE) Influenza Type B RNA (NEGATIVE) SARS-CoV-2 RNA (HOWARD) (NEGATIVE) 03/04/21 03/04/21 Range/Units 05:10 05:10 WBC (4.23-9.07) K/mm3 RBC (4.63-6.08) M/mm3 Hgb (13.7-17.5) gm/dl Hct (40.1-51.0) % MCV (79.0-92.2) fl MCH (25.7-32.2) pg MCHC (32.2-35.5) g/dl RDW Std Deviation (35.1-43.9) fL Plt Count (163-337) K/mm3 MPV (9.4-12.3) fl Neut % (Auto) (34.0-67.9) % Lymph % (Auto) (21.8-53.1) % [place] % (Auto) (5.3-12.2) % Eos % (Auto) (0.8-7.0) Baso % (Auto) (0.1-1.2) % Neut # (Auto) (1.78-5.38) K/mm3 Lymph # (Auto) (1.32-3.57) K/mm3 [place] # (Auto) (0.30-0.82) K/mm3 Eos # (Auto) (0.04-0.54) K/mm3 Baso # (Auto) (0.01-0.08) K/mm3 PT (9.7-12.0) SECONDS INR APTT (21.7-31.4) SECONDS Sodium (136-145) mEq/L Potassium (3.5-5.1) mEq/L Chloride (98-107) mEq/L Carbon Dioxide (21-32) mEq/L Anion Gap (5-15) BUN (7-18) mg/dL Creatinine (0.7-1.3) mg/dL Est Cr Clr Drug Dosing mL/min Estimated GFR (MDRD) (>60) mL/min BUN/Creatinine Ratio (14-18) Glucose (70-99) mg/dL Hemoglobin A1c 5.4 ( - 5.6) % Calcium (8.5-10.1) mg/dL Magnesium (1.8-2.4) mg/dL Total Bilirubin (0.2-1.0) mg/dL AST (15-37) U/L ALT (16-63) U/L Alkaline Phosphatase (46-116) U/L Troponin I (0.00-0.056) ng/mL NT-Pro-B Natriuret Pep 832 H (0-450) pg/mL Total Protein (6.4-8.2) g/dl Albumin (3.4-5.0) g/dl Globulin gm/dL Albumin/Globulin Ratio (1-2) Triglycerides (<150) mg/dL Cholesterol (<200) mg/dL LDL Cholesterol Direct (<100) mg/dL HDL Cholesterol (40-59) mg/dL Vitamin B12 (193-986) pg/ml Folate (8.6-58.9) ng/mL Urine Color (Yellow) Urine Appearance (Clear) Urine pH (5.0-8.0) Ur Specific [place] (1.005-1.030) Urine Protein (Negative) Urine Glucose (UA) (Negative) Urine Ketones (Negative) Urine Occult Blood (Negative) Urine Nitrite (Negative) Urine Bilirubin (Negative) Urine Urobilinogen (0.2-1.0) Ur Leukocyte Esterase (Negative) Influenza Type A RNA (NEGATIVE) Influenza Type B RNA (NEGATIVE) SARS-CoV-2 RNA (HOWARD) (NEGATIVE) Med Orders - Current: Current Medications Acetaminophen (Acetaminophen 325 Mg Tab) 650 mg PO Q6H PRN PRN Reason: Pain (Mild 1-3)/fever Albuterol/Ipratropium (Albuterol/Ipratropium 3.0-0.5 Mg/3 Ml Neb Soln) 3 ml NEB Q4H PRN PRN Reason: Shortness Of Breath/wheezing Amlodipine Besylate (Amlodipine 5 Mg Tab) 2.5 mg PO DAILY [facility] Last Admin: 03/04/21 08:59 Dose: 2.5 mg Documented by: Aspirin (Aspirin 81 Mg Tab.Ec) 81 mg PO DAILY [facility] Last Admin: 03/04/21 08:54 Dose: 81 mg Documented by: Atorvastatin Calcium (Atorvastatin 40 Mg Tab) 40 mg PO BEDTIME [facility] Citalopram Hydrobromide (Citalopram 20 Mg Tab Ptom) 20 mg PO DAILY [facility] Donepezil HCl (Donepezil 10 Mg Tab) 5 mg PO BEDTIME [facility] Finasteride (Finasteride 5 Mg Tab Ptom) 5 mg PO DAILY [facility] Hydralazine HCl (Hydralazine 20 Mg/Ml Sdv) 10 mg IVPUSH Q4H PRN PRN Reason: Hypertension Latanoprost (Latanoprost 0.005% Ophth Soln 2.5 Ml Bottle Ptom) 0 ml EYEBOTH DAILY [facility] Metoprolol Succinate (Metoprolol Succinate 25 Mg Tab.Er Ptom) 25 mg PO DAILY [facility] Morphine Sulfate (Morphine 2 Mg/Ml Syringe) 2 mg IVPUSH Q4H PRN PRN Reason: Pain (severe 7-10) Stop: 03/04/21 23:01 Ondansetron HCl (Ondansetron 4 Mg/2 Ml Sdv) 4 mg IV Q6H PRN PRN Reason: Nausea/Vomiting Oxycodone HCl (Oxycodone 5 Mg Tab) 5 mg PO Q4H PRN PRN Reason: Pain (moderate 4-6) Brimonidine Tartrate (0.2% Opth Ptom) 0 each EYEBOTH BID [facility] Rivaroxaban (Rivaroxaban 10 Mg Tab) 20 mg PO DAILY [facility] Last Admin: 03/04/21 08:54 Dose: 20 mg Documented by: Tamsulosin HCl (Tamsulosin 0.4 Mg Cap.Er) 0.4 mg PO BEDTIME [facility] Timolol Maleate (Timolol Maleate 0.5% Ophth Soln Ptom) 0 ml EYEBOTH BID [facility] Discontinued Medications Citalopram Hydrobromide (Citalopram 10 Mg Tab) 10 mg PO DAILY [facility] Last Admin: 03/04/21 08:59 Dose: 10 mg Documented by: Finasteride (Finasteride 5 Mg Tab) 5 mg PO DAILY [facility] Last Admin: 03/04/21 08:59 Dose: 5 mg Documented by: Hydrochlorothiazide (Hydrochlorothiazide 12.5 Mg Cap) 12.5 mg PO DAILY [facility] Lactated Ringer's (Ringers, Lactated) 1,000 mls @ 1,000 mls/hr IV .BOLUS ONE Stop: 03/03/21 20:27 Last Admin: 03/03/21 20:00 Dose: 1,000 mls/hr Documented by: Lactated Ringer's (Ringers, Lactated) 1,000 mls @ 65 mls/hr IV ASDIRECTED KI Last Admin: 03/03/21 23:45 Dose: 65 mls/hr Documented by: Metoprolol Succinate (Metoprolol Succinate 25 Mg Tab.Er) 25 mg PO DAILY [facility] Last Admin: 03/04/21 08:54 Dose: 25 mg Documented by: Non-Formulary Medication (Triamcinolone Acetonide) 1 applic TOP ASDIRECTED [facility] Brimonidine Tartrate (15 Ml Bottle) 0 each EYEBOTH ASDIRECTED KI - Patient Data Lab Results Last 24 hrs: Laboratory Results - last 24 hr 03/03/21 03/03/21 03/03/21 Range/Units 18:47 19:40 19:40 WBC 6.13 (4.23-9.07) K/mm3 RBC 3.73 L (4.63-6.08) M/mm3 Hgb 11.4 L D (13.7-17.5) gm/dl Hct 35.8 L (40.1-51.0) % MCV 96.0 H (79.0-92.2) fl MCH 30.6 (25.7-32.2) pg MCHC 31.8 L (32.2-35.5) g/dl RDW Std Deviation 48.2 H (35.1-43.9) fL Plt Count 179 (163-337) K/mm3 MPV 9.7 (9.4-12.3) fl Neut % (Auto) 60.6 (34.0-67.9) % Lymph % (Auto) 24.6 (21.8-53.1) % [place] % (Auto) 10.0 (5.3-12.2) % Eos % (Auto) 4.1 (0.8-7.0) Baso % (Auto) 0.5 (0.1-1.2) % Neut # (Auto) 3.72 (1.78-5.38) K/mm3 Lymph # (Auto) 1.51 (1.32-3.57) K/mm3 [place] # (Auto) 0.61 (0.30-0.82) K/mm3 Eos # (Auto) 0.25 (0.04-0.54) K/mm3 Baso # (Auto) 0.03 (0.01-0.08) K/mm3 PT (9.7-12.0) SECONDS INR APTT (21.7-31.4) SECONDS Sodium 143 (136-145) mEq/L Potassium 3.9 (3.5-5.1) mEq/L Chloride 104 (98-107) mEq/L Carbon Dioxide 32 (21-32) mEq/L Anion Gap 10.9 (5-15) BUN 18 (7-18) mg/dL Creatinine 0.8 (0.7-1.3) mg/dL Est Cr Clr Drug Dosing 74.10 mL/min Estimated GFR (MDRD) > 60 (>60) mL/min BUN/Creatinine Ratio 22.5 H (14-18) Glucose 111 H (70-99) mg/dL Hemoglobin A1c ( - 5.6) % Calcium 8.1 L (8.5-10.1) mg/dL Magnesium (1.8-2.4) mg/dL Total Bilirubin 1.4 H (0.2-1.0) mg/dL AST 16 (15-37) U/L ALT 20 (16-63) U/L Alkaline Phosphatase 61 (46-116) U/L Troponin I < 0.017 (0.00-0.056) ng/mL NT-Pro-B Natriuret Pep (0-450) pg/mL Total Protein 6.2 L (6.4-8.2) g/dl Albumin 3.2 L (3.4-5.0) g/dl Globulin 3.0 gm/dL Albumin/Globulin Ratio 1.1 (1-2) Triglycerides (<150) mg/dL Cholesterol (<200) mg/dL LDL Cholesterol Direct (<100) mg/dL HDL Cholesterol (40-59) mg/dL Vitamin B12 (193-986) pg/ml Folate (8.6-58.9) ng/mL Urine Color (Yellow) Urine Appearance (Clear) Urine pH (5.0-8.0) Ur Specific [place] (1.005-1.030) Urine Protein (Negative) Urine Glucose (UA) (Negative) Urine Ketones (Negative) Urine Occult Blood (Negative) Urine Nitrite (Negative) Urine Bilirubin (Negative) Urine Urobilinogen (0.2-1.0) Ur Leukocyte Esterase (Negative) Influenza Type A RNA Negative (NEGATIVE) Influenza Type B RNA Negative (NEGATIVE) SARS-CoV-2 RNA (HOWARD) Negative (NEGATIVE) 03/03/21 03/03/21 03/03/21 Range/Units 19:40 19:42 23:19 WBC (4.23-9.07) K/mm3 RBC (4.63-6.08) M/mm3 Hgb (13.7-17.5) gm/dl Hct (40.1-51.0) % MCV (79.0-92.2) fl MCH (25.7-32.2) pg MCHC (32.2-35.5) g/dl RDW Std Deviation (35.1-43.9) fL Plt Count (163-337) K/mm3 MPV (9.4-12.3) fl Neut % (Auto) (34.0-67.9) % Lymph % (Auto) (21.8-53.1) % [place] % (Auto) (5.3-12.2) % Eos % (Auto) (0.8-7.0) Baso % (Auto) (0.1-1.2) % Neut # (Auto) (1.78-5.38) K/mm3 Lymph # (Auto) (1.32-3.57) K/mm3 [place] # (Auto) (0.30-0.82) K/mm3 Eos # (Auto) (0.04-0.54) K/mm3 Baso # (Auto) (0.01-0.08) K/mm3 PT 11.8 (9.7-12.0) SECONDS INR 1.07 APTT 29.3 (21.7-31.4) SECONDS Sodium (136-145) mEq/L Potassium (3.5-5.1) mEq/L Chloride (98-107) mEq/L Carbon Dioxide (21-32) mEq/L Anion Gap (5-15) BUN (7-18) mg/dL Creatinine (0.7-1.3) mg/dL Est Cr Clr Drug Dosing mL/min Estimated GFR (MDRD) (>60) mL/min BUN/Creatinine Ratio (14-18) Glucose (70-99) mg/dL Hemoglobin A1c ( - 5.6) % Calcium (8.5-10.1) mg/dL Magnesium (1.8-2.4) mg/dL Total Bilirubin (0.2-1.0) mg/dL AST (15-37) U/L ALT (16-63) U/L Alkaline Phosphatase (46-116) U/L Troponin I (0.00-0.056) ng/mL NT-Pro-B Natriuret Pep (0-450) pg/mL Total Protein (6.4-8.2) g/dl Albumin (3.4-5.0) g/dl Globulin gm/dL Albumin/Globulin Ratio (1-2) Triglycerides (<150) mg/dL Cholesterol (<200) mg/dL LDL Cholesterol Direct (<100) mg/dL HDL Cholesterol (40-59) mg/dL Vitamin B12 326 (193-986) pg/ml Folate 13.8 (8.6-58.9) ng/mL Urine Color Yellow (Yellow) Urine Appearance Clear (Clear) Urine pH 7.0 (5.0-8.0) Ur Specific [place] 1.020 (1.005-1.030) Urine Protein Negative (Negative) Urine Glucose (UA) Negative (Negative) Urine Ketones Negative (Negative) Urine Occult Blood Negative (Negative) Urine Nitrite Negative (Negative) Urine Bilirubin Negative (Negative) Urine Urobilinogen 2.0 H (0.2-1.0) Ur Leukocyte Esterase Negative (Negative) Influenza Type A RNA (NEGATIVE) Influenza Type B RNA (NEGATIVE) SARS-CoV-2 RNA (HOWARD) (NEGATIVE) 03/03/21 03/04/21 03/04/21 Range/Units 23:19 05:10 05:10 WBC 5.36 (4.23-9.07) K/mm3 RBC 3.71 L (4.63-6.08) M/mm3 Hgb 11.3 L (13.7-17.5) gm/dl Hct 35.7 L (40.1-51.0) % MCV 96.2 H (79.0-92.2) fl MCH 30.5 (25.7-32.2) pg MCHC 31.7 L (32.2-35.5) g/dl RDW Std Deviation 48.0 H (35.1-43.9) fL Plt Count 177 (163-337) K/mm3 MPV 10.1 (9.4-12.3) fl Neut % (Auto) 55.5 (34.0-67.9) % Lymph % (Auto) 26.3 (21.8-53.1) % [place] % (Auto) 11.4 (5.3-12.2) % Eos % (Auto) 6.0 (0.8-7.0) Baso % (Auto) 0.6 (0.1-1.2) % Neut # (Auto) 2.98 (1.78-5.38) K/mm3 Lymph # (Auto) 1.41 (1.32-3.57) K/mm3 [place] # (Auto) 0.61 (0.30-0.82) K/mm3 Eos # (Auto) 0.32 (0.04-0.54) K/mm3 Baso # (Auto) 0.03 (0.01-0.08) K/mm3 PT (9.7-12.0) SECONDS INR APTT (21.7-31.4) SECONDS Sodium 144 (136-145) mEq/L Potassium 3.6 (3.5-5.1) mEq/L Chloride 105 (98-107) mEq/L Carbon Dioxide 30 (21-32) mEq/L Anion Gap 12.6 (5-15) BUN 15 (7-18) mg/dL Creatinine 0.9 (0.7-1.3) mg/dL Est Cr Clr Drug Dosing 63.91 mL/min Estimated GFR (MDRD) > 60 (>60) mL/min BUN/Creatinine Ratio 16.7 (14-18) Glucose 93 (70-99) mg/dL Hemoglobin A1c ( - 5.6) % Calcium 8.4 L (8.5-10.1) mg/dL Magnesium 2.2 (1.8-2.4) mg/dL Total Bilirubin 1.3 H (0.2-1.0) mg/dL AST 18 (15-37) U/L ALT 15 L (16-63) U/L Alkaline Phosphatase 55 (46-116) U/L Troponin I < 0.017 (0.00-0.056) ng/mL NT-Pro-B Natriuret Pep (0-450) pg/mL Total Protein 5.9 L (6.4-8.2) g/dl Albumin 3.1 L (3.4-5.0) g/dl Globulin 2.8 gm/dL Albumin/Globulin Ratio 1.1 (1-2) Triglycerides 47 (<150) mg/dL Cholesterol 125 (<200) mg/dL LDL Cholesterol Direct 78 (<100) mg/dL HDL Cholesterol 38.0 L (40-59) mg/dL Vitamin B12 (193-986) pg/ml Folate (8.6-58.9) ng/mL Urine Color (Yellow) Urine Appearance (Clear) Urine pH (5.0-8.0) Ur Specific [place] (1.005-1.030) Urine Protein (Negative) Urine Glucose (UA) (Negative) Urine Ketones (Negative) Urine Occult Blood (Negative) Urine Nitrite (Negative) Urine Bilirubin (Negative) Urine Urobilinogen (0.2-1.0) Ur Leukocyte Esterase (Negative) Influenza Type A RNA (NEGATIVE) Influenza Type B RNA (NEGATIVE) SARS-CoV-2 RNA (HOWARD) (NEGATIVE) 03/04/21 03/04/21 Range/Units 05:10 05:10 WBC (4.23-9.07) K/mm3 RBC (4.63-6.08) M/mm3 Hgb (13.7-17.5) gm/dl Hct (40.1-51.0) % MCV (79.0-92.2) fl MCH (25.7-32.2) pg MCHC (32.2-35.5) g/dl RDW Std Deviation (35.1-43.9) fL Plt Count (163-337) K/mm3 MPV (9.4-12.3) fl Neut % (Auto) (34.0-67.9) % Lymph % (Auto) (21.8-53.1) % [place] % (Auto) (5.3-12.2) % Eos % (Auto) (0.8-7.0) Baso % (Auto) (0.1-1.2) % Neut # (Auto) (1.78-5.38) K/mm3 Lymph # (Auto) (1.32-3.57) K/mm3 [place] # (Auto) (0.30-0.82) K/mm3 Eos # (Auto) (0.04-0.54) K/mm3 Baso # (Auto) (0.01-0.08) K/mm3 PT (9.7-12.0) SECONDS INR APTT (21.7-31.4) SECONDS Sodium (136-145) mEq/L Potassium (3.5-5.1) mEq/L Chloride (98-107) mEq/L Carbon Dioxide (21-32) mEq/L Anion Gap (5-15) BUN (7-18) mg/dL Creatinine (0.7-1.3) mg/dL Est Cr Clr Drug Dosing mL/min Estimated GFR (MDRD) (>60) mL/min BUN/Creatinine Ratio (14-18) Glucose (70-99) mg/dL Hemoglobin A1c 5.4 ( - 5.6) % Calcium (8.5-10.1) mg/dL Magnesium (1.8-2.4) mg/dL Total Bilirubin (0.2-1.0) mg/dL AST (15-37) U/L ALT (16-63) U/L Alkaline Phosphatase (46-116) U/L Troponin I (0.00-0.056) ng/mL NT-Pro-B Natriuret Pep 832 H (0-450) pg/mL Total Protein (6.4-8.2) g/dl Albumin (3.4-5.0) g/dl Globulin gm/dL Albumin/Globulin Ratio (1-2) Triglycerides (<150) mg/dL Cholesterol (<200) mg/dL LDL Cholesterol Direct (<100) mg/dL HDL Cholesterol (40-59) mg/dL Vitamin B12 (193-986) pg/ml Folate (8.6-58.9) ng/mL Urine Color (Yellow) Urine Appearance (Clear) Urine pH (5.0-8.0) Ur Specific [place] (1.005-1.030) Urine Protein (Negative) Urine Glucose (UA) (Negative) Urine Ketones (Negative) Urine Occult Blood (Negative) Urine Nitrite (Negative) Urine Bilirubin (Negative) Urine Urobilinogen (0.2-1.0) Ur Leukocyte Esterase (Negative) Influenza Type A RNA (NEGATIVE) Influenza Type B RNA (NEGATIVE) SARS-CoV-2 RNA (HOWARD) (NEGATIVE) Result Diagrams: 03/04/21 05:10 03/04/21 05:10 Sepsis Event Note - Focused Exam Vital Signs: Vital Signs Temp Pulse Resp BP Pulse Ox 03/04/21 08:59 155/88 H 03/04/21 08:54 64 155/88 H 03/04/21 02:42 36.4 C 55 L 17 136/80 97
[2021-03-04] MEDS: Aspirin 81 MG Tab.EC PO SCH (08:54)
[2021-03-04] MEDS: amLODIPine 5 MG Tab PO SCH (08:59)
[2021-03-04] MEDS ORDERED: Metoprolol Succinate 25 MG Tab.ER PO SCH (09:00)
[2021-03-04] MEDS ORDERED: Rivaroxaban 10 MG Tab PO SCH (09:00)
[2021-03-04] MEDS ORDERED: Finasteride 5 MG Tab PO SCH (09:00)
[2021-03-04] MEDS ORDERED: Citalopram 10 MG Tab PO SCH (09:00)
--- NOTE | 2021-03-04 09:01 | MR ---
MRI brain Technique: Multiple T1 sagittal; T2, T2 FLAIR, T1 and diffusion axial; T1 coronal and T2 gradient echo coronal was also obtained of the brain. Comparison: Prior head CT study of 03/03/21. Findings: Ventricles along with basal cisterns and sulci over the convexities are prominent. Scattered areas of increased signal are seen within the periventricular and subcortical white matter which is compatible with small vessel ischemic demyelination change. No other abnormal parenchymal densities are seen. No midline shift or mass-effect is seen. Diffusion images were obtained. No acute diffusion abnormalities are seen. Mild mucosal thickening is seen within the ethmoid sinuses which is stable from prior head CT study. Impression: 1. Senescent change as noted above. 2. Minimal sinus findings which most likely are chronic. 3. No acute diffusion abnormality is seen. Diagnostic code #2
--- NOTE | 2021-03-04 10:18 | CT ---
Head CT Technique: Multiple axial sections through the brain were obtained. Intravenous contrast was not utilized. Reconstructed coronal and sagittal images were obtained. Comparison: Prior head CT study of 08/29/12. Findings: Ventricles along with basal cisterns and sulci over the convexities are prominent. Diffuse diminished density is noted within the periventricular and subcortical white matter which is compatible with small vessel ischemic demyelination change. No other abnormal parenchymal densities are seen. No evidence of intracranial hemorrhage. No midline shift or mass-effect is seen. Atherosclerotic calcification is seen within the vertebral vessels and within the carotid siphon. Bone window settings were reviewed which show no acute calvarial abnormality. Mild mucosal thickening is seen within the ethmoid and frontal sinuses which is most likely chronic. No acute mastoid sinus findings are seen. Impression: 1. Senescent change as noted above. 2. Sinus disease most likely representing mild chronic sinusitis. 3. No acute intracranial abnormality is appreciated. Diagnostic code #2 I agree with preliminary report from [facility], finalized on 03/03/21, 11:07 PM [employer], code 1
[2021-03-04] MEDS ORDERED: TRIAMCINOLONE 0.1% TOP PRN (14:25)
--- NOTE | 2021-03-04 17:46 | US ---
Carotid ultrasound: Duplex and color doppler evaluation was performed of the carotid and vertebral arteries. Comparison: Previous carotid ultrasound of 11/14/13. Findings: Plaque: Mild amount of plaque is noted within both carotid bulbs. Plaque is homogeneous and show smooth surface margins. Velocity measurements: Right side: CCA has a peak systolic velocity of 0.87 m/s. ICA has a peak systolic velocity of 0.64 m/s and peak end-diastolic velocity of 0.18 m/s. ECA has a peak systolic velocity of 0.96 m/s. Vertebral artery has a peak systolic velocity of 0.34 m/s. ICA/CCA ratio is 0.7. Left side: CCA has a peak systolic velocity of 0.78 m/s. ICA has a peak systolic velocity of 0.69 m/s and peak end-diastolic velocity of 0.32 m/s. ECA has a peak systolic velocity of 0.70 m/s. Vertebral artery has a peak systolic velocity of 0.39 m/s. ICA/CCA ratio is 0.7. Impression: 1. Mild amount of plaque showing smooth surface characteristics within both carotid bulbs. 2. Velocity measurements within both internal carotid arteries correspond to stenosis in the range of 1-49 percent. 3. Antegrade flow is seen within both vertebral arteries. Diagnostic code #2
[2021-03-04] MEDS: OPTH EYEBOTH SCH ×2 (20:29→20:33)
[2021-03-04] MEDS: BRIMONIDINE TARTRATE 0.2% EYEBOTH SCH ×2 (20:29→20:33)
[2021-03-04] MEDS: TIMOLOL MALEATE 0.5% EYEBOTH SCH ×2 (20:29→20:33)
[2021-03-04] MEDS ORDERED: Donepezil 10 MG Tab PO SCH (21:00)
[2021-03-04] MEDS ORDERED: Tamsulosin 0.4 MG Cap.ER **PTOM PO SCH (21:00)
[2021-03-04] MEDS ORDERED: Tamsulosin 0.4 MG Cap.ER PO SCH (21:00)
[2021-03-04] MEDS ORDERED: atorvaSTATin 40 MG Tab PO SCH (21:00)
[2021-03-04] MEDS ORDERED: DONEPEZIL 10 MG PO SCH (21:00)
[2021-03-05] MEDS ORDERED: Metoprolol Succinate 25 MG Tab.ER **PTOM PO SCH (09:00)
[2021-03-05] MEDS ORDERED: XARELTO 20 MG PO SCH ×2 (09:00→17:00)
[2021-03-05] MEDS ORDERED: Hydrochlorothiazide 12.5 MG Cap PO SCH (09:00)
[2021-03-05] MEDS ORDERED: amLODIPine 2.5 MG Tab PO SCH (09:00)
[2021-03-05] MEDS ORDERED: CITALOPRAM 20 MG PO SCH (09:00)
[2021-03-05] MEDS ORDERED: Latanoprost 0.005% Ophth Soln 2.5 ML Bottle **PTOM EYEBOTH SCH (09:00)
[2021-03-05] MEDS ORDERED: Finasteride 5 MG Tab **PTOM PO SCH (09:00)
[2021-03-05] MEDS: Aspirin 81 MG Tab.EC PO SCH (10:10)
[2021-03-05] MEDS: TIMOLOL MALEATE 0.5% EYEBOTH SCH (10:21)
[2021-03-05] MEDS: BRIMONIDINE TARTRATE 0.2% EYEBOTH SCH (10:25)
[2021-03-05] MEDS: OPTH EYEBOTH SCH (10:25)
[2021-03-05 13:06] VITALS: BP 112/66; PULSE 61
--- NOTE | 2021-03-05 13:07 | PCM.DCSUM1 ---
Discharge Summary - Hospital Course HPI Initial Comments: Pt is an 86 year old male with a hx of HTN who was brought to the ER due to weakness of legs and lightheadedness. As per pt and ER provider, pt started to feel weak in his both legs this evening, causing difficulty walking. He also complains of highhandedness. He shoveled snow this morning but at that time he did not have chest pain, sob or palpitation. He has not been drinking and eating well today. He otherwise denies headache, chest pain, sob, abd pain, n/v/d, fever or chills. Denies hearing loss, tinnitus, or ear pain. In the ER, NIH score zero. His BP was not controlled. CT of head negative for acute change. Diagnosis: Stroke: No - Discharge Data Discharge Date: 03/05/21 (Admit date: 03/03/2021) Discharge Disposition: Home, Self-Care 01 Condition: Stable - Referral to Home Health Primary Care Physician: Trevor Pepper MD - Discharge Diagnosis/Problem(s) (1) Lightheadedness SNOMED Code(s): 218331915 ICD Code: R42 - DIZZINESS AND GIDDINESS Status: Resolved Priority: High Current Visit: Yes (2) Lower extremity weakness SNOMED Code(s): 163614814, 604727256 ICD Code: R29.898 - OTH SYMPTOMS AND SIGNS INVOLVING THE MUSCULOSKELETAL SYSTEM Status: Resolved Priority: High Current Visit: Yes Qualifiers: Laterality: bilateral Qualified Code(s): R29.898 - Other symptoms and signs involving the musculoskeletal system (3) Alzheimer's dementia SNOMED Code(s): 97744404 ICD Code: G30.9 - ALZHEIMER'S DISEASE, UNSPECIFIED; F02.80 - DEMENTIA IN OTH DISEASES CLASSD ELSWHR W/O BEHAVRL DISTURB Status: Chronic Priority: Medium Current Visit: Yes Qualifiers: Alzheimer's disease onset: unspecified onset Dementia behavioral disturbance: without behavioral disturbance Qualified Code(s): G30.9 - Alzheimer's disease, unspecified; F02.80 - Dementia in other diseases classified elsewhere without behavioral disturbance (4) A-fib SNOMED Code(s): 86784593 ICD Code: I48.91 - UNSPECIFIED ATRIAL FIBRILLATION Status: Chronic Priority: Low Current Visit: No Qualifiers: Atrial fibrillation type: unspecified Qualified Code(s): I48.91 - Unspecified atrial fibrillation (5) Chronic anticoagulation SNOMED Code(s): 386572847 ICD Code: Z79.01 - DIRECTOR OF KNOWLEDGE MANAGEMENT (CURRENT) USE OF ANTICOAGULANTS Status: Chronic Priority: Low Current Visit: No (6) HTN (hypertension) SNOMED Code(s): 06235791 ICD Code: I10 - ESSENTIAL (PRIMARY) HYPERTENSION Status: Chronic Priority: Medium Current Visit: Yes Qualifiers: Hypertension type: unspecified Qualified Code(s): I10 - Essential (primary) hypertension (7) Dehydration SNOMED Code(s): 34901676 ICD Code: E86.0 - DEHYDRATION Status: Resolved Priority: High Current Visit: Yes (8) Hyperbilirubinemia SNOMED Code(s): 39635196 ICD Code: E80.6 - OTHER DISORDERS OF BILIRUBIN METABOLISM Status: Chronic Priority: Low Current Visit: No (9) TIA (transient ischemic attack) SNOMED Code(s): 862564517 ICD Code: G45.9 - TRANSIENT CEREBRAL ISCHEMIC ATTACK, UNSPECIFIED Status: Resolved Priority: High Current Visit: Yes - Patient Summary/Data Consults: Consultations 03/03/21 22:57 OT Evaluation and Treatment [CONS] Routine PT Evaluation and Treatment [CONS] Routine TREE EXPERT Evaluation and Treatment [CONS] Routine 03/04/21 07:38 Consult to Case Management/Community Case Manager [CONS] Routine Labs Pending at D/C: Echocardiogram outstanding and will be forwarded to PCP. Recommended Follow-up Testing/Procedures: Follow-up with primary care provider within 5 to 7 days of discharge, sooner if needed. * Patient started on daily aspirin and statin due to suspected TIA. * Instructed to take his blood pressure twice daily and record this in a journal. Please review this journal. * All home medications continued * Recommend repeat CBC, CMP, and magnesium in follow-up. Hospital Course: This is an 86-year-old male who presented to ED on 03/03/2021 with lower extremity weakness and lightheadedness. Head CT was obtained and showed sinus disease likely representing mild chronic sinusitis and senescent change but no acute intracranial abnormality. Patient was started on daily 81 mg aspirin and 40 mg of Lipitor brain MRI was obtained and shows minimal sinus findings which are likely chronic and senescent change but no acute diffusion abnormality. Carotid artery ultrasound was obtained and shows mild amount of plaque showing smooth surface characteristics within both carotid bulbs. Velocity measurements within both internal carotid arteries correspond to stenosis in the range of 1 to 49%. Antegrade flow is seen within both vertebral arteries. Echocardiogram was obtained and is pending. There were no concerns noted on telemetry. B12 was obtained and was within normal limits at 326. Folate was within normal limits at 13.8. Lipid panel showed triglycerides of 47, total cholesterol 125, LDL of 78, and HDL of 38.0. Infectious work-up was negative. Patient was noted to have some mild hypertension with blood pressures in the mid 150s systolic. Patient was started on low-dose amlodipine. Discussion ensued with the patient and his who state the patient normally has low blood pressure. Because of this we will discharge the patient on his home HCTZ and not continue the amlodipine. Patient was instructed to obtain a blood pressure cuff and check his blood pressure twice daily. He was told record this in a journal. PCP should review this journal and follow-up. We will contact the patient should e chocardiogram reveal any abnormalities. It will be forwarded to the patient's primary care provider. PT and OT did evaluate the patient and recommended he walk with a walker which was obtained for him. He otherwise are recommending no services after discharge. He has been doing well. There are no concerns. Patient and advised to contact 911 or return the emergency room should symptoms of CVA return. Recommend follow-up with primary care provider within 5 to 7 days of discharge, sooner if needed. Recommend repeat CBC, CMP, and magnesium in follow-up. All other home medications were continued at discharge. Patient discharged on baby aspirin and Lipitor 40 mg as noted. Discharged home today. - Patient Instructions Diet: Usual Diet as Tolerated Activity: As Tolerated Driving: Do Not Drive Showering/Bathing: May Shower Notify Provider of: Fever, Increased Pain, Nausea and/or Vomiting Other/Special Instructions: Follow-up with primary care provider within 5 to 7 days of discharge, sooner if needed. Your stroke work-up was essentially normal. Because of this we feel your symptoms are related to a TIA or what many people call a "mini stroke." You were provided education on this. Because of your symptoms we recommend you start a daily low-dose aspirin and a cholesterol pill. Prescriptions for both were sent to your pharmacy. Resume all home medications. Your blood pressure was a bit high while here. Recommend you check your blood pressure twice a day and record this in a journal. Bring this journal with to all medical appointments. You may obtain a battery-operated blood pressure cuff from any of your local pharmacies or [facility]. Should symptoms return or you have other strokelike symptoms such as weakness or paralysis in your arms or legs, slurred speech, difficulty with vision, or other symptoms call 911 or return the emergency room. - Discharge Plan *PRESCRIPTION DRUG MONITORING PROGRAM REVIEWED*: No *COPY OF PRESCRIPTION DRUG MONITORING REPORT IN PATIENT ADRIANO: No Prescriptions/Med Rec: Aspirin [Halfprin] 81 mg PO DAILY #20 tab.ec atorvaSTATin [Lipitor] 40 mg PO BEDTIME #20 tablet Home Medications: Home Meds Finasteride [Proscar] 5 mg PO DAILY 11/12/13 [History] Tamsulosin [Flomax] 0.4 mg PO BEDTIME 11/12/13 [History] hydroCHLOROthiazide [Hydrochlorothiazide] 12.5 mg PO DAILY 11/12/13 [History] Metoprolol Succinate 25 mg PO DAILY #30 tab.er.24h 09/12/19 [Rx] Rivaroxaban [Xarelto] 20 mg PO DAILY #30 tablet 09/12/19 [Rx] Citalopram Hydrobromide [Celexa] 20 mg PO DAILY 02/05/20 [History] Donepezil [Aricept] 10 mg PO BEDTIME 02/05/20 [History] Brimonidine Tartrate [Brimonidine Tartrate 0.2% Ophth Soln] 1 drop EYEBOTH BID 03/03/21 [History] Triamcinolone Acetonide [Kenalog 0.1% Crm] 1 applic TOP BID PRN 03/03/21 [History] Latanoprost [Xalatan] 2 drop EYEBOTH DAILY 03/04/21 [History] Lutein/Minerals/Vit A,C & E [Ocuvite] 1 tab PO BID 03/04/21 [History] Timolol Maleate [Timolol Maleate 0.5% O/S 10 ML] 1 drop EYEBOTH BID 03/04/21 [History] Aspirin [Halfprin] 81 mg PO DAILY #20 tab.ec 03/05/21 [Rx] atorvaSTATin [Lipitor] 40 mg PO BEDTIME #20 tablet 03/05/21 [Rx] Oxygen Therapy Mode: Room Air Patient Handouts: How To Use a Four-Wheeled Walker, How to Take Your Blood Pressure, [id number]-[id number], Transient Ischemic Attack, Dwem-pf-Qona, Ataxia, Hypertension, Adult, Dhkh-ln-Usgn, Dizziness, [id number] Forms: ED Department Discharge Referrals: Trevor Pepper MD [Primary Care Provider] - 03/11/21 3:30 pm (This is the check in time for your appointment.) - Discharge Summary/Plan Comment DC Time >30 min.: Yes Total # of Minutes for Discharge Time: 45 - General Info Date of Service: 03/05/21 Admission Dx/Problem (Free Text: Admission Diagnosis/Problem Admission Diagnosis/Problem Lightheadedness Functional Status: Reports: Pain Controlled, Tolerating Diet, Ambulating, Urinating. Denies: New Symptoms - Review of Systems General: Reports: No Symptoms. Denies: Fever, Weakness, Fatigue, Malaise, Chills HEENT: Reports: No Symptoms. Denies: Headaches, Sore Throat Pulmonary: Reports: No Symptoms. Denies: Shortness of Breath, Cough, Sputum, Wheezing Cardiovascular: Reports: No Symptoms. Denies: Chest Pain, Palpitations, Dyspnea on Exertion, Edema Gastrointestinal: Reports: No Symptoms. Denies: Abdominal Pain, Constipation, Diarrhea, Nausea, Vomiting Genitourinary: Reports: No Symptoms. Denies: Pain Musculoskeletal: Reports: No Symptoms Skin: Reports: No Symptoms. Denies: Cyanosis Neurological: Reports: No Symptoms. Denies: Confusion, Dizziness, Headache, Numbness, Pre-Existing Deficit, Syncope, Tingling, Difficulty Walking, Weakness, Gait Disturbance Psychiatric: Reports: No Symptoms - Patient Data Vitals - Most Recent: Last Vital Signs Temp 97.0 F 03/05/21 11:14 Pulse 61 03/05/21 11:14 Resp 19 03/05/21 11:14 BP 112/66 03/05/21 11:14 Pulse Ox 97 03/05/21 11:14 Weight - Most Recent: 178 lb 4.8 oz I&O - Last 24 hours: Intake & Output 03/04/21 03/05/21 03/05/21 22:59 06:59 14:59 Intake Total 1260 Output Total 400 Balance 860 Lab Results - Last 24 hrs: Laboratory Results - last 24 hr 03/05/21 03/05/21 Range/Units 04:44 04:44 WBC 5.49 (4.23-9.07) K/mm3 RBC 3.61 L (4.63-6.08) M/mm3 Hgb 11.0 L (13.7-17.5) gm/dl Hct 34.7 L (40.1-51.0) % MCV 96.1 H (79.0-92.2) fl MCH 30.5 (25.7-32.2) pg MCHC 31.7 L (32.2-35.5) g/dl RDW Std Deviation 48.3 H (35.1-43.9) fL Plt Count 175 (163-337) K/mm3 MPV 10.0 (9.4-12.3) fl Neut % (Auto) 53.9 (34.0-67.9) % Lymph % (Auto) 29.0 (21.8-53.1) % [place] % (Auto) 11.3 (5.3-12.2) % Eos % (Auto) 4.9 (0.8-7.0) Baso % (Auto) 0.5 (0.1-1.2) % Neut # (Auto) 2.96 (1.78-5.38) K/mm3 Lymph # (Auto) 1.59 (1.32-3.57) K/mm3 [place] # (Auto) 0.62 (0.30-0.82) K/mm3 Eos # (Auto) 0.27 (0.04-0.54) K/mm3 Baso # (Auto) 0.03 (0.01-0.08) K/mm3 Sodium 144 (136-145) mEq/L Potassium 3.8 (3.5-5.1) mEq/L Chloride 106 (98-107) mEq/L Carbon Dioxide 32 (21-32) mEq/L Anion Gap 9.8 (5-15) BUN 18 (7-18) mg/dL Creatinine 1.0 (0.7-1.3) mg/dL Est Cr Clr Drug Dosing 57.52 mL/min Estimated GFR (MDRD) > 60 (>60) mL/min BUN/Creatinine Ratio 18.0 (14-18) Glucose 97 (70-99) mg/dL Calcium 8.2 L (8.5-10.1) mg/dL Total Bilirubin 1.2 H (0.2-1.0) mg/dL AST 12 L (15-37) U/L ALT 16 (16-63) U/L Alkaline Phosphatase 53 (46-116) U/L Total Protein 5.9 L (6.4-8.2) g/dl Albumin 3.1 L (3.4-5.0) g/dl Globulin 2.8 gm/dL Albumin/Globulin Ratio 1.1 (1-2) Med Orders - Current: Current Medications Acetaminophen (Acetaminophen 325 Mg Tab) 650 mg PO Q6H PRN PRN Reason: Pain (Mild 1-3)/fever Albuterol/Ipratropium (Albuterol/Ipratropium 3.0-0.5 Mg/3 Ml Neb Soln) 3 ml NEB Q4H PRN PRN Reason: Shortness Of Breath/wheezing Amlodipine Besylate (Amlodipine 2.5 Mg Tab) 2.5 mg PO DAILY [facility] Last Admin: 03/05/21 10:10 Dose: 2.5 mg Documented by: Aspirin (Aspirin 81 Mg Tab.Ec) 81 mg PO DAILY [facility] Last Admin: 03/05/21 10:10 Dose: 81 mg Documented by: Atorvastatin Calcium (Atorvastatin 40 Mg Tab) 40 mg PO BEDTIME [facility] Last Admin: 03/04/21 20:27 Dose: 40 mg Documented by: Citalopram Hydrobromide (Citalopram 20 Mg Tab Ptom) 20 mg PO DAILY [facility] Last Admin: 03/05/21 10:13 Dose: 20 mg Documented by: Donepezil HCl (Donepezil 10 Mg Tab Ptom) 10 mg PO BEDTIME [facility] Last Admin: 03/04/21 20:27 Dose: 10 mg Documented by: Finasteride (Finasteride 5 Mg Tab Ptom) 5 mg PO DAILY [facility] Last Admin: 03/05/21 10:17 Dose: 5 mg Documented by: Hydralazine HCl (Hydralazine 20 Mg/Ml Sdv) 10 mg IVPUSH Q4H PRN PRN Reason: Hypertension Latanoprost (Latanoprost 0.005% Ophth Soln 2.5 Ml Bottle Ptom) 0 ml EYEBOTH D AILY [facility] Last Admin: 03/05/21 10:28 Dose: 2 drop Documented by: Metoprolol Succinate (Metoprolol Succinate 25 Mg Tab.Er Ptom) 25 mg PO DAILY [facility] Last Admin: 03/05/21 10:15 Dose: 25 mg Documented by: Triamcinolone 0.1% (Cream Ptom) 1 applic TOP BID PRN PRN Reason: dry/irritated skin Xarelto 20 Mg Tab (Ptom) 0 each PO WITHDINNER [facility] Ondansetron HCl (Ondansetron 4 Mg/2 Ml Sdv) 4 mg IV Q6H PRN PRN Reason: Nausea/Vomiting Oxycodone HCl (Oxycodone 5 Mg Tab) 5 mg PO Q4H PRN PRN Reason: Pain (moderate 4-6) Brimonidine Tartrate (0.2% Opth Ptom) 0 each EYEBOTH BID [facility] Last Admin: 03/05/21 10:25 Dose: 1 each Documented by: Tamsulosin HCl (Tamsulosin 0.4 Mg Cap.Er Ptom) 0.4 mg PO BEDTIME [facility] Last Admin: 03/04/21 20:28 Dose: 0.4 mg Documented by: Timolol Maleate (Timolol Maleate 0.5% Ophth Soln Ptom) 0 ml EYEBOTH BID [facility] Last Admin: 03/05/21 10:21 Dose: 1 drop Documented by: Discontinued Medications Amlodipine Besylate (Amlodipine 5 Mg Tab) 2.5 mg PO DAILY [facility] Last Admin: 03/04/21 08:59 Dose: 2.5 mg Documented by: Citalopram Hydrobromide (Citalopram 10 Mg Tab) 10 mg PO DAILY [facility] Last Admin: 03/04/21 08:59 Dose: 10 mg Documented by: Donepezil HCl (Donepezil 10 Mg Tab) 5 mg PO BEDTIME [facility] Finasteride (Finasteride 5 Mg Tab) 5 mg PO DAILY [facility] Last Admin: 03/04/21 08:59 Dose: 5 mg Documented by: Hydrochlorothiazide (Hydrochlorothiazide 12.5 Mg Cap) 12.5 mg PO DAILY [facility] Lactated Ringer's (Ringers, Lactated) 1,000 mls @ 1,000 mls/hr IV .BOLUS ONE Stop: 03/03/21 20:27 Last Admin: 03/03/21 20:00 Dose: 1,000 mls/hr Documented by: Lactated Ringer's (Ringers, Lactated) 1,000 mls @ 65 mls/hr IV ASDIRECTED [facility] Last Admin: 03/03/21 23:45 Dose: 65 mls/hr Documented by: Metoprolol Succinate (Metoprolol Succinate 25 Mg Tab.Er) 25 mg PO DAILY [facility] Last Admin: 03/04/21 08:54 Dose: 25 mg Documented by: Morphine Sulfate (Morphine 2 Mg/Ml Syringe) 2 mg IVPUSH Q4H PRN PRN Reason: Pain (severe 7-10) Stop: 03/04/21 23:01 Non-Formulary Medication (Triamcinolone Acetonide) 1 applic TOP ASDIRECTED [facility] Xarelto 20 Mg Tab (Ptom) 0 each PO DAILY [facility] Last Admin: 03/05/21 10:19 Dose: Not Given Documented by: Brimonidine Tartrate (15 Ml Bottle) 0 each EYEBOTH ASDIRECTED [facility] Rivaroxaban (Rivaroxaban 10 Mg Tab) 20 mg PO DAILY [facility] Last Admin: 03/04/21 08:54 Dose: 20 mg Documented by: Tamsulosin HCl (Tamsulosin 0.4 Mg Cap.Er) 0.4 mg PO BEDTIME [facility] - Exam Quality Assessment: Reports: DVT Prophylaxis. Denies: Supplemental Oxygen, Urine Catheter General: Reports: Alert, Oriented, Cooperative, No Acute Distress HEENT: Reports: Pupils Equal, Pupils Reactive, Mucous Membr. Moist/[place] Neck: Reports: Supple, Trachea Midline Lungs: Reports: Clear to Auscultation, Normal Respiratory Effort Cardiovascular: Reports: Regular Rate, Irregular Rhythm GI/Abdominal Exam: Normal Bowel Sounds, Soft, Non-Tender, No Distention (Male) Exam: Deferred Rectal (Males) Exam: Deferred Back Exam: Reports: Normal Inspection, Full Range of Motion Extremities: Normal Inspection, Normal Range of Motion, Non-Tender, No Pedal Edema, Normal Capillary Refill Skin: Reports: Warm, Dry, Intact Neurological: Reports: No New Focal Deficit Psy/Mental Status: Reports: Alert, Normal Affect, Normal Mood
== END 2021-03-05 14:28 | disposition home or self-care (01) ==
LOC: JD.ED 17:33 → JD.MS 22:57
PROVIDERS: ADMIT Internal Medicine; ATTEND Internal Medicine
DX: R42 Dizziness and giddiness (principal); R53.1 Weakness; I10 Essential (primary) hypertension; E78.00 Pure hypercholesterolemia, unspecified; I48.91 Unspecified atrial fibrillation; G30.9 Alzheimer's disease, unspecified; F02.80 Dementia in other diseases classified elsewhere, unspecified severity, without behavioral disturbance, psychotic disturbance, mood disturbance, and anxiety; E80.6 Other disorders of bilirubin metabolism; Z20.822 Contact with and (suspected) exposure to COVID-19; Z91.013 Allergy to seafood; Z79.899 Other long term (current) drug therapy; Z90.49 Acquired absence of other specified parts of digestive tract; Z98.890 Other specified postprocedural states; Z87.891 Personal history of nicotine dependence; Z79.01 Long term (current) use of anticoagulants
CPT/HCPCS: 0240U; 36415; 70450; 70551; 80053; 80061; 81003; 82607; 82746; 83036; 83735; 83880; 84484; 85025; 85610; 85730; 93005; 93306; 93880; 97116; 97161; 99285; A9270; G0378; J7120

== ENCOUNTER 2021-04-14 13:29 | Emergency (ER) | payer MEDICARE, BC ==
[2021-04-14 14:00] VITALS: BP 143/64; PULSE 54
[2021-04-14] MEDS ORDERED: Sodium Chloride 0.9% 10 ML Syringe FLUSH PRN ×2 (14:11→14:13)
[2021-04-14] MEDS ORDERED: Iopamidol 612 MG/ML 100 ML Bottle IVPUSH ONE (14:13)
== END 2021-04-14 17:54 | disposition home or self-care (01) ==
LOC: JD.ED 13:29
DX: S12.591A Other nondisplaced fracture of sixth cervical vertebra, initial encounter for closed fracture (principal); S30.1XXA Contusion of abdominal wall, initial encounter; S20.212A Contusion of left front wall of thorax, initial encounter; S60.511A Abrasion of right hand, initial encounter; I48.91 Unspecified atrial fibrillation; E78.00 Pure hypercholesterolemia, unspecified; I10 Essential (primary) hypertension; N40.0 Benign prostatic hyperplasia without lower urinary tract symptoms; M19.90 Unspecified osteoarthritis, unspecified site; Z91.013 Allergy to seafood; Z79.82 Long term (current) use of aspirin; Z79.01 Long term (current) use of anticoagulants; Z79.899 Other long term (current) drug therapy; W01.0XXA Fall on same level from slipping, tripping and stumbling without subsequent striking against object, initial encounter; Y92.009 Unspecified place in unspecified non-institutional (private) residence as the place of occurrence of the external cause
CPT/HCPCS: 36415; 70450; 70450-26; 71250; 71250-26; 72125; 72125-26; 73130-26-RT; 73130-RT; 74176; 74176-26; 80053; 81001; 83690; 85025; 99284-25

== ENCOUNTER 2021-06-30 07:17 | Emergency (ER) | payer MEDICARE, BC ==
[2021-06-30] MEDS ORDERED: Sodium Chloride 0.9% 10 ML Syringe FLUSH PRN (07:49)
[2021-06-30] MEDS ORDERED: Sodium Chloride 0.9% 1,000 ML IV SCH (08:00)
[2021-06-30 08:51] LABS: CORONAVIRUS COVID-19 NAA NEGATIVE (NEGATIVE)
[2021-06-30 10:25] VITALS: BP 168/74; PULSE 61
== END 2021-06-30 10:25 | disposition home or self-care (01) ==
LOC: JD.ED 07:17
DX: R42 Dizziness and giddiness (principal); I10 Essential (primary) hypertension; M19.90 Unspecified osteoarthritis, unspecified site; G30.9 Alzheimer's disease, unspecified; Z79.899 Other long term (current) drug therapy; Z91.013 Allergy to seafood; Z79.82 Long term (current) use of aspirin; Z20.822 Contact with and (suspected) exposure to COVID-19
CPT/HCPCS: 0241U; 36415; 70450; 80053; 81001; 83735; 84484; 85025; 93005; 99284; A9270; J3490; J7030

== ENCOUNTER 2021-09-17 13:56 | Inpatient (IN) | payer MEDICARE, BC ==
[2021-09-17] MEDS ORDERED: Ondansetron 4 MG/2 ML SDV IVPUSH ONE (15:02)
[2021-09-17] MEDS ORDERED: HYDROmorphone 0.5 MG/0.5 ML Syringe IVPUSH ONE (15:02)
[2021-09-17] MEDS: Sodium Chloride 0.9% 10 ML Syringe FLUSH PRN ×2 (16:07→17:57)
[2021-09-17] MEDS: Lactated Ringers 1,000 ML IV SCH (16:26)
[2021-09-17] MEDS ORDERED: Iopamidol 612 MG/ML 100 ML Bottle IVPUSH ONE (17:07)
[2021-09-17] MEDS ORDERED: Iopamidol 612 MG/ML 50 ML SDV IVPUSH ONE (17:08)
[2021-09-17] MEDS ORDERED: Levofloxacin/Dextrose 5%-Water 500 MG in Premix Bag 1 BAG IV SCH (19:00)
[2021-09-17] MEDS: metroNIDAZOLE/Normal Saline 500 MG in Premix Bag 1 BAG IV SCH (19:23)
[2021-09-17] MEDS ORDERED: Ondansetron 4 MG/2 ML SDV IV PRN (20:35)
[2021-09-17] MEDS: Donepezil 10 MG Tab PO SCH (21:13)
[2021-09-17] MEDS: QUEtiapine 25 MG Tab PO PRN (21:13)
[2021-09-17] MEDS: Tamsulosin 0.4 MG Cap.ER PO SCH (21:13)
[2021-09-17] MEDS ORDERED: HYDROmorphone 0.5 MG/0.5 ML Syringe IVPUSH PRN (22:00)
[2021-09-18] MEDS: Lactated Ringers 1,000 ML IV SCH ×4 (00:18→19:27)
[2021-09-18] MEDS: metroNIDAZOLE/Normal Saline 500 MG in Premix Bag 1 BAG IV SCH ×3 (02:21→18:12)
[2021-09-18] MEDS ORDERED: Magnesium Sulfate/Water 2 GM in Premix Bag 1 BAG IV ONE (07:39)
[2021-09-18] MEDS: Citalopram 10 MG Tab PO SCH (09:35)
[2021-09-18] MEDS: Hydrochlorothiazide 12.5 MG Cap PO SCH (09:35)
[2021-09-18] MEDS: Finasteride 5 MG Tab PO SCH (09:36)
[2021-09-18] MEDS: Metoprolol Succinate 25 MG Tab.ER PO SCH (09:36)
[2021-09-18] MEDS: Acetaminophen 325 MG Tab PO PRN ×2 (18:08→23:40)
[2021-09-18] MEDS ORDERED: Levofloxacin/Dextrose 5%-Water 500 MG in Premix Bag 1 BAG IV SCH (19:00)
[2021-09-18] MEDS ORDERED: Rivaroxaban 10 MG Tab PO SCH (19:00)
[2021-09-18] MEDS: Donepezil 10 MG Tab PO SCH (21:03)
[2021-09-18] MEDS: Tamsulosin 0.4 MG Cap.ER PO SCH (21:03)
[2021-09-18] MEDS: QUEtiapine 25 MG Tab PO PRN (23:41)
[2021-09-19] MEDS: metroNIDAZOLE/Normal Saline 500 MG in Premix Bag 1 BAG IV SCH ×3 (02:50→11:42)
[2021-09-19] MEDS: Lactated Ringers 1,000 ML IV SCH (05:01)
[2021-09-19] MEDS ORDERED: Iron Polysaccharides Complex 150 MG Cap PO SCH (09:00)
[2021-09-19] MEDS: Metoprolol Succinate 25 MG Tab.ER PO SCH (09:34)
[2021-09-19] MEDS: Hydrochlorothiazide 12.5 MG Cap PO SCH (09:36)
[2021-09-19] MEDS: Finasteride 5 MG Tab PO SCH (09:36)
[2021-09-19] MEDS: Citalopram 10 MG Tab PO SCH (09:37)
[2021-09-19] MEDS ORDERED: Levofloxacin 750 MG Tab PO ONE (12:00)
[2021-09-19] MEDS ORDERED: metroNIDAZOLE 500 MG Tab PO SCH (12:00)
[2021-09-19 12:14] VITALS: BP 148/54; PULSE 62
== END 2021-09-19 14:00 | disposition home or self-care (01) | DRG 392 ==
LOC: JD.ED 13:56 → JD.MS 20:25
PROVIDERS: ADMIT Internal Medicine; ATTEND Internal Medicine
DX: K57.92 Diverticulitis of intestine, part unspecified, without perforation or abscess without bleeding (principal); K57.32 Diverticulitis of large intestine without perforation or abscess without bleeding; I48.0 Paroxysmal atrial fibrillation; G30.9 Alzheimer's disease, unspecified; I48.91 Unspecified atrial fibrillation; E78.00 Pure hypercholesterolemia, unspecified; Z20.822 Contact with and (suspected) exposure to COVID-19; Z66 Do not resuscitate; M19.90 Unspecified osteoarthritis, unspecified site; D50.9 Iron deficiency anemia, unspecified; Z91.02 Food additives allergy status; F02.80 Dementia in other diseases classified elsewhere, unspecified severity, without behavioral disturbance, psychotic disturbance, mood disturbance, and anxiety; N40.0 Benign prostatic hyperplasia without lower urinary tract symptoms; R26.2 Difficulty in walking, not elsewhere classified; I10 Essential (primary) hypertension; E80.6 Other disorders of bilirubin metabolism; Z79.899 Other long term (current) drug therapy; Z79.82 Long term (current) use of aspirin; Z86.73 Personal history of transient ischemic attack (TIA), and cerebral infarction without residual deficits; Z79.01 Long term (current) use of anticoagulants; Z91.81 History of falling; Z98.42 Cataract extraction status, left eye; Z98.41 Cataract extraction status, right eye; Z90.49 Acquired absence of other specified parts of digestive tract; Z87.891 Personal history of nicotine dependence
CPT/HCPCS: 36415; 74019; 74177; 80053; 85025; 86140; 93005; 96361; 96365; 96368; 96375; 99285; J1170; J1956; J2405; J3490 ×3; J7120; Q9967 ×2; U0002; 80048; 82728; 83540; 83735; 85027; 97116-GP; 97162-GP; 97166-GO; 97535-GO; A9270-GY; J3475

== ENCOUNTER 2021-11-02 17:28 | Emergency (ER) | payer MEDICARE, BC ==
[2021-11-02 20:10] VITALS: BP 152/67; PULSE 57
[2021-11-02] MEDS ORDERED: Lactated Ringers 1,000 ML IV SCH (21:00)
== END 2021-11-03 | disposition home or self-care (01) ==
LOC: JD.ED 17:28
DX: R63.0 Anorexia (principal); I10 Essential (primary) hypertension; Z91.013 Allergy to seafood; Z79.899 Other long term (current) drug therapy; Z79.82 Long term (current) use of aspirin; Z90.49 Acquired absence of other specified parts of digestive tract; Z87.891 Personal history of nicotine dependence
CPT/HCPCS: 36415; 80053; 81003; 85025; 96360; 96361; 99284; J7120

== ENCOUNTER 2021-11-04 19:39 | Emergency (ER) | payer MEDICARE, BC ==
[2021-11-04 19:51] VITALS: BP 148/72; PULSE 72
[2021-11-04] MEDS ORDERED: Meclizine 12.5 MG Tab PO ONE (20:02)
[2021-11-04] MEDS ORDERED: Sodium Chloride 0.9% 1,000 ML IV ONE (20:03)
[2021-11-04 21:23] LABS: CORONAVIRUS COVID-19 NAA NEGATIVE (NEGATIVE)
[2021-11-04] MEDS ORDERED: Acetaminophen 325 MG Tab PO ONE (21:53)
== END 2021-11-04 22:00 | disposition home or self-care (01) ==
LOC: JD.ED 19:39
DX: G20 Parkinson's disease (principal); E78.00 Pure hypercholesterolemia, unspecified; I10 Essential (primary) hypertension; I48.91 Unspecified atrial fibrillation; M19.90 Unspecified osteoarthritis, unspecified site; Z91.013 Allergy to seafood; Z79.899 Other long term (current) drug therapy; Z79.82 Long term (current) use of aspirin; Z79.01 Long term (current) use of anticoagulants; Z20.822 Contact with and (suspected) exposure to COVID-19
CPT/HCPCS: 0241U; 36415; 80053; 81001; 83605; 85007; 85027; 96360; 99284; A9270; J7030

== ENCOUNTER 2022-02-11 15:24 | Emergency (ER) | payer MEDICARE, BC ==
[2022-02-11] MEDS ORDERED: Diphtheria,Pertussis(Acell),Tetanus Vaccine 0.5 ML Syringe IM ONE (15:52)
[2022-02-11] MEDS ORDERED: Lidocaine 1% 10 ML MDV INJECT ONE (15:53)
[2022-02-11 18:34] VITALS: BP 130/72; PULSE 65
== END 2022-02-11 18:34 | disposition home or self-care (01) ==
LOC: JD.ED 15:24
DX: S01.312A Laceration without foreign body of left ear, initial encounter (principal); I48.91 Unspecified atrial fibrillation; E78.00 Pure hypercholesterolemia, unspecified; I10 Essential (primary) hypertension; N40.0 Benign prostatic hyperplasia without lower urinary tract symptoms; Z91.013 Allergy to seafood; Z79.01 Long term (current) use of anticoagulants; Z79.899 Other long term (current) drug therapy; Z79.82 Long term (current) use of aspirin; Z23 Encounter for immunization; W19.XXXA Unspecified fall, initial encounter
CPT/HCPCS: 12013; 70450; 70450-26; 90471; 90715; 99283-25

== ENCOUNTER 2022-03-29 16:08 | Emergency (ER) | payer MEDICARE, BC ==
[2022-03-29 16:16] VITALS: PULSE 58
[2022-03-29] MEDS ORDERED: Sodium Chloride 0.9% 10 ML Syringe FLUSH PRN (16:17)
[2022-03-29 18:16] LABS: CORONAVIRUS COVID-19 NAA NEGATIVE (NEGATIVE)
[2022-03-29] MEDS ORDERED: Doxycycline Monohydrate 100 MG Cap PO ONE (18:32)
[2022-03-29 19:09] VITALS: BP 178/83
== END 2022-03-29 19:05 | disposition home or self-care (01) ==
LOC: JD.ED 16:08
DX: J40 Bronchitis, not specified as acute or chronic (principal); R06.00 Dyspnea, unspecified; G30.9 Alzheimer's disease, unspecified; E78.00 Pure hypercholesterolemia, unspecified; I10 Essential (primary) hypertension; Z91.013 Allergy to seafood; Z79.899 Other long term (current) drug therapy; Z79.82 Long term (current) use of aspirin; Z90.49 Acquired absence of other specified parts of digestive tract; Z20.822 Contact with and (suspected) exposure to COVID-19
CPT/HCPCS: 0241U; 36415; 70450; 71045; 80053; 84484; 85025; 93005; 99285; A9270; J3490

== ENCOUNTER 2022-06-10 20:11 | Emergency (ER) | payer MEDICARE, BC ==
[2022-06-10 22:42] VITALS: BP 133/80; PULSE 88
== END 2022-06-10 22:20 | disposition home or self-care (01) ==
LOC: JD.ED 20:11
DX: G30.9 Alzheimer's disease, unspecified (principal); F02.80 Dementia in other diseases classified elsewhere, unspecified severity, without behavioral disturbance, psychotic disturbance, mood disturbance, and anxiety; I48.91 Unspecified atrial fibrillation; E78.00 Pure hypercholesterolemia, unspecified; I10 Essential (primary) hypertension; N40.0 Benign prostatic hyperplasia without lower urinary tract symptoms; M19.90 Unspecified osteoarthritis, unspecified site; Z91.013 Allergy to seafood; Z79.82 Long term (current) use of aspirin; Z79.899 Other long term (current) drug therapy; W19.XXXA Unspecified fall, initial encounter
CPT/HCPCS: 99283

== ENCOUNTER 2022-09-16 15:06 | Emergency (ER) | payer MEDICARE, BC ==
[2022-09-16 16:44] LABS: HEMATOCRIT 38.4 % (40.1-51.0); HEMOGLOBIN 12.3 gm/dl (13.7-17.5); MEAN CORPUSCULAR HEMOGLOBIN 31.1 pg (25.7-32.2); MEAN CORPUSCULAR VOLUME 97.2 fl (79.0-92.2); MEAN PLATELET VOLUME 9.9 fl (9.4-12.3); PLATELET COUNT,PLT 199 K/mm3 (163-337); RED BLOOD CELL COUNT 3.95 M/mm3 (4.63-6.08); WHITE BLOOD CELL COUNT,WBC 5.08 K/mm3 (4.23-9.07)
[2022-09-16 17:15] LABS: A/G RATIO 0.9 (1-2); ALANINE AMINOTRANSFERASE,ALT 17 U/L (16-63); ALBUMIN 3.2 g/dl (3.4-5.0); ALKALINE PHOSPHATASE 76 U/L (46-116); ANION GAP 9.6 (5-15); ASPARTATE AMNIOTRANSFERASE,AST 16 U/L (15-37); BILIRUBIN TOTAL 0.7 mg/dL (0.2-1.0); BLOOD UREA NITROGEN,BUN 13 mg/dL (7-18); BUN/CREATININE RATIO 14.4 (14-18); C-REACTIVE PROTEIN <0.2 mg/dL (<1.0); CALCIUM 8.3 mg/dL (8.5-10.1); CARBON DIOXIDE,CO2 29 mEq/L (21-32); CHLORIDE,CL 105 mEq/L (98-107); CREATININE 0.9 mg/dL (0.7-1.3); ESTIMATED GFR 83 mL/min (>60); GLUCOSE RANDOM 99 mg/dL (70-99); POTASSIUM,K 3.6 mEq/L (3.5-5.1); PROTEIN TOTAL,TP 6.9 g/dl (6.4-8.2); SODIUM,NA 140 mEq/L (136-145)
[2022-09-16 17:26] LABS: BAND PERCENT MAN 0 % (0-10); BASOPHILS PERCENT MAN 0 (0.2-1.2); EOSINOPHILS PERCENT MAN 4 % (0.8-7.0); LYMPHOCYTES % ATYPICAL MANUAL 0 %; LYMPHOCYTES PERCENT MAN 33 % (20-40); MONOCYTES PERCENT MAN 1 % (2-10); PLATELET COUNT ESTIMATE ADEQUATE
[2022-09-16 17:27] LABS: ANISOCYTOSIS 1+ SLIGHT
[2022-09-16 17:34] LABS: APPEARANCE,URINE CLEAR (Clear); BILIRUBIN,URINE NEGATIVE (Negative); COLOR,URINE YELLOW (Yellow); GLUCOSE,URINE NEGATIVE (Negative); KETONES,URINE NEGATIVE (Negative); LEUKOCYTE ESTERASE,URINE NEGATIVE (Negative); NITRITE,URINE NEGATIVE (Negative); OCCULT BLOOD,URINE NEGATIVE (Negative); PROTEIN,URINE 1+ (Negative); UROBILINOGEN,URINE 0.2 (0.2-1.0)
[2022-09-16 17:52] LABS: BACTERIA,URINE FEW /hpf (FEW); MUCUS,URINE MODERATE /hpf (FEW); RBC,URINE 0-5 /hpf (0-5); SQUAMOUS EPITHELIAL CELLS,UR 0-5 /hpf (0-5); WBC,URINE 0-5 /hpf (0-5)
[2022-09-16 18:32] VITALS: BP 178/92; PULSE 62
[2022-09-16] MEDS ORDERED: Doxycycline Monohydrate 100 MG Cap PO ONE (18:50)
== END 2022-09-16 19:16 | disposition home or self-care (01) ==
LOC: JD.ED 15:06
DX: S40.012A Contusion of left shoulder, initial encounter (principal); G30.9 Alzheimer's disease, unspecified; F02.83 Dementia in other diseases classified elsewhere, unspecified severity, with mood disturbance; L13.1 Subcorneal pustular dermatitis; L03.119 Cellulitis of unspecified part of limb; N40.0 Benign prostatic hyperplasia without lower urinary tract symptoms; I48.91 Unspecified atrial fibrillation; M19.90 Unspecified osteoarthritis, unspecified site; Z91.013 Allergy to seafood; Z79.82 Long term (current) use of aspirin; Z79.01 Long term (current) use of anticoagulants; Z79.899 Other long term (current) drug therapy; W19.XXXA Unspecified fall, initial encounter; Y92.009 Unspecified place in unspecified non-institutional (private) residence as the place of occurrence of the external cause
CPT/HCPCS: 36415; 70450; 71045; 73030; 80053; 81001; 82947; 83605; 85007; 85027; 86140; 87040; 99285; A9270